=== PATIENT | male | born 1940 | race Caucasian/White ===

== ENCOUNTER 2020-06-15 17:29 | Inpatient (IN) | payer MEDICARE, BC ==
--- NOTE | 2020-06-15 17:45 | ED ---
General Adult HPI - General Stated complaint: ANTONIA,Weakness Time Seen by Provider: 06/15/20 17:30 Source: patient, RN notes reviewed, old records reviewed - History of Present Illness Initial comments: This is an 79-year-old male who presents emergency department via EMS. According to EMS they got a call that the patient was having difficulty breathing was somewhat altered when he arrived and difficult to arouse. Patient was put on BiPAP and given some breathing treatments on the way and he became much more alert and oriented. Patient himself is a poor historian he does state he was somewhat short of breath but currently does not have any complaints. At this point and we have no further history of no medication list and patient hasn't been here for 5-6 years. Family will be arriving shortly family did arrive and indicated to me that the patient's heart rate was down in the high 30s and low 40s earlier today and has when she called EMS. - Related Data Allergies Allergy/AdvReac Type Severity Reaction Status Date / Time No Known Allergies Allergy Verified 06/15/20 17:43 Review of Systems ROS Statement: Those systems with pertinent positive or pertinent negative responses have been documented in the HPI. ROS Other: All systems not noted in ROS Statement are negative. General Exam - General Exam Comments Initial Comments: GENERAL: Patient is well-developed and well-nourished. Patient is nontoxic and well- hydrated and is in mild distress. ENT: Neck is soft and supple. No significant lymphadenopathy is noted. Oropharynx is clear. Moist mucous membranes. Neck has full range of motion without eliciting any pain. EYES: The sclera were anicteric and conjunctiva were pink and moist. Extraocular movements were intact and pupils were equal round and reactive to light. Eyelids were unremarkable. PULMONARY: Patient has crackles bilaterally. CARDIOVASCULAR: There is a regular rate and rhythm without any murmurs gallops or rubs. ABDOMEN: Soft and nontender with normal bowel sounds. SKIN: Skin is clear with no lesions or rashes and otherwise unremarkable. NEUROLOGIC: Patient is alert and oriented 2. Cranial nerves II through XII are grossly intact. Patient cannot move left leg at all which she states is normal. MUSCULOSKELETAL: Patient has 1+ edema to the left leg down to the right. LYMPHATICS: No significant lymphadenopathy is noted PSYCHIATRIC: Normal psychiatric evaluation. Course Vital Signs 06/15/20 06/15/20 06/15/20 17:37 18:01 18:37 Pulse Rate 98 82 Respiratory 18 18 16 Rate Blood Pressure 102/73 114/69 O2 Sat by Pulse 92 L 95 Oximetry 06/15/20 06/15/20 06/15/20 19:10 19:17 19:34 Pulse Rate 82 Respiratory 18 Rate Blood Pressure O2 Sat by Pulse 95 90 L Oximetry 06/15/20 19:45 Pulse Rate 83 Respiratory 16 Rate Blood Pressure O2 Sat by Pulse Oximetry Medical Decision Making - Medical Decision Making EKG shows atrial fibrillation at a rate of 80 bpm QRS is 140 QT interval 400 QTC is 44 patient has a right bundle no block. Patient has some inverted T waves in leads V1 through V5 Patient had no bradycardic episodes while in the emergency department but the daughter insisted he was bradycardic at home. Chest x-ray shows no acute normalities. Computed tomography scan of the chest shows no PE however there is some patchy infiltrates in the bases bilaterally. Patient has had no cough he said no fever there is no white count. I spoke with [facility] hospitalist and they agreed to admit the patient I admitting the patient for bradycardia which the family states was happening at home however it has not occurred in the emergency department. I went back in the room to reevaluate the patient he was satting 98% while sleeping on 4 L. - Lab Data Result diagrams: 06/15/20 17:57 06/15/20 17:57 Lab Results 06/15/20 06/15/20 06/15/20 Range/Units 17:41 17:57 17:57 WBC 7.8 (3.8-10.6) k/uL RBC 4.47 (4.30-5.90) m/uL Hgb 11.5 L (13.0-17.5) gm/dL Hct 38.1 L (39.0-53.0) % MCV 85.3 (80.0-100.0) fL MCH 25.8 (25.0-35.0) pg MCHC 30.3 L (31.0-37.0) g/dL RDW 18.8 H (11.5-15.5) % Plt Count 259 (150-450) k/uL MPV 7.0 Neutrophils % 79 % Lymphocytes % 13 % Monocytes % 6 % Eosinophils % 1 % Basophils % 1 % Neutrophils # 6.1 (1.3-7.7) k/uL Lymphocytes # 1.0 (1.0-4.8) k/uL Monocytes # 0.5 (0-1.0) k/uL Eosinophils # 0.1 (0-0.7) k/uL Basophils # 0.0 (0-0.2) k/uL Hypochromasia Marked Anisocytosis Slight PT 11.9 (9.0-12.0) sec INR 1.1 (<1.2) APTT 25.0 (22.0-30.0) sec Sample Site ABG pH (7.35-7.45) ABG pCO2 (35-45) mmHg ABG pO2 (83-108) mmHg ABG HCO3 (21-25) mmol/L ABG Total CO2 (19-24) mmol/L ABG O2 Saturation (94-97) % ABG Base Excess mmol/L Nolan Test FiO2 % Sodium (137-145) mmol/L Potassium (3.5-5.1) mmol/L Chloride (98-107) mmol/L Carbon Dioxide (22-30) mmol/L Anion Gap mmol/L BUN (9-20) mg/dL Creatinine (0.66-1.25) mg/dL Est GFR (CKD-EPI)AfAm (>60 ml/min/1.73 sqM) Est GFR (CKD-EPI)NonAf (>60 ml/min/1.73 sqM) Glucose (74-99) mg/dL Lactic Ac Sepsis Rflx Plasma Lactic Acid Peewee (0.7-2.0) mmol/L Calcium (8.4-10.2) mg/dL Magnesium (1.6-2.3) mg/dL Total Bilirubin (0.2-1.3) mg/dL AST (17-59) U/L ALT (4-49) U/L Alkaline Phosphatase (38-126) U/L Troponin I (0.000-0.034) ng/mL NT-Pro-B Natriuret Pep pg/mL Total Protein (6.3-8.2) g/dL Albumin (3.5-5.0) g/dL Coronavirus (PCR) Not Detected (Not Detectd) 06/15/20 06/15/20 06/15/20 Range/Units 17:57 17:57 17:57 WBC (3.8-10.6) k/uL RBC (4.30-5.90) m/uL Hgb (13.0-17.5) gm/dL Hct (39.0-53.0) % MCV (80.0-100.0) fL MCH (25.0-35.0) pg MCHC (31.0-37.0) g/dL RDW (11.5-15.5) % Plt Count (150-450) k/uL MPV Neutrophils % % Lymphocytes % % Monocytes % % Eosinophils % % Basophils % % Neutrophils # (1.3-7.7) k/uL Lymphocytes # (1.0-4.8) k/uL Monocytes # (0-1.0) k/uL Eosinophils # (0-0.7) k/uL Basophils # (0-0.2) k/uL Hypochromasia Anisocytosis PT (9.0-12.0) sec INR (<1.2) APTT (22.0-30.0) sec Sample Site ABG pH (7.35-7.45) ABG pCO2 (35-45) mmHg ABG pO2 (83-108) mmHg ABG HCO3 (21-25) mmol/L ABG Total CO2 (19-24) mmol/L ABG O2 Saturation (94-97) % ABG Base Excess mmol/L Nolan Test FiO2 % Sodium 139 (137-145) mmol/L Potassium 5.1 (3.5-5.1) mmol/L Chloride 97 L (98-107) mmol/L Carbon Dioxide 31 H (22-30) mmol/L Anion Gap 11 mmol/L BUN 15 (9-20) mg/dL Creatinine 0.89 (0.66-1.25) mg/dL Est GFR (CKD-EPI)AfAm >90 (>60 ml/min/1.73 sqM) Est GFR (CKD-EPI)NonAf 80 (>60 ml/min/1.73 sqM) Glucose 162 H (74-99) mg/dL Lactic Ac Sepsis Rflx Plasma Lactic Acid Peewee 2.8 H* (0.7-2.0) mmol/L Calcium 9.4 (8.4-10.2) mg/dL Magnesium 1.9 (1.6-2.3) mg/dL Total Bilirubin 1.3 (0.2-1.3) mg/dL AST 37 (17-59) U/L ALT 11 (4-49) U/L Alkaline Phosphatase 63 (38-126) U/L Troponin I <0.012 (0.000-0.034) ng/mL NT-Pro-B Natriuret Pep pg/mL Total Protein 7.4 (6.3-8.2) g/dL Albumin 4.6 (3.5-5.0) g/dL Coronavirus (PCR) (Not Detectd) 06/15/20 06/15/20 06/15/20 Range/Units 17:57 18:26 19:36 WBC (3.8-10.6) k/uL RBC (4.30-5.90) m/uL Hgb (13.0-17.5) gm/dL Hct (39.0-53.0) % MCV (80.0-100.0) fL MCH (25.0-35.0) pg MCHC (31.0-37.0) g/dL RDW (11.5-15.5) % Plt Count (150-450) k/uL MPV Neutrophils % % Lymphocytes % % Monocytes % % Eosinophils % % Basophils % % Neutrophils # (1.3-7.7) k/uL Lymphocytes # (1.0-4.8) k/uL Monocytes # (0-1.0) k/uL Eosinophils # (0-0.7) k/uL Basophils # (0-0.2) k/uL Hypochromasia Anisocytosis PT (9.0-12.0) sec INR (<1.2) APTT (22.0-30.0) sec Sample Site Right Radial ABG pH 7.43 (7.35-7.45) ABG pCO2 46 H (35-45) mmHg ABG pO2 63 L (83-108) mmHg ABG HCO3 30 H (21-25) mmol/L ABG Total CO2 32 H (19-24) mmol/L ABG O2 Saturation 89.7 L (94-97) % ABG Base Excess 5.8 mmol/L Nolan Test Yes FiO2 45 % Sodium (137-145) mmol/L Potassium (3.5-5.1) mmol/L Chloride (98-107) mmol/L Carbon Dioxide (22-30) mmol/L Anion Gap mmol/L BUN (9-20) mg/dL Creatinine (0.66-1.25) mg/dL Est GFR (CKD-EPI)AfAm (>60 ml/min/1.73 sqM) Est GFR (CKD-EPI)NonAf (>60 ml/min/1.73 sqM) Glucose (74-99) mg/dL Lactic Ac Sepsis Rflx Y Plasma Lactic Acid Peewee (0.7-2.0) mmol/L Calcium (8.4-10.2) mg/dL Magnesium (1.6-2.3) mg/dL Total Bilirubin (0.2-1.3) mg/dL AST (17-59) U/L ALT (4-49) U/L Alkaline Phosphatase (38-126) U/L Troponin I (0.000-0.034) ng/mL NT-Pro-B Natriuret Pep 1720 pg/mL Total Protein (6.3-8.2) g/dL Albumin (3.5-5.0) g/dL Coronavirus (PCR) (Not Detectd) Disposition Clinical Impression: Bradycardia, Dyspnea Disposition: ADMITTED IP TO THIS HOSP Referrals: None,Stated [REFERRING] - 1-2 days Time of Disposition: 20:37
[2020-06-15 18:07] LABS: Anisocytosis Slight; Basophils % (A) 1 %; Eosinophils # (A) 0.1 k/uL (0-0.7); Eosinophils % (A) 1 %; HCT 38.1 % (39.0-53.0); HGB 11.5 gm/dL (13.0-17.5); Hypochromasia Marked; Lymphocytes % (A) 13 %; MCH 25.8 pg (25.0-35.0); MCHC 30.3 g/dL (31.0-37.0); MCV 85.3 fL (80.0-100.0); Monocytes # (A) 0.5 k/uL (0-1.0); Monocytes % (A) 6 %; Neutrophils # (A) 6.1 k/uL (1.3-7.7); Neutrophils % (A) 79 %; Platelet Count 259 k/uL (150-450); RBC 4.47 m/uL (4.30-5.90); RDW 18.8 % (11.5-15.5); WBC 7.8 k/uL (3.8-10.6)
[2020-06-15 18:14] LABS: INR 1.1 (<1.2); Prothrombin Time 11.9 sec (9.0-12.0)
[2020-06-15 18:17] LABS: ALT 11 U/L (4-49); AST 37 U/L (17-59); African American GFR (CKD) >90 (>60 ml/min/1.73 sqM); Albumin 4.6 g/dL (3.5-5.0); Alkaline Phosphatase 63 U/L (38-126); Anion Gap 11 mmol/L; Blood Urea Nitrogen 15 mg/dL (9-20); Calcium 9.4 mg/dL (8.4-10.2); Carbon Dioxide 31 mmol/L (22-30); Chloride 97 mmol/L (98-107); Glucose 162 mg/dL (74-99); Magnesium 1.9 mg/dL (1.6-2.3); Non-African American GFR(CKD) 80 (>60 ml/min/1.73 sqM); Sodium 139 mmol/L (137-145); Total Bilirubin 1.3 mg/dL (0.2-1.3); Total Protein 7.4 g/dL (6.3-8.2)
[2020-06-15 18:24] LABS: Potassium 5.1 mmol/L (3.5-5.1)
--- NOTE | 2020-06-15 18:35 | XR ---
EXAMINATION TYPE: XR chest 2V DATE OF EXAM: 06/15/2020 COMPARISON: NONE HISTORY: Short of breath and weakness TECHNIQUE: 2 views FINDINGS: Heart is normal. There is some atelectasis left lung base. There is no pleural effusion. Th ere are no hilar masses. There is poor inspiration. IMPRESSION: There is mild atelectasis left lung base. No heart failure.
[2020-06-15] MEDS ORDERED: IPRATROPIUM-ALBUTEROL 3 ML NEB INHALATION STA (19:24)
[2020-06-15 19:38] LABS: ABG Base Excess 5.8 mmol/L; ABG HCO3 30 mmol/L (21-25); ABG Oxygen Saturation 89.7 % (94-97); ABG PCO2 46 mmHg (35-45); ABG PH 7.43 (7.35-7.45); ABG PO2 63 mmHg (83-108); ABG TCO2 32 mmol/L (19-24); Allen Test Performed? Yes
--- NOTE | 2020-06-15 20:28 | CT ---
EXAMINATION TYPE: CT chest angio for PE DATE OF EXAM: 06/15/2020 COMPARISON: None HISTORY: Dyspnea. CT DLP: 416.2 mGycm Automated exposure control for dose reduction was used. CONTRAST: Performed with IV Contrast, patient injected with 100ml mL of Isovue 300. Images obtained from the thoracic inlet to the diaphragm with IV contrast and 3-D post processed imag es. There is coarse interstitial infiltrate and atelectasis in the mid and lower lung madrigal. There is el evation of the diaphragms. Heart is enlarged. There is no pericardial effusion. There is no pleural e ffusion. There are bilateral bronchial lymph nodes that measure up to 1 cm. Thoracic aorta is intact without evidence of aneurysm or dissection. The ascending aorta measures 3.7 cm. There is normal contrast opacification of the pulmonary arteries. There are no filling defects. There is some narrowing of the lower lobe bronchi. There is spurring in the thoracic spine. There is no compression fracture. IMPRESSION: No evidence of pulmonary embolism. Bilateral lower lobe pulmonary patchy interstitial infiltrates and atelectasis.
[2020-06-15] MEDS ORDERED: methylPREDNISolone SOD SUCCI 125 MG/2 ML VIAL IV STA (20:40)
[2020-06-15] MEDS ORDERED: traZODone HCL 50 MG TAB PO PRN (22:01)
[2020-06-16] MEDS: methylPREDNISolone SOD SUCCI 125 MG/2 ML VIAL IV SCH ×2 (03:10→09:34)
[2020-06-16] MEDS: ACETAMINOPHEN TAB 325 MG TAB PO PRN ×2 (05:42→19:00)
[2020-06-16 06:08] LABS: Glucose,Whole Blood 386 mg/dL (75-99)
[2020-06-16] MEDS: INSULIN ASPART (NovoLOG) 100 UNIT/ML VIAL SQ SCH ×5 (06:26→17:08)
[2020-06-16] MEDS: IPRATROPIUM-ALBUTEROL 3 ML NEB INHALATION PRN ×3 (07:18→19:58)
[2020-06-16] MEDS ORDERED: FUROSEMIDE 10 MG/ML 4 ML VIAL IV SCH (09:00)
[2020-06-16] MEDS ORDERED: INSULIN DETEMIR (LEVEMIR) 100 UNIT/ML SYR SQ SCH (09:00)
[2020-06-16] MEDS: APIXABAN 5 MG TAB PO SCH (09:24)
[2020-06-16] MEDS: TAMSULOSIN 0.4 MG CAP.ER.24H PO SCH (09:25)
[2020-06-16] MEDS: BENZONATATE 100 MG CAP PO PRN ×2 (09:25→19:00)
[2020-06-16] MEDS: METOPROLOL TARTRATE 50 MG TAB PO SCH (09:28)
--- NOTE | 2020-06-16 09:39 | US ---
EXAMINATION TYPE: US venous doppler duplex LE LT DATE OF EXAM: 06/16/2020 9:01 AM COMPARISON: NONE CLINICAL HISTORY: swelling. SIDE PERFORMED: Left TECHNIQUE: The lower extremity deep venous system is examined utilizing real time linear array sonog leona with graded compression, doppler sonography and color-flow sonography. VESSELS IMAGED: Common Femoral Vein Deep Femoral Vein Greater Saphenous Vein * Femoral Vein Popliteal Vein Small Saphenous Vein * Proximal Calf Veins (* superficial vessels) Left Leg: Negative for DVT IMPRESSION: 1. Left lower extremity ultrasound negative for deep venous thrombosis.
--- NOTE | 2020-06-16 10:58 | ECHOF ---
Referral Reason:sob MEASUREMENTS -------- HEIGHT: 170.2 cm WEIGHT: 78.9 kg BP: 148/82 RVIDd: 2.9 cm (< 3.3) IVSd: 1.3 cm (0.6 - 1.1) LVIDd: 3.9 cm (3.9 - 5.3) LVPWd: 1.3 cm (0.6 - 1.1) IVSs: 1.6 cm LVIDs: 2.5 cm LVPWs: 1.3 cm LA Diam: 4.5 cm (2.7 - 3.8) Ao Diam: 4.0 cm (2.0 - 3.7) AV Cusp: 1.6 cm (1.5 - 2.6) LA Diam: 4.3 cm (2.7 - 3.8) MV EXCURSION: 18.807 mm (> 18.000) MV EF SLOPE: 69 mm/s (70 - 150) EPSS: 0.9 cm RAP: 5.00 mmHg RVSP: 28.58 mmHg FINDINGS -------- Atrial fibrillation. This was a technically adequate study. The left ventricular size is normal. There is mild concentric left ventricular hypertrophy. Overa ll left ventricular systolic function is low-normal with, an EF between 50 - 55 %. The right ventricle is normal in size. The left atrial size is normal. The right atrial size is normal. The aortic valve is trileaflet, and appears structurally normal. No aortic stenosis or regurgitation. Mild mitral regurgitation is present. Mild tricuspid regurgitation present. The right ventricular systolic pressure, as measured by Doppl er, is 28.58mmHg. Trace/mild (physiologic) pulmonic regurgitation. The aortic root size is normal. There is no pericardial effusion. CONCLUSIONS -------- 1. Atrial fibrillation. 2. The left ventricular size is normal. 3. There is mild concentric left ventricular hypertrophy. 4. Overall left ventricular systolic function is low-normal with, an EF between 50 - 55 %. 5. The right ventricle is normal in size. 6. The left atrial size is normal. 7. The right atrial size is normal. 8. Mild mitral regurgitation is present. 9. Mild tricuspid regurgitation present. 10. The right ventricular systolic pressure, as measured by Doppler, is 28.58mmHg. 11. Trace/mild (physiologic) pulmonic regurgitation. 12. The aortic root size is normal. 13. There is no pericardial effusion. CONFERENCE DIRECTOR: Khadijah Russell RDCS
[2020-06-16 11:34] LABS: Glucose,Whole Blood 428 mg/dL (75-99)
--- NOTE | 2020-06-16 11:48 | P.CRDCN ---
History of Present Illness History of present illness: cough x2 months HISTORY OF PRESENTING ILLNESS This is a pleasant 79-year-old male past medical history significant for any persistent atrial fibrillation on long-term anticoagulation, COPD, diabetes mellitus, dyslipidemia, CVA and hypertension. He follows in the office with Dr. Soria. We have been asked to see in consultation for bradycardia. He presented to the hospital with complaints of cough x2 months with shortness of breath and altered mental status. Apparently the family was concerned because at home they felt his pulse and it was 30-40. Since being in the hospital telemetry tracings indicate persistent atrial fibrillation with heart rate has been in the 80's. Blood pressure 128/78. Maintaining oxygen saturation on nasal cannula. He is seen and examined sitting up in bed in no acute distress. He is somewhat of a poor historian. He continues to have a wet cough. He denies shortness of breath, chest pain, dizziness or palpitations. Echocardiogram ob tained reveals preserved LV systolic function with ejection fraction 50-55%. DIAGNOSTICS EKG reveals atrial fibrillation, right bundle branch block heart rate of 88. Telemetry tracings indicate in atrial fibrillation with heart rate in the 80s. Chest xray mild atelectasis at the left lung base. CTA is negative for pulmonary embolism with bilateral lower lobe patchy interstitial infiltrates and atelectasis. Laboratory reviewed, WBC 7.8, hemoglobin 11.5, platelets 259, pCO2 46, pO2 63, bicarb 30, pH 7.43, sodium 139, potassium 4.1, creatinine 0.89, lactic acid on admission 2. 8 repeat 1.9, cardiac enzymes negative 1 and proBNP 1720.. Current cardiac medications include Eliquis 5 mg twice a day, enalapril 2.5 mg daily, Lasix 40 mg daily, atorvastatin 20 mg daily, diltiazem 30 mg 3 times a d ay, Lopressor 100 mg twice a day. REVIEW OF SYSTEMS At the time of my exam: CONSTITUTIONAL: Denies fever or chills. CARDIOVASCULAR: Denies chest pain, shortness of breath, orthopnea, PND or palpitations. RESPIRATORY: Complains of cough. GASTROINTESTINAL: Denies abdominal pain, diarrhea, constipation, nausea or vomiting. MUSCULOSKELETAL: Denies myalgias. NEUROLOGIC: Denies numbness, tingling, headacbe or weakness. ENDOCRINE: Denies fatigue, weight change, polydipsia or polyurina. GENITOURINARY: Denies burning, hematuria or urgency with micturation. HEMATOLOGIC: Denies history of anemia or bleeding. PHYSICAL EXAMINATION Blood pressure 128/78 heart rate 85 afebrile and maintaining oxygen saturation on nasal cannula. CONSTITUTIONAL: No apparent distress. HEENT: Head is normocephalic. Pupils are equal, round. Sclerae anicteric. Mucous membranes of the mouth are moist. No JVD. No carotid bruit. CHEST EXAMINATION: Scattered rhonchi, no rales or wheezes. No chest wall tenderness is noted on palpation or with deep breathing. HEART EXAMINATION: Irregular rate and rhythm. S1, S2 heard. No murmurs, gallops or rub. ABDOMEN: Soft, nontender. Positive bowel sounds. EXTREMITIES: 2+ peripheral pulses, no lower extremity edema and no calf tenderness. NEUROLOGIC EXAMINATION: Patient is awake, alert and oriented. ASSESSMENT Cough with bilateral infiltrates, presumed COVID. Lactic acidosis Chronic persistent atrial fibrillation COPD Diabetes mellitus Hypertension CVA Dyslipidemia PLAN Given his clinical picture, recommend repeat send out COVID test despite negative rapid. Resume cardizem as previously ordered. Continue lopressor, lasix, atorvastatin, enalapril and eliquis as previously ordered. Possibly the family was having a difficult time palpating his pulse due to his afib, or he was having some bradycardia due to coughing. There has been no bradycardia noted since admission. No further cardiac testing at this time. Thank you kindly for this consultation. Nurse Practitioner note has been reviewed, I agree with a documented findings and plan of care. Patient was seen and examined. 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 History of Any Multi-Drug Resistant Organisms: None Reported Past Surgical History: No Surgical Hx Reported Smoking Status: Never smoker Past Alcohol Use History: Daily Past Drug Use History: None Reported Medications and Allergies Home Medications Medication Instructions Recorded Confirmed Type Acetaminophen [Tylenol] 1,000 mg PO ONCE PRN 06/15/20 06/15/20 History Albuterol Inhaler [Ventolin Hfa 1 - 2 puff INHALATION RT-Q6H PRN 06/15/20 06/15/20 History Inhaler] Apixaban [Eliquis] 5 mg PO BID 06/15/20 06/15/20 History Ascorbic Acid [Vitamin C] 500 mg PO DAILY 06/15/20 06/15/20 History Atorvastatin [Lipitor] 20 mg PO HS 06/15/20 06/15/20 History Citalopram Hydrobromide 20 mg PO DAILY 06/15/20 06/15/20 History [Citalopram HBr] Cyclobenzaprine [Flexeril] 5 mg PO Q8H PRN 06/15/20 06/15/20 History Enalapril Maleate 2.5 mg PO DAILY 06/15/20 06/15/20 History Ferrous Sulfate [Iron (65 MG 325 mg PO BID 06/15/20 06/15/20 History Elemental)] Flaxseed Oil 1,000 mg PO DAILY 06/15/20 06/15/20 History Furosemide [Lasix] 40 mg PO DAILY 06/15/20 06/15/20 History Gabapentin [Neurontin] 600 mg PO TID PRN 06/15/20 06/15/20 History HYDROcodone/APAP 5-325MG [[place] 1 tab PO Q6H PRN 06/15/20 06/15/20 History 5-325] Insulin Detemir [Levemir Flextouch] 32 unit SQ BID 06/15/20 06/15/20 History Insulin Lispro [humaLOG Kwikpen] 17 unit SQ TID-W/MEALS 06/15/20 06/15/20 History Metoprolol Tartrate [Lopressor] 100 mg PO BID 06/15/20 06/15/20 History Pantoprazole Sodium [Protonix] 40 mg PO DAILY 06/15/20 06/15/20 History Tamsulosin HCl [Flomax] 0.4 mg PO DAILY 06/15/20 06/15/20 History dilTIAZem HCL [Diltiazem HCl] 30 mg PO TID 06/15/20 06/15/20 History traZODone HCL [Desyrel] 50 mg PO HS PRN 06/15/20 06/15/20 History Allergies Allergy/AdvReac Type Severity Reaction Status Date / Time No Known Allergies Allergy Verified 06/15/20 20:50 Physical Exam Vitals: Vital Signs Temp Pulse Pulse Resp BP BP Pulse Ox 06/16/20 08:25 98.1 F 140 H 18 128/78 06/16/20 07:30 104 H 06/16/20 07:18 104 H 06/16/20 04:00 95 18 148/82 96 06/16/20 02:00 95 18 06/15/20 23:30 98.4 F 95 18 123/57 93 L 06/15/20 21:16 98.5 F 98 20 140/68 97 06/15/20 21:00 82 95 06/15/20 20:40 92 18 115/90 94 L 06/15/20 19:45 83 16 06/15/20 19:34 82 18 06/15/20 19:17 90 L 06/15/20 19:10 95 06/15/20 18:37 82 16 114/69 95 06/15/20 18:01 18 06/15/20 17:37 98 18 102/73 92 L Intake and Output 06/15/20 06/16/20 06/16/20 22:59 06:59 14:59 Intake Total 240 Balance 240 Intake: Oral 240 Other: Voiding Method Diaper # Voids 1 Weight 79.379 kg 79 kg Results 06/15/20 17:57 06/15/20 17:57 Cardiac Enzymes 06/15/20 06/15/20 Range/Units 17:57 17:57 AST 37 (17-59) U/L Troponin I <0.012 (0.000-0.034) ng/mL Coagulation 06/15/20 Range/Units 17:57 PT 11.9 (9.0-12.0) sec APTT 25.0 (22.0-30.0) sec CBC 06/15/20 Range/Units 17:57 WBC 7.8 (3.8-10.6) k/uL RBC 4.47 (4.30-5.90) m/uL Hgb 11.5 L (13.0-17.5) gm/dL Hct 38.1 L (39.0-53.0) % Plt Count 259 (150-450) k/uL Comprehensive Metabolic Panel 06/15/20 Range/Units 17:57 Sodium 139 (137-145) mmol/L Potassium 5.1 (3.5-5.1) mmol/L Chloride 97 L (98-107) mmol/L Carbon Dioxide 31 H (22-30) mmol/L BUN 15 (9-20) mg/dL Creatinine 0.89 (0.66-1.25) mg/dL Glucose 162 H (74-99) mg/dL Calcium 9.4 (8.4-10.2) mg/dL AST 37 (17-59) U/L ALT 11 (4-49) U/L Alkaline Phosphatase 63 (38-126) U/L Total Protein 7.4 (6.3-8.2) g/dL Albumin 4.6 (3.5-5.0) g/dL Current Medications Generic Name Dose Route Start Last Admin Trade Name Freq PRN Reason Stop Dose Admin Acetaminophen 650 mg 06/15/20 22:02 06/16/20 05:42 Acetaminophen Tab 325 Mg Tab PO 650 mg Q6HR PRN Administration Fever and/ or Pain Albuterol/Ipratropium 3 ml 06/15/20 20:40 06/16/20 07:18 Ipratropium-Albuterol 3 Ml Neb INHALATION 3 ml RT-QID PRN Administration Shortness Of Breath Or Wheezing Apixaban 5 mg 06/16/20 09:00 06/16/20 09:24 Apixaban 5 Mg Tab PO 5 mg BID JAY Administration Benzonatate 100 mg 06/16/20 08:24 06/16/20 09:25 Benzonatate 100 Mg Cap PO 100 mg TID PRN Administration Cough Furosemide 40 mg 06/16/20 09:00 Furosemide 10 Mg/Ml 4 Ml Vial IV Q12HR [facility] Gabapentin 600 mg 06/15/20 22:01 Gabapentin 300 Mg Cap PO TID PRN Pain Insulin Aspart 0 unit 06/16/20 07:30 06/16/20 06:26 Insulin Aspart (Novolog) 100 Unit/Ml Vial SQ 7 unit ACHS [facility] Administration Protocol Insulin Aspart 17 unit 06/16/20 12:30 Insulin Aspart (Novolog) 100 Unit/Ml Vial SQ TID-W/MEALS [facility] Insulin Detemir 32 unit 06/16/20 09:00 06/16/20 08:51 Insulin Detemir (Levemir) 100 Unit/Ml Syr SQ 32 unit BID [facility] Administration Methylprednisolone Sodium Succinate 60 mg 06/16/20 03:00 06/16/20 03:10 Methylprednisolone Sod Succi 125 Mg/2 Ml Vial IV 60 mg Q6H [facility] Administration Metoprolol Tartrate 100 mg 06/16/20 09:00 06/16/20 09:28 Metoprolol Tartrate 50 Mg Tab PO 100 mg BID JAY Administration Tamsulosin HCl 0.4 mg 06/16/20 09:00 06/16/20 09:25 Tamsulosin 0.4 Mg Cap.Er.24h PO 0.4 mg DAILY JAY Administration Trazodone HCl 50 mg 06/15/20 22:01 Trazodone Hcl 50 Mg Tab PO HS PRN Insomnia Intake and Output 06/15/20 06/16/20 06/16/20 22:59 06:59 14:59 Intake Total 240 Balance 240 Intake: Oral 240 Other: Voiding Method Diaper # Voids 1 Weight 79.379 kg 79 kg 06/15/20 17:57 06/15/20 17:57
--- NOTE | 2020-06-16 12:19 | P.HPIM ---
History of Present Illness 79-year-old male came in to was department complains of shortness of breath the patient shortness of breath is much better now patient usually uses certainly this of oxygen patient was subsequently admitted for bradycardia patient is bit tachycardic patient does have history of atrial fibrillation. Patient does have a cough. had a CT angios the chest which showed patchy bilateral lower lobe infiltrates and some atelectasis without any significant day infiltrate with air bronchogram. Patient had does have bronchitis which are thick and. Patient denied any fever chills patient doesn't have any leukocytosis. Review of Systems S of the review of systems are negative patient is a bit poor historian patient does have cough unable to bring up anything. 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 History of Any Multi-Drug Resistant Organisms: None Reported Past Surgical History: No Surgical Hx Reported Smoking Status: Never smoker Past Alcohol Use History: Daily Past Drug Use History: None Reported Medications and Allergies Home Medications Medication Instructions Recorded Confirmed Type Acetaminophen [Tylenol] 1,000 mg PO ONCE PRN 06/15/20 06/15/20 History Albuterol Inhaler [Ventolin Hfa 1 - 2 puff INHALATION RT-Q6H PRN 06/15/20 06/15/20 History Inhaler] Apixaban [Eliquis] 5 mg PO BID 06/15/20 06/15/20 History Ascorbic Acid [Vitamin C] 500 mg PO DAILY 06/15/20 06/15/20 History Atorvastatin [Lipitor] 20 mg PO HS 06/15/20 06/15/20 History Citalopram Hydrobromide 20 mg PO DAILY 06/15/20 06/15/20 History [Citalopram HBr] Cyclobenzaprine [Flexeril] 5 mg PO Q8H PRN 06/15/20 06/15/20 History Enalapril Maleate 2.5 mg PO DAILY 06/15/20 06/15/20 History Ferrous Sulfate [Iron (65 MG 325 mg PO BID 06/15/20 06/15/20 History Elemental)] Flaxseed Oil 1,000 mg PO DAILY 06/15/20 06/15/20 History Furosemide [Lasix] 40 mg PO DAILY 06/15/20 06/15/20 History Gabapentin [Neurontin] 600 mg PO TID PRN 06/15/20 06/15/20 History HYDROcodone/APAP 5-325MG [[place] 1 tab PO Q6H PRN 06/15/20 06/15/20 History 5-325] Insulin Detemir [Levemir Flextouch] 32 unit SQ BID 06/15/20 06/15/20 History Insulin Lispro [humaLOG Kwikpen] 17 unit SQ TID-W/MEALS 06/15/20 06/15/20 History Metoprolol Tartrate [Lopressor] 100 mg PO BID 06/15/20 06/15/20 History Pantoprazole Sodium [Protonix] 40 mg PO DAILY 06/15/20 06/15/20 History Tamsulosin HCl [Flomax] 0.4 mg PO DAILY 06/15/20 06/15/20 History dilTIAZem HCL [Diltiazem HCl] 30 mg PO TID 06/15/20 06/15/20 History traZODone HCL [Desyrel] 50 mg PO HS PRN 06/15/20 06/15/20 History Allergies Allergy/AdvReac Type Severity Reaction Status Date / Time No Known Allergies Allergy Verified 06/15/20 20:50 Physical Exam Vitals: Vital Signs Temp Pulse Pulse Resp BP BP Pulse Ox 06/16/20 08:25 98.1 F 140 H 18 128/78 06/16/20 07:30 104 H 06/16/20 07:18 104 H 06/16/20 04:00 95 18 148/82 96 06/16/20 02:00 95 18 06/15/20 23:30 98.4 F 95 18 123/57 93 L 06/15/20 21:16 98.5 F 98 20 140/68 97 06/15/20 21:00 82 95 06/15/20 20:40 92 18 115/90 94 L 06/15/20 19:45 83 16 06/15/20 19:34 82 18 06/15/20 19:17 90 L 06/15/20 19:10 95 06/15/20 18:37 82 16 114/69 95 06/15/20 18:01 18 06/15/20 17:37 98 18 102/73 92 L Intake and Output 06/15/20 06/16/20 06/16/20 22:59 06:59 14:59 Intake Total 240 Output Total 560 Balance 240 -560 Intake: Oral 240 Output: Urine 560 Other: Voiding Method Diaper Incontinent # Voids 1 Weight 79.379 kg 79 kg PHYSICAL EXAMINATION: GENERAL: The patient is alert and oriented x3, not in any acute distress. Well developed, well nourished. HEENT: Pupils are round and equally reacting to light. EOMI. No scleral icterus. No conjunctival pallor. Normocephalic, atraumatic. No pharyngeal erythema. No thyromegaly. CARDIOVASCULAR: S1 and S2 present. No murmurs, rubs, or gallops. PULMONARY: Mildly decreased air entry into bilateral lung madrigal. ABDOMEN: Soft, nontender, nondistended, normoactive bowel sounds. No palpable organomegaly. MUSCULOSKELETAL: No joint swelling or deformity. EXTREMITIES: No cyanosis, clubbing, or pedal edema. NEUROLOGICAL: Gross neurological examination did not reveal any focal deficits. SKIN: No rashes. Results CBC & Chem 7: 06/15/20 17:57 06/15/20 17:57 Labs: Abnormal Lab Results - Last 24 Hours (Table) 06/15/20 06/15/20 06/15/20 Range/Units 17:57 17:57 17:57 Hgb 11.5 L (13.0-17.5) gm/dL Hct 38.1 L (39.0-53.0) % MCHC 30.3 L (31.0-37.0) g/dL RDW 18.8 H (11.5-15.5) % ABG pCO2 (35-45) mmHg ABG pO2 (83-108) mmHg ABG HCO3 (21-25) mmol/L ABG Total CO2 (19-24) mmol/L ABG O2 Saturation (94-97) % Chloride 97 L (98-107) mmol/L Carbon Dioxide 31 H (22-30) mmol/L Glucose 162 H (74-99) mg/dL POC Glucose (mg/dL) (75-99) mg/dL Plasma Lactic Acid Peewee 2.8 H* (0.7-2.0) mmol/L 06/15/20 06/16/20 06/16/20 Range/Units 19:36 06:07 11:33 Hgb (13.0-17.5) gm/dL Hct (39.0-53.0) % MCHC (31.0-37.0) g/dL RDW (11.5-15.5) % ABG pCO2 46 H (35-45) mmHg ABG pO2 63 L (83-108) mmHg ABG HCO3 30 H (21-25) mmol/L ABG Total CO2 32 H (19-24) mmol/L ABG O2 Saturation 89.7 L (94-97) % Chloride (98-107) mmol/L Carbon Dioxide (22-30) mmol/L Glucose (74-99) mg/dL POC Glucose (mg/dL) 386 H 428 H (75-99) mg/dL Plasma Lactic Acid Peewee (0.7-2.0) mmol/L Thrombosis Risk Factor Assmnt - Choose All That Apply Each Factor Represents 1 point: Heart failure (<1month), Medical pt on bed rest, Swollen legs (current) Other Risk Factors: Yes Each Risk Factor Represents 3 Points: Age 75 years or older Other congenital or acquired thrombophilia - If yes, enter type in comment: No Thrombosis Risk Factor Assessment Total Risk Factor Score: 6 Thrombosis Risk Factor Assessment Level: High Risk Assessment and Plan Plan: Shortness of breath: Possible etiology being the bronchitis with possible bronchopneumonia patient was started on Rocephin no evidence of covid 19. Patient may have some restrictive lung disease from his of pasty may have sleep apnea as well. I from chronic hypoxic respiratory failure uses 2 L of onset at home unsure of the etiology of his chronic hypoxic respiratory failure, possibility of COPD. -Atrial fibrillation: Chronic A. fib presently rate controlled patient was resumed on his home regimen patient was initially bradycardic when he came to ER patient has normal ejection fraction, cardiology evaluated the patient. Type 2 diabetes mellitus uncontrolled elevated blood sugars secondary to systemic steroids which will be discontinued as there is no significantly wheezing and patient will not benefit from systemic steroids patient will be started on inhaled steroids needed will increase the dose of long-acting insulin and blood sugars is expected to stay have for the next couple days -Hyperlipidemia -CVA/TIA in the past GI prophylaxis with Pepcid
--- NOTE | 2020-06-16 12:54 | FL ---
EXAMINATION TYPE: FL barium swallow w video DATE OF EXAM: 06/16/2020 COMPARISON: NONE HISTORY: Noisy swelling test bedside, abnormal clinical findings TECHNIQUE: Fluoroscopy. FINDINGS: Fluoroscopic guidance was provided for the procedure performed in conjunction with the [facility] pathology department. Please see complete report forthcoming from the Speech Pathology departmen t. Various consistencies from thin liquid to solids were administered. Fluoroscopy time 1 minute 7 seconds. Number of images: 0. No aspiration or penetration was evident. No significant pooling was observed in the vallecula. There was normal propulsion of the bolus. IMPRESSION: 1. Normal modified barium swallow.
--- NOTE | 2020-06-16 12:58 | P.CNPUL ---
History of Present Illness Consult date: 06/16/20 Requesting physician: Gabriela Agrawal Reason for consult: dyspnea, cough, pneumonia, abnormal CXR/CT Chief complaint: Dyspnea History of present illness: 79-year-old male, seen in the emergency department, 06/15/2020. Apparently, the patient came into the emergency department, because of difficulty in breathing. Apparently the patient was a bit lethargic and difficult to arouse and the patient was placed on BiPAP and given some breathing treatments. Subsequent to that, the patient became much more alert and oriented. The patient himself is a very poor historian according to the ER physician and I certainly agree with that. Some the issue is related to his accident, as the patient apparently is from [facility]. I had a very difficult time understanding him today. He did not really give a cogent history. His chest x-ray showed some mild abnormalities but his CAT scan suggested the possibility of some basilar atelectasis or even bronchopneumonia. He does have a wet congested cough and probably could produce his sputum. Currently, he is on 5 L nasal cannula, with saturations of 95%. Heart rate 75, respiratory rate 18, and blood pressure 118/69. He has been afebrile. Labs reveal a white count of 7.8, hemoglobin 11.5, hematocrit 38.1, and a platelet count of 259,000. Initial blood gases showed a pO2 of 63, pCO2 46, pH is 7.43. That was on 45% oxygen. Sodium 139, potassium 5.1, chloride 97, CO2 31, anion gap 11, BUN 15, and creatinine 0.89. COVID 19 testing was negative. Review of Systems REVIEW OF SYSTEMS: CONSTITUTIONAL: [Negative.] NEUROLOGIC: Mental status changes and lethargy. HEENT: [ Negative.] CARDIAC: [Negative.] PULMONARY: Shortness of breath. GI: [Negative.] : [Negative.] RHEUMATOLOGIC: [ Negative.] IMMUNOLOGIC: [ Negative.] ENDOCRINE: [Negative. 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 History of Any Multi-Drug Resistant Organisms: None Reported Past Surgical History: No Surgical Hx Reported Smoking Status: Never smoker Past Alcohol Use History: Daily Past Drug Use History: None Reported Medications and Allergies Home Medications Medication Instructions Recorded Confirmed Type Acetaminophen [Tylenol] 1,000 mg PO ONCE PRN 06/15/20 06/15/20 History Albuterol Inhaler [Ventolin Hfa 1 - 2 puff INHALATION RT-Q6H PRN 06/15/20 06/15/20 History Inhaler] Apixaban [Eliquis] 5 mg PO BID 06/15/20 06/15/20 History Ascorbic Acid [Vitamin C] 500 mg PO DAILY 06/15/20 06/15/20 History Atorvastatin [Lipitor] 20 mg PO HS 06/15/20 06/15/20 History Citalopram Hydrobromide 20 mg PO DAILY 06/15/20 06/15/20 History [Citalopram HBr] Cyclobenzaprine [Flexeril] 5 mg PO Q8H PRN 06/15/20 06/15/20 History Enalapril Maleate 2.5 mg PO DAILY 06/15/20 06/15/20 History Ferrous Sulfate [Iron (65 MG 325 mg PO BID 06/15/20 06/15/20 History Elemental)] Flaxseed Oil 1,000 mg PO DAILY 06/15/20 06/15/20 History Furosemide [Lasix] 40 mg PO DAILY 06/15/20 06/15/20 History Gabapentin [Neurontin] 600 mg PO TID PRN 06/15/20 06/15/20 History HYDROcodone/APAP 5-325MG [[place] 1 tab PO Q6H PRN 06/15/20 06/15/20 History 5-325] Insulin Detemir [Levemir Flextouch] 32 unit SQ BID 06/15/20 06/15/20 History Insulin Lispro [humaLOG Kwikpen] 17 unit SQ TID-W/MEALS 06/15/20 06/15/20 History Metoprolol Tartrate [Lopressor] 100 mg PO BID 06/15/20 06/15/20 History Pantoprazole Sodium [Protonix] 40 mg PO DAILY 06/15/20 06/15/20 History Tamsulosin HCl [Flomax] 0.4 mg PO DAILY 06/15/20 06/15/20 History dilTIAZem HCL [Diltiazem HCl] 30 mg PO TID 06/15/20 06/15/20 History traZODone HCL [Desyrel] 50 mg PO HS PRN 06/15/20 06/15/20 History Allergies Allergy/AdvReac Type Severity Reaction Status Date / Time No Known Allergies Allergy Verified 06/15/20 20:50 Physical Exam Osteopathic Statement: *. No significant issues noted on an osteopathic structural exam other than those noted in the History and Physical/Consult. Vitals: Vital Signs Temp Pulse Pulse Resp BP BP Pulse Ox 06/16/20 08:25 98.1 F 140 H 18 128/78 06/16/20 07:30 104 H 06/16/20 07:18 104 H 06/16/20 04:00 95 18 148/82 96 06/16/20 02:00 95 18 06/15/20 23:30 98.4 F 95 18 123/57 93 L 06/15/20 21:16 98.5 F 98 20 140/68 97 06/15/20 21:00 82 95 06/15/20 20:40 92 18 115/90 94 L 06/15/20 19:45 83 16 06/15/20 19:34 82 18 06/15/20 19:17 90 L 06/15/20 19:10 95 06/15/20 18:37 82 16 114/69 95 06/15/20 18:01 18 06/15/20 17:37 98 18 102/73 92 L Intake and Output 06/15/20 06/16/20 06/16/20 22:59 06:59 14:59 Intake Total 240 Output Total 560 Balance 240 -560 Intake: Oral 240 Output: Urine 560 Other: Voiding Method Diaper Incontinent # Voids 1 Weight 79.379 kg 79 kg No acute distress, oriented 3. Nasal O2 at 5 L/m. No obvious respiratory distress, conversational dyspnea, or audible wheezing. HEENT examination is grossly unremarkable. Mucous membranes are moist. No oral lesions. Neck supple. Full range of motion. No adenopathy thyromegaly or neck vein distention. Cardiovascular examination reveals regular rhythm rate. S1-S2 normal. No S3 or S4. No discernible murmur noted. Heart rate is 75 bpm. Lungs reveal coarse bilateral rhonchi. Breath sounds are equal bilaterally but diminished throughout. A few scattered crackles are noted. No wheezes. Abdomen soft bowel sounds are heard. No masses or tenderness. Extremities are intact. No cyanosis clubbing or edema. Skin is without rash or lesion. Neurologic examination is brief but nonfocal. Results - Laboratory Findings CBC and BMP: 06/15/20 17:57 06/15/20 17:57 ABG ABG pH 7.43 (7.35-7.45) 06/15/20 19:36 ABG pCO2 46 mmHg (35-45) H 06/15/20 19:36 ABG pO2 63 mmHg (83-108) L 06/15/20 19:36 ABG O2 Saturation 89.7 % (94-97) L 06/15/20 19:36 PT/INR, D-dimer PT 11.9 sec (9.0-12.0) 06/15/20 17:57 INR 1.1 (<1.2) 06/15/20 17:57 Abnormal lab findings: Abnormal Labs 06/15/20 06/15/20 06/15/20 17:57 17:57 17:57 Hgb 11.5 L Hct 38.1 L MCHC 30.3 L RDW 18.8 H ABG pCO2 ABG pO2 ABG HCO3 ABG Total CO2 ABG O2 Saturation Chloride 97 L Carbon Dioxide 31 H Glucose 162 H POC Glucose (mg/dL) Plasma Lactic Acid Peewee 2.8 H* 06/15/20 06/16/20 06/16/20 19:36 06:07 11:33 Hgb Hct MCHC RDW ABG pCO2 46 H ABG pO2 63 L ABG HCO3 30 H ABG Total CO2 32 H ABG O2 Saturation 89.7 L Chloride Carbon Dioxide Glucose POC Glucose (mg/dL) 386 H 428 H Plasma Lactic Acid Peewee - Diagnostic Findings Chest x-ray: image reviewed CT scan - chest: image reviewed U/S of Legs: image reviewed Assessment and Plan Assessment: Shortness of breath, likely secondary to acute purulent tracheobronchitis or bronchopneumonia. History of atrial fibrillation. History of heart failure. History of CVA, with residual left-sided weakness. History of diabetes mellitus. History of essential hypertension. History of hyperlipidemia. Lifelong nonsmoker. Plan: Plan dated 06/16/2020. The patient is likely suffering from a respiratory infection, either bronchitis or pneumonia. The patient tells me he is a lifelong nonsmoker. Currently, the patient is on Pulmicort, 0.5 mg twice a day, duonebs, and antibiotics. We will add some formoterol to his regimen and increase the Pulmicort up to 1 mg. We do recommend the administration of antibiotics. I will order a pro-calcitonin level. Additional recommendations and suggestions are forthcoming. We will continue to follow along and make additional recommendations where appropriate. Time with Patient: Greater than 30
[2020-06-16] MEDS: FUROSEMIDE 40 MG TAB PO SCH (13:35)
[2020-06-16] MEDS: DILTIAZEM ORAL 30 MG TAB PO SCH ×2 (13:35→16:29)
[2020-06-16 13:52] LABS: Glucose,Whole Blood 408 mg/dL (75-99)
[2020-06-16 16:58] LABS: Glucose,Whole Blood 264 mg/dL (75-99)
[2020-06-16] MEDS: GABAPENTIN 300 MG CAP PO PRN (19:00)
[2020-06-16] MEDS: FORMOTEROL FUMARATE 20 MCG/2 ML NEBU INHALATION SCH (19:58)
[2020-06-16] MEDS: BUDESONIDE 1 MG/2 ML NEBU INHALATION SCH (19:58)
[2020-06-16] MEDS ORDERED: BUDESONIDE 0.5 MG/2 ML NEBU INHALATION SCH (20:00)
--- NOTE | 2020-06-16 20:23 | XR ---
EXAMINATION TYPE: XR abdomen 1V DATE OF EXAM: 06/16/2020 COMPARISON: NONE HISTORY: Abdominal pain TECHNIQUE: 2 views FINDINGS: There is large bowel gas down to the rectum. There is no evidence of free air. There is magen e apparent contrast in the gastric fundus. Lung bases are clear of consolidation. There is no sign of a mechanical type bowel obstruction. IMPRESSION: Large bowel gas suggestive of ileus. No free air.
[2020-06-16 21:00] LABS: Glucose,Whole Blood 146 mg/dL (75-99)
[2020-06-17] MEDS: APIXABAN 5 MG TAB PO SCH ×3 (01:27→20:14)
[2020-06-17] MEDS: ATORVASTATIN 20 MG TAB PO SCH ×2 (01:27→20:14)
[2020-06-17] MEDS: METOPROLOL TARTRATE 50 MG TAB PO SCH ×3 (01:28→20:14)
[2020-06-17] MEDS: DILTIAZEM ORAL 30 MG TAB PO SCH ×4 (01:28→21:29)
[2020-06-17 04:29] LABS: Glucose,Whole Blood 272 mg/dL (75-99)
[2020-06-17] MEDS: INSULIN ASPART (NovoLOG) 100 UNIT/ML VIAL SQ SCH ×8 (04:34→21:29)
[2020-06-17] MEDS: INSULIN DETEMIR (LEVEMIR) 100 UNIT/ML SYR SQ SCH ×3 (06:10→21:30)
[2020-06-17 06:18] LABS: Glucose,Whole Blood 300 mg/dL (75-99)
[2020-06-17] MEDS: BUDESONIDE 1 MG/2 ML NEBU INHALATION SCH ×2 (07:19→19:46)
[2020-06-17] MEDS: FORMOTEROL FUMARATE 20 MCG/2 ML NEBU INHALATION SCH ×2 (07:20→19:46)
[2020-06-17] MEDS: IPRATROPIUM-ALBUTEROL 3 ML NEB INHALATION PRN ×4 (07:20→19:46)
[2020-06-17] MEDS ORDERED: LACTULOSE 20 GM/30 ML CUP PO PRN (07:29)
[2020-06-17] MEDS ORDERED: predniSONE 20 MG TAB PO SCH (09:00)
[2020-06-17] MEDS ORDERED: predniSONE 10 MG TAB PO SCH (09:00)
--- NOTE | 2020-06-17 09:51 | P.PN ---
Subjective 79-year-old male came in to was department complains of shortness of breath the patient shortness of breath is much better now patient usually uses certainly this of oxygen patient was subsequently admitted for bradycardia patient is bit tachycardic patient does have history of atrial fibrillation. Patient does have a cough. had a CT angios the chest which showed patchy bilateral lower lobe infiltrates and some atelectasis without any significant day infiltrate with air bronchogram. Patient had does have bronchitis which are thick and. Patient denied any fever chills patient doesn't have any leukocytosis. 06/17/2020 Patient has been coughing a lot. Patient is being treated for from bronchopneumonia severe bronchitis. Patient was pretty status improved presently on 2 L of oxygen. blood sugars are bit high be secondary to systemic steroids increase the dose of insulin which may mean need to cut down upon discharge. Patient is constipated abdominal x-ray showed significant dilatation of the bowel loops although patient is not nauseous because of which patient will be started on clear liquid diet. Patient had a small bowel movement predominantly diarrhea patient will be started on lactulose for constipation. Physical therapy and occupational therapy will be consulted patient may need placement in subacute rehabilitation Constitutional: Denied any fatigue denied any fever. Cardio vascular: denied any chest pain, palpitations Gastrointestinal denied any nausea vomiting Pulmonary: As mentioned in HPI Neurologic denied any new focal deficits All inpatient medications were reviewed and appropriate changes in these medications as dictated in the interval history and assessment and plan. Objective - Vital Signs Vital signs: Vital Signs Temp 97.9 F 06/16/20 20:00 Pulse 86 06/17/20 07:20 Resp 18 06/17/20 04:00 BP 137/74 06/17/20 04:00 Pulse Ox 95 06/17/20 04:00 Intake & Output 06/16/20 06/17/20 06/17/20 18:59 06:59 18:59 Intake Total 436 Output Total 560 Balance -124 Weight 77.5 kg Intake: Oral 436 Output: Urine 560 Other: Voiding Method Incontinent Incontinent # Voids 3 1 # Bowel Movements 1 1 - Exam PHYSICAL EXAMINATION: GENERAL: The patient is alert and oriented x3, not in any acute distress. Well developed, well nourished. HEENT: Pupils are round and equally reacting to light. EOMI. No scleral icterus. No conjunctival pallor. Normocephalic, atraumatic. No pharyngeal erythema. No thyromegaly. CARDIOVASCULAR: S1 and S2 present. No murmurs, rubs, or gallops. PULMONARY: Mildly decreased air entry into bilateral lung madrigal. ABDOMEN: Soft, nontender, nondistended, normoactive bowel sounds. No palpable organomegaly. MUSCULOSKELETAL: No joint swelling or deformity. EXTREMITIES: No cyanosis, clubbing, or pedal edema. NEUROLOGICAL: Gross neurological examination did not reveal any focal deficits. SKIN: No rashes. - Labs CBC & Chem 7: 06/15/20 17:57 06/15/20 17:57 Labs: Abnormal Lab Results - Last 24 Hours (Table) 06/16/20 06/16/20 06/16/20 Range/Units 11:33 13:41 16:57 POC Glucose (mg/dL) 428 H 408 H 264 H (75-99) mg/dL 06/16/20 06/17/20 06/17/20 Range/Units 20:31 04:26 06:08 POC Glucose (mg/dL) 146 H 272 H 300 H (75-99) mg/dL Microbiology - Last 24 Hours (Table) 06/15/20 17:57 Blood Culture - Preliminary Blood No Growth after 24 hours Assessment and Plan Plan: Shortness of breath: Possible etiology being the bronchitis with possible bronchopneumonia patient was started on Rocephin no evidence of covid 19. Patient may have some restrictive lung disease from his of pasty may have sleep apnea as well. I from chronic hypoxic respiratory failure uses 2 L of onset at home unsure of the etiology of his chronic hypoxic respiratory failure, possibility of COPD. patient has improvement in his respiratory status presently on 2 L of breath and which he uses at home. -Atrial fibrillation: Chronic A. fib presently rate controlled patient was resumed on his home regimen patient was initially bradycardic when he came to ER patient has normal ejection fraction, cardiology evaluated the patient. -Constipation: Management as mentioned above patient will be given lactulose for constipation Type 2 diabetes mellitus uncontrolled elevated blood sugars secondary to systemic steroids will continue with the present regimen expected to improve as we cut down the steroids significantly -Hyperlipidemia -CVA/TIA in the past GI prophylaxis with Pepcid
[2020-06-17 10:39] LABS: Glucose,Whole Blood 256 mg/dL (75-99)
[2020-06-17] MEDS: BENZONATATE 100 MG CAP PO PRN (10:39)
[2020-06-17] MEDS: TAMSULOSIN 0.4 MG CAP.ER.24H PO SCH (10:39)
[2020-06-17] MEDS: traMADol 50 MG TAB PO PRN (10:39)
[2020-06-17] MEDS: FUROSEMIDE 40 MG TAB PO SCH (10:39)
[2020-06-17] MEDS: predniSONE 10 MG TAB PO SCH (10:39)
[2020-06-17] MEDS: GABAPENTIN 300 MG CAP PO PRN (10:40)
[2020-06-17] MEDS: guaiFENesin 600 MG TABLET.ER PO SCH ×2 (10:42→20:14)
[2020-06-17] MEDS: guaiFENesin-DM 100-10MG/5ML 10 ML CUP PO PRN ×2 (10:57→17:23)
--- NOTE | 2020-06-17 12:01 | P.PN ---
Subjective Progress Note Date: 06/17/20 79-year-old male, seen in the emergency department, 06/15/2020. Apparently, the patient came into the emergency department, because of difficulty in breathing. Apparently the patient was a bit lethargic and difficult to arouse and the patient was placed on BiPAP and given some breathing treatments. Subsequent to that, the patient became much more alert and oriented. The patient himself is a very poor historian according to the ER physician and I certainly agree with that. Some the issue is related to his accident, as the patient apparently is from [facility]. I had a very difficult time understanding him today. He did not really give a cogent history. His chest x-ray showed some mild abnormalities but his CAT scan suggested the possibility of some basilar atelectasis or even bronchopneumonia. He does have a wet congested cough and probably could produce his sputum. Currently, he is on 5 L nasal cannula, with saturations of 95%. Heart rate 75, respiratory rate 18, and blood pressure 118/69. He has been afebrile. Labs reveal a white count of 7.8, hemoglobin 11.5, hematocrit 38.1, a nd a platelet count of 259,000. Initial blood gases showed a pO2 of 63, pCO2 46, pH is 7.43. That was on 45% oxygen. Sodium 139, potassium 5.1, chloride 97, CO2 31, anion gap 11, BUN 15, and creatinine 0.89. COVID 19 testing was negative. The patient is seen today 06/17/2020 in follow-up on the selective care unit. He is awake and alert in no acute distress. Currently resting comfortably in bed. Maintaining O2 saturations in the 90s on 3 L/m per nasal cannula. He does have a ongoing cough and is currently dry nonproductive. He's been afebrile. Pro calcitonin 0.08. He remains on DuoNeb inhalations, Pulmicort and Perforomist inhalations, prednisone. He remains on Tessalon Perles and Robitussin. Antibiotics in the form of ceftriaxone. Anticoagulated with Eliquis. Abdominal x-ray yesterday revealed large bowel gas pattern suggestive of ileus. He has had complaints of constipation. Objective - Vital Signs Vital signs: Vital Signs Temp 97.9 F 06/16/20 20:00 Pulse 86 06/17/20 11:21 Resp 18 06/17/20 04:00 BP 137/74 06/17/20 04:00 Pulse Ox 95 06/17/20 04:00 Intake & Output 06/16/20 06/17/20 06/17/20 18:59 06:59 18:59 Intake Total 436 Output Total 560 Balance -124 Weight 77.5 kg Intake: Oral 436 Output: Urine 560 Other: Voiding Method Incontinent Incontinent # Voids 3 1 # Bowel Movements 1 1 - Exam GENERAL EXAM: Alert, pleasant 79-year-old gentleman, on 3 L nasal cannula, comfortable in no apparent distress. HEAD: Normocephalic. EYES: Normal reaction of pupils, equal size. NOSE: Clear with pink turbinates. THROAT: No erythema or exudates. NECK: No masses, no JVD. CHEST: No chest wall deformity. LUNGS: Equal air entry with few scattered rhonchi. CVS: S1 and S2 normal with no audible murmur, regular rhythm. ABDOMEN: No hepatosplenomegaly, normal bowel sounds, no guarding or rigidity. SPINE: No scoliosis or deformity SKIN: No rashes CENTRAL NERVOUS SYSTEM: No focal deficits, tone is normal in all 4 extremities. EXTREMITIES: There is no peripheral edema. No clubbing, no cyanosis. Peripheral pulses are intact. - Labs CBC & Chem 7: 06/15/20 17:57 06/15/20 17:57 Labs: Abnormal Lab Results - Last 24 Hours (Table) 06/16/20 06/16/20 06/16/20 Range/Units 13:41 16:57 20:31 POC Glucose (mg/dL) 408 H 264 H 146 H (75-99) mg/dL 06/17/20 06/17/20 06/17/20 Range/Units 04:26 06:08 10:37 POC Glucose (mg/dL) 272 H 300 H 256 H (75-99) mg/dL Microbiology - Last 24 Hours (Table) 06/15/20 17:57 Blood Culture - Preliminary Blood No Growth after 24 hours Assessment and Plan Assessment: Acute on chronic hypoxic respiratory failure, likely secondary to acute purulent tracheobronchitis, pro-calcitonin 0.08. History of atrial fibrillation. History of heart failure. History of CVA, with residual left-sided weakness. History of diabetes mellitus. History of essential hypertension. History of hyperlipidemia. Lifelong nonsmoker. Plan: The patient was seen and evaluated by Dr. Cipriano Babcockex Continue the current treatment plan We will continue to follow I, the cosigning physician, performed a history & physical examination of the patient. Lungs sounds with few scattered rhonchi. Maintaining good O2 saturations in the 90s on 3 L/m per nasal cannula. I discussed the assessment and plan of care with my nurse practitioner, Hazel Hand. I attest to the above note as dictated by her.
[2020-06-17 13:27] LABS: Glucose,Whole Blood 270 mg/dL (75-99)
[2020-06-17 16:57] LABS: Glucose,Whole Blood 61 mg/dL (75-99)
[2020-06-17 17:17] LABS: Glucose,Whole Blood 73 mg/dL (75-99)
[2020-06-17 19:58] LABS: Glucose,Whole Blood 152 mg/dL (75-99)
[2020-06-18 07:15] LABS: Glucose,Whole Blood 99 mg/dL (75-99)
[2020-06-18] MEDS: BUDESONIDE 1 MG/2 ML NEBU INHALATION SCH ×2 (07:52→19:52)
[2020-06-18] MEDS: IPRATROPIUM-ALBUTEROL 3 ML NEB INHALATION PRN ×3 (07:52→19:52)
[2020-06-18] MEDS: FORMOTEROL FUMARATE 20 MCG/2 ML NEBU INHALATION SCH ×2 (08:14→20:20)
[2020-06-18] MEDS: INSULIN DETEMIR (LEVEMIR) 100 UNIT/ML SYR SQ SCH ×2 (08:25→21:13)
[2020-06-18] MEDS: guaiFENesin 600 MG TABLET.ER PO SCH ×2 (08:25→21:39)
[2020-06-18] MEDS: TAMSULOSIN 0.4 MG CAP.ER.24H PO SCH (08:25)
[2020-06-18] MEDS: FUROSEMIDE 40 MG TAB PO SCH (08:25)
[2020-06-18] MEDS: APIXABAN 5 MG TAB PO SCH ×2 (08:25→21:39)
[2020-06-18] MEDS: METOPROLOL TARTRATE 50 MG TAB PO SCH ×2 (08:25→21:39)
[2020-06-18] MEDS: INSULIN ASPART (NovoLOG) 100 UNIT/ML VIAL SQ SCH ×7 (08:26→21:12)
[2020-06-18 08:38] LABS: Calcium 9.3 mg/dL (8.4-10.2); Potassium 3.4 mmol/L (3.5-5.1)
[2020-06-18] MEDS: DILTIAZEM ORAL 30 MG TAB PO SCH ×3 (09:19→22:16)
[2020-06-18] MEDS: predniSONE 10 MG TAB PO SCH (09:19)
[2020-06-18] MEDS: guaiFENesin-DM 100-10MG/5ML 10 ML CUP PO PRN ×2 (09:56→22:17)
[2020-06-18 11:06] LABS: Glucose,Whole Blood 109 mg/dL (75-99)
[2020-06-18] MEDS ORDERED: POTASSIUM CHLORIDE ER 20 MEQ TAB.ER PO STA (11:50)
--- NOTE | 2020-06-18 11:57 | P.PN ---
Subjective Progress Note Date: 06/18/20 79-year-old male, seen in the emergency department, 06/15/2020. Apparently, the patient came into the emergency department, because of difficulty in breathing. Apparently the patient was a bit lethargic and difficult to arouse and the patient was placed on BiPAP and given some breathing treatments. Subsequent to that, the patient became much more alert and oriented. The patient himself is a very poor historian according to the ER physician and I certainly agree with that. Some the issue is related to his accident, as the patient apparently is from [facility]. I had a very difficult time understanding him today. He did not really give a cogent history. His chest x-ray showed some mild abnormalities but his CAT scan suggested the possibility of some basilar atelectasis or even bronchopneumonia. He does have a wet congested cough and probably could produce his sputum. Currently, he is on 5 L nasal cannula, with saturations of 95%. Heart rate 75, respiratory rate 18, and blood pressure 118/69. He has been afebrile. Labs reveal a white count of 7.8, hemoglobin 11.5, hematocrit 38.1, and a platelet count of 259,000. Initial blood gases showed a pO2 of 63, pCO2 46, pH is 7.43. That was on 45% oxygen. Sodium 139, potassium 5.1, chloride 97, CO2 31, anion gap 11, BUN 15, and creatinine 0.89. COVID 19 testing was negative. The patient is seen today 06/17/2020 in follow-up on the selective care unit. He is awake and alert in no acute distress. Currently resting comfortably in b ed. Maintaining O2 saturations in the 90s on 3 L/m per nasal cannula. He does have a ongoing cough and is currently dry nonproductive. He's been afebrile. Pro calcitonin 0.08. He remains on DuoNeb inhalations, Pulmicort and Perforomist inhalations, prednisone. He remains on Tessalon Perles and Robitussin. Antibiotics in the form of ceftriaxone. Anticoagulated with Eliquis. Abdominal x-ray yesterday revealed large bowel gas pattern suggestive of ileus. He has had complaints of constipation. On 06/18/2020 patient seen in follow-up on medical floor, he is resting comfortably in bed, still has mild to moderate conversational dyspnea, but appears to be in no acute distress, he is talking on arrival, denies any chest pain, his vital signs have been stable, he tested negative for coronavirus. He remains on oral prednisone, 20 mg daily, he is on daily dose of Lasix, empiric antibiotics, in the form of Rocephin, his been afebrile, his pro-calcitonin level came back negative at 0.08. No altered mentation Objective - Vital Signs Vital signs: Vital Signs Temp 97.6 F 06/18/20 07:24 Pulse 89 06/18/20 11:47 Resp 22 06/18/20 07:24 BP 155/83 06/18/20 07:24 Pulse Ox 96 06/18/20 07:24 Intake & Output 06/17/20 06/18/20 06/18/20 18:59 06:59 18:59 Intake Total 800 10 Output Total 1 100 Balance 799 -90 Weight 77 kg Intake: IV 10 0.9 10 Oral 800 Output: Urine 100 Stool 1 Other: Voiding Method Toilet Urinal # Voids 1 2 # Bowel Movements 1 - Exam GENERAL EXAM: Alert, very pleasant, 79-year-old white female, with mild to moderate conversational dyspnea, but no acute distress comfortable in no apparent distress. HEAD: Normocephalic/atraumatic. EYES: Normal reaction of pupils, equal size. Conjunctiva pink, sclera white. NOSE: Clear with pink turbinates. THROAT: No erythema or exudates. NECK: No masses, no JVD, no thyroid enlargement, no adenopathy. CHEST: No chest wall deformity. Symmetrical expansion. LUNGS: Equal air entry with no crackles, wheeze, rhonchi or dullness. CVS: Regular rate and rhythm, normal S1 and S2, no gallops, no murmurs, no rubs ABDOMEN: Soft, nontender. No hepatosplenomegaly, normal bowel sounds, no guarding or rigidity. EXTREMITIES: No clubbing,1+ edema, no cyanosis, 2+ pulses and upper and lower extremities. MUSCULOSKELETAL: Muscle strength and tone normal. SPINE: No scoliosis or deformity SKIN: No rashes CENTRAL NERVOUS SYSTEM: Alert and oriented -3. No focal deficits, tone is normal in all 4 extremities. PSYCHIATRIC: Alert and oriented -3. Appropriate affect. Intact judgment and insight. - Labs CBC & Chem 7: 06/15/20 17:57 06/18/20 08:01 Labs: Abnormal Lab Results - Last 24 Hours (Table) 06/17/20 06/17/20 06/17/20 Range/Units 13:24 16:54 17:13 Potassium (3.5-5.1) mmol/L Chloride (98-107) mmol/L Carbon Dioxide (22-30) mmol/L BUN (9-20) mg/dL POC Glucose (mg/dL) 270 H 61 L 73 L (75-99) mg/dL 06/17/20 06/18/20 06/18/20 Range/Units 19:57 08:01 11:04 Potassium 3.4 L (3.5-5.1) mmol/L Chloride 97 L (98-107) mmol/L Carbon Dioxide 37 H (22-30) mmol/L BUN 31 H (9-20) mg/dL POC Glucose (mg/dL) 152 H 109 H (75-99) mg/dL Microbiology - Last 24 Hours (Table) 06/15/20 17:57 Blood Culture - Preliminary Blood No Growth after 48 hours Assessment and Plan Plan: Assessment: Acute on chronic hypoxic respiratory failure, likely secondary to acute purulent tracheobronchitis, pro-calcitonin 0.08. History of atrial fibrillation. History of heart failure. History of CVA, with residual left-sided weakness. History of diabetes mellitus. History of essential hypertension. History of hyperlipidemia. Lifelong nonsmoker. Plan: Continue current medical treatment, continue prednisone, diuretics per cardiology service, vital signs have been stable, continue Mucinex, continue deep breathing and coughing, no acute events overnight, we'll continue to follow I performed a history & physical examination of the patient and discussed their management with my nurse practitioner, Cassy Andino. I reviewed the nurse practitioner's note and agree with the documented findings and plan of care. Lung sounds are positive for diminished breath sounds. The findings and the impression was discussed with the patient. I attest to the documentation by the nurse practitioner. Time with Patient: Less than 30
[2020-06-18 17:12] LABS: Glucose,Whole Blood 74 mg/dL (75-99)
[2020-06-18] MEDS: ACETAMINOPHEN TAB 325 MG TAB PO PRN (19:44)
[2020-06-18 21:04] LABS: Glucose,Whole Blood 119 mg/dL (75-99)
[2020-06-18] MEDS: BENZONATATE 100 MG CAP PO PRN (21:40)
[2020-06-18] MEDS: ATORVASTATIN 20 MG TAB PO SCH (21:40)
[2020-06-18] MEDS: GABAPENTIN 300 MG CAP PO PRN (21:40)
[2020-06-19 07:35] LABS: Glucose,Whole Blood 168 mg/dL (75-99)
[2020-06-19] MEDS: INSULIN ASPART (NovoLOG) 100 UNIT/ML VIAL SQ SCH ×7 (08:13→20:40)
[2020-06-19] MEDS: predniSONE 10 MG TAB PO SCH (08:19)
[2020-06-19] MEDS: guaiFENesin 600 MG TABLET.ER PO SCH ×2 (08:19→20:41)
[2020-06-19] MEDS: FUROSEMIDE 40 MG TAB PO SCH (08:20)
[2020-06-19] MEDS: DILTIAZEM ORAL 30 MG TAB PO SCH ×3 (08:20→21:58)
[2020-06-19] MEDS: APIXABAN 5 MG TAB PO SCH ×2 (08:20→20:41)
[2020-06-19] MEDS: METOPROLOL TARTRATE 50 MG TAB PO SCH ×2 (08:20→21:58)
[2020-06-19] MEDS: TAMSULOSIN 0.4 MG CAP.ER.24H PO SCH (08:20)
[2020-06-19] MEDS: IPRATROPIUM-ALBUTEROL 3 ML NEB INHALATION PRN ×4 (08:22→20:02)
[2020-06-19] MEDS: FORMOTEROL FUMARATE 20 MCG/2 ML NEBU INHALATION SCH ×2 (08:22→20:02)
[2020-06-19] MEDS: BUDESONIDE 1 MG/2 ML NEBU INHALATION SCH ×2 (08:22→20:02)
[2020-06-19 09:51] LABS: Glucose,Whole Blood 177 mg/dL (75-99)
[2020-06-19] MEDS: INSULIN DETEMIR (LEVEMIR) 100 UNIT/ML SYR SQ SCH ×2 (10:15→20:40)
[2020-06-19] MEDS: guaiFENesin-DM 100-10MG/5ML 10 ML CUP PO PRN (11:22)
[2020-06-19 12:28] LABS: Glucose,Whole Blood 379 mg/dL (75-99)
[2020-06-19] MEDS: ACETAMINOPHEN TAB 325 MG TAB PO PRN (13:43)
--- NOTE | 2020-06-19 13:53 | P.PN ---
Subjective Progress Note Date: 06/19/20 Principal diagnosis: Cough and shortness of breath. 79-year-old male, seen in the emergency department, 06/15/2020. Apparently, the patient came into the emergency department, because of difficulty in breathing. Apparently the patient was a bit lethargic and difficult to arouse and the patient was placed on BiPAP and given some breathing treatments. Subsequent to that, the patient became much more alert and oriented. The patient himself is a very poor historian according to the ER physician and I certainly agree with that. Some the issue is related to his accident, as the patient apparently is from [facility]. I had a very difficult time understanding him today. He did not really give a cogent history. His chest x-ray showed some mild abnormalities but his CAT scan suggested the possibility of some basilar atelectasis or even bronchopneumonia. He does have a wet congested cough and probably could produce his sputum. Currently, he is on 5 L nasal cannula, with saturations of 95%. Heart rate 75, respiratory rate 18, and blood pressure 118/69. He has been a febrile. Labs reveal a white count of 7.8, hemoglobin 11.5, hematocrit 38.1, and a platelet count of 259,000. Initial blood gases showed a pO2 of 63, pCO2 46, pH is 7.43. That was on 45% oxygen. Sodium 139, potassium 5.1, chloride 97, CO2 31, anion gap 11, BUN 15, and creatinine 0.89. COVID 19 testing was negative. The patient is seen today 06/17/2020 in follow-up on the selective care unit. He is awake and alert in no acute distress. Currently resting comfortably in bed. Maintaining O2 saturations in the 90s on 3 L/m per nasal cannula. He does have a ongoing cough and is currently dry nonproductive. He's been afebrile. Pro calcitonin 0.08. He remains on DuoNeb inhalations, Pulmicort and Perforomist inhalations, prednisone. He remains on Tessalon Perles and Robitussin. Antibio tics in the form of ceftriaxone. Anticoagulated with Eliquis. Abdominal x-ray yesterday revealed large bowel gas pattern suggestive of ileus. He has had complaints of constipation. Progress note dated 06/19/2020. 79-year-old male initially seen in the emergency department on 06/15/2020. He came into the hospital with complaints of difficulty breathing. The patient is feeling better. Still coughing a bit. Producing some phlegm not a lot. Overall, his breathing is improved. When we initially saw him, we gave him a diagnosis of acute on chronic hypoxemic respiratory failure, likely secondary to purulent tracheobronchitis, without rafael pneumonia. His Pro calcitonin level was low at 0.08. In addition, the patient has a history of atrial fibrillation, CHF, CVA with residual left-sided weakness, diabetes mellitus, essential hypertension, hyperlipidemia, and lifelong nontobacco user. Currently, he is on O2 at 2 L/m. No additional blood work today. Objective - Vital Signs Vital signs: Vital Signs Temp 97.5 F L 06/19/20 05:00 Pulse 80 06/19/20 12:25 Resp 16 06/19/20 05:00 BP 148/86 06/19/20 05:00 Pulse Ox 93 L 06/19/20 05:00 Intake & Output 06/18/20 06/19/20 06/19/20 18:59 06:59 18:59 Intake Total 830 Output Total 400 901 500 Balance -400 -71 -500 Weight 79.3 kg Intake: Oral 830 Output: Urine 400 900 500 Stool 1 Other: Voiding Method Urinal Urinal # Voids 1 2 - Exam GENERAL EXAM: Alert, pleasant 79-year-old gentleman, on 2 L nasal cannula, comfortable in no apparent distress. HEAD: Normocephalic. EYES: Normal reaction of pupils, equal size. NOSE: Clear with pink turbinates. THROAT: No erythema or exudates. NECK: No masses, no JVD. CHEST: No chest wall deformity. LUNGS: Equal air entry with few scattered rhonchi. CVS: S1 and S2 normal with no audible murmur, regular rhythm. Heart sounds are distant and heart rate is 80 bpm. ABDOMEN: No hepatosplenomegaly, normal bowel sounds, no guarding or rigidity. SPINE: No scoliosis or deformity SKIN: No rashes CENTRAL NERVOUS SYSTEM: No focal deficits, tone is normal in all 4 extremities. EXTREMITIES: There is no peripheral edema. No clubbing, no cyanosis. Peripheral pulses are intact. - Labs CBC & Chem 7: 06/15/20 17:57 06/18/20 08:01 Labs: Abnormal Lab Results - Last 24 Hours (Table) 06/18/20 06/18/20 06/19/20 Range/Units 17:10 20:59 07:31 POC Glucose (mg/dL) 74 L 119 H 168 H (75-99) mg/dL 06/19/20 06/19/20 Range/Units 09:49 12:26 POC Glucose (mg/dL) 177 H 379 H (75-99) mg/dL Microbiology - Last 24 Hours (Table) 06/15/20 17:57 Blood Culture - Preliminary Blood No Growth after 72 hours Assessment and Plan Assessment: Shortness of breath, likely secondary to acute purulent tracheobronchitis without obvious bronchopneumonia. History of atrial fibrillation. History of heart failure. History of CVA, with residual left-sided weakness. History of diabetes mellitus. History of essential hypertension. History of hyperlipidemia. Lifelong nonsmoker. Plan: Plan dated 06/16/2020. The patient is likely suffering from a respiratory infection, either bronchitis or pneumonia. The patient tells me he is a lifelong nonsmoker. Currently, the patient is on Pulmicort, 0.5 mg twice a day, duonebs, and antibiotics. We will add some formoterol to his regimen and increase the Pulmicort up to 1 mg. We do recommend the administration of antibiotics. I will order a pro-calcitonin level. Additional recommendations and suggestions are forthcoming. We will continue to follow along and make additional recommendations where appropriate. Plan dated 06/19/2020. Currently, the patient is doing very well. His biggest complaint is cough. I told him that was good because we wanted him to cough up any phlegm in his chest. Currently, the patient's only on 2 L. No additional blood work was done. The patient could be considered for discharge in the next 24-48 hours. Overall prognosis is good. We'll continue to follow. No additional recommendations or suggestions are made at this time. Time with Patient: Less than 30
[2020-06-19 17:42] LABS: Glucose,Whole Blood 324 mg/dL (75-99)
[2020-06-19 20:30] LABS: Glucose,Whole Blood 334 mg/dL (75-99)
[2020-06-19] MEDS: traMADol 50 MG TAB PO PRN (20:41)
[2020-06-19] MEDS: ATORVASTATIN 20 MG TAB PO SCH (20:41)
[2020-06-20 07:39] LABS: Glucose,Whole Blood 54 mg/dL (75-99)
[2020-06-20 08:01] LABS: Glucose,Whole Blood 60 mg/dL (75-99)
[2020-06-20 08:21] LABS: Glucose,Whole Blood 66 mg/dL (75-99)
[2020-06-20 08:34] LABS: Glucose,Whole Blood 74 mg/dL (75-99)
[2020-06-20] MEDS: IPRATROPIUM-ALBUTEROL 3 ML NEB INHALATION PRN ×2 (09:00→12:23)
[2020-06-20] MEDS: FORMOTEROL FUMARATE 20 MCG/2 ML NEBU INHALATION SCH (09:00)
[2020-06-20] MEDS: BUDESONIDE 1 MG/2 ML NEBU INHALATION SCH (09:00)
[2020-06-20] MEDS: INSULIN ASPART (NovoLOG) 100 UNIT/ML VIAL SQ SCH ×7 (09:55→20:45)
[2020-06-20] MEDS: guaiFENesin 600 MG TABLET.ER PO SCH ×2 (09:59→20:59)
[2020-06-20] MEDS: predniSONE 10 MG TAB PO SCH (09:59)
[2020-06-20] MEDS: METOPROLOL TARTRATE 50 MG TAB PO SCH ×2 (09:59→20:59)
[2020-06-20] MEDS: TAMSULOSIN 0.4 MG CAP.ER.24H PO SCH (09:59)
[2020-06-20] MEDS: FUROSEMIDE 40 MG TAB PO SCH (09:59)
[2020-06-20] MEDS: DILTIAZEM ORAL 30 MG TAB PO SCH ×3 (09:59→21:14)
[2020-06-20] MEDS: APIXABAN 5 MG TAB PO SCH ×2 (09:59→20:59)
--- NOTE | 2020-06-20 10:17 | P.PN ---
Subjective Progress Note Date: 06/19/20 Principal diagnosis: Acute exacerbation COPD Severe acute tracheobronchitis 79-year-old male patient presented to ED with complaint of difficulty breathing; patient is admitted to the hospital with acute exacerbation COPD with possible bronchopneumonia; pulmonary service is following 06/19/2020 Patient is seen and evaluated in room at bedside; reports continued cough but overall feeling better; patient is currently on O2 2 L per nasal cannula Patient remains on IV antibiotics in form of Rocephin for severe tracheobronchitis; continue with Pulmicort inhaler twice a day, Perforomist inhalation twice a day; prednisone is switched to oral 20 mg daily; continue with DuoNeb nebulizer treatments as needed; pulmonary recommending to continue with current treatment for another 24-48 hours; discharge planning pending clinical course Objective - Vital Signs Vital signs: Vital Signs Temp 97.5 F L 06/19/20 05:00 Pulse 80 06/19/20 12:25 Resp 16 06/19/20 05:00 BP 148/86 06/19/20 05:00 Pulse Ox 93 L 06/19/20 05:00 Intake & Output 06/18/20 06/19/20 06/19/20 18:59 06:59 18:59 Intake Total 830 Output Total 400 901 500 Balance -400 -71 -500 Weight 79.3 kg Intake: Oral 830 Output: Urine 400 900 500 Stool 1 Other: Voiding Method Urinal Urinal # Voids 1 2 - Exam - Constitutional General appearance: Present: average body habitus, cooperative, no acute distress - EENT Eyes: Present: anicteric sclerae, EOMI, PERRLA, normal appearance ENT: Present: hearing grossly normal, normal oropharynx Ears: bilateral: normal - Neck Neck: Present: normal ROM. Absent: lymphadenopathy, rigidity, thyromegaly Carotids: negative: bruit present Thyroid: bilateral: normal size, negative: enlarged, nodule - Respiratory Respiratory: bilateral: CTA, negative: rales, rhonchi, wheezing - Cardiovascular Rhythm: regular Heart sounds: normal: S1, S2 Abnormal Heart Sounds: Absent: systolic murmur, diastolic murmur - Gastrointestinal General gastrointestinal: Present: normal bowel sounds, soft. Absent: distended, organomegaly, tenderness - Genitourinary Genitourinary Comment(s): deferred - Integumentary Integumentary: Present: normal turgor. Absent: jaundiced, rash, ulcer - Neurologic Neurologic: Present: CNII-XII intact. Absent: focal deficits - Musculoskeletal Musculoskeletal: Present: gait normal, strength equal bilaterally - Psychiatric Psychiatric: Present: A&O x's 3, appropriate affect, intact judgment & insight - Labs CBC & Chem 7: 06/15/20 17:57 06/18/20 08:01 Labs: Abnormal Lab Results - Last 24 Hours (Table) 06/18/20 06/18/20 06/19/20 Range/Units 17:10 20:59 07:31 POC Glucose (mg/dL) 74 L 119 H 168 H (75-99) mg/dL 06/19/20 06/19/20 Range/Units 09:49 12:26 POC Glucose (mg/dL) 177 H 379 H (75-99) mg/dL Microbiology - Last 24 Hours (Table) 06/15/20 17:57 Blood Culture - Preliminary Blood No Growth after 72 hours Assessment and Plan Assessment: 1. Acute on chronic hypoxic respiratory failure/acute purulent tracheobronchitis - IV antibiotics in form of Rocephin; continue with bronchodilator and steroid therapy in form of Perforomist, Pulmicort inhaler, DuoNeb nebulizer treatments when necessary; continue with prednisone - O2 per nasal cannula with plan to keep SpO2 greater than 90% 2. History of CHF 3. Atrial fibrillation; rate controlled on Cardizem 30 mg 3 times a day and metoprolol 100 mg twice a day; continue with anticoagulation with Eliquis 5 mg twice a day 4. Diabetes mellitus; currently on Levemir 40 mg subcu twice a day along with Humalog 17 units subcu every before meals; monitor Accu-Cheks every before meals and at bedtime with insulin sliding scale 5. Hypertension; stable on metoprolol, Cardizem and Lasix 6. Hyperlipidemia; Lipitor 20 g by mouth daily at bedtime DVT prophylaxis; SCDs CODE STATUS; full code
--- NOTE | 2020-06-20 10:18 | P.PN ---
Subjective Progress Note Date: 06/18/20 Principal diagnosis: Acute exacerbation COPD Severe acute tracheobronchitis 79-year-old male patient presented to ED with complaint of difficulty breathing; patient is admitted to the hospital with acute exacerbation COPD with possible bronchopneumonia; pulmonary service is following 06/18/2020 Patient is seen and evaluates at bedside in follow-up on medical floor, he is resting comfortably in bed, still has mild to moderate conversational dyspnea, but appears to be in no acute distress, he is talking on arrival, denies any chest pain, his vital signs have been stable, he tested negative for coronavirus. He remains on oral prednisone, 20 mg daily, he is on daily dose of Lasix, empiric antibiotics, in the form of Rocephin, his been afebrile, his pro- calcitonin level came back negative at 0.08. No altered mentation 06/19/2020 Patient is seen and evaluated in room at bedside; reports continued cough but overall feeling better; patient is currently on O2 2 L per nasal cannula Patient remains on IV antibiotics in form of Rocephin for severe tracheobronchitis; continue with Pulmicort inhaler twice a day, Perforomist inhalation twice a day; prednisone is switched to oral 20 mg daily; continue with DuoNeb nebulizer treatments as needed; pulmonary recommending to continue with current treatment for another 24-48 hours; discharge planning pending clinical course Objective - Vital Signs Vital signs: Vital Signs Temp 97.6 F 06/18/20 07:24 Pulse 89 06/18/20 11:47 Resp 22 06/18/20 07:24 BP 155/83 06/18/20 07:24 Pulse Ox 96 06/18/20 07:24 Intake & Output 06/17/20 06/18/20 06/18/20 18:59 06:59 18:59 Intake Total 800 10 Output Total 1 100 Balance 799 -90 Weight 77 kg Intake: IV 10 0.9 10 Oral 800 Output: Urine 100 Stool 1 Other: Voiding Method Toilet Urinal # Voids 1 2 # Bowel Movements 1 - Exam - Constitutional General appearance: Present: average body habitus, cooperative, no acute distress - EENT Eyes: Present: anicteric sclerae, EOMI, PERRLA, normal appearance ENT: Present: hearing grossly normal, normal oropharynx Ears: bilateral: normal - Neck Neck: Present: normal ROM. Absent: lymphadenopathy, rigidity, thyromegaly Carotids: negative: bruit present Thyroid: bilateral: normal size, negative: enlarged, nodule - Respiratory Respiratory: bilateral: CTA, negative: rales, rhonchi, wheezing - Cardiovascular Rhythm: regular Heart sounds: normal: S1, S2 Abnormal Heart Sounds: Absent: systolic murmur, diastolic murmur - Gastrointestinal General gastrointestinal: Present: normal bowel sounds, soft. Absent: distended, organomegaly, tenderness - Genitourinary Genitourinary Comment(s): deferred - Integumentary Integumentary: Present: normal turgor. Absent: jaundiced, rash, ulcer - Neurologic Neurologic: Present: CNII-XII intact. Absent: focal deficits - Musculoskeletal Musculoskeletal: Present: gait normal, strength equal bilaterally - Psychiatric Psychiatric: Present: A&O x's 3, appropriate affect, intact judgment & insight - Labs CBC & Chem 7: 06/15/20 17:57 06/18/20 08:01 Labs: Abnormal Lab Results - Last 24 Hours (Table) 06/17/20 06/17/20 06/17/20 Range/Units 13:24 16:54 17:13 Potassium (3.5-5.1) mmol/L Chloride (98-107) mmol/L Carbon Dioxide (22-30) mmol/L BUN (9-20) mg/dL POC Glucose (mg/dL) 270 H 61 L 73 L (75-99) mg/dL 06/17/20 06/18/20 06/18/20 Range/Units 19:57 08:01 11:04 Potassium 3.4 L (3.5-5.1) mmol/L Chloride 97 L (98-107) mmol/L Carbon Dioxide 37 H (22-30) mmol/L BUN 31 H (9-20) mg/dL POC Glucose (mg/dL) 152 H 109 H (75-99) mg/dL Microbiology - Last 24 Hours (Table) 06/15/20 17:57 Blood Culture - Preliminary Blood No Growth after 48 hours Assessment and Plan Assessment: 1. Acute on chronic hypoxic respiratory failure/acute purulent tracheobronchitis - IV antibiotics in form of Rocephin; continue with bronchodilator and steroid therapy in form of Perforomist, Pulmicort inhaler, DuoNeb nebulizer treatments when necessary; continue with prednisone - O2 per nasal cannula with plan to keep SpO2 greater than 90% 2. History of CHF 3. Atrial fibrillation; rate controlled on Cardizem 30 mg 3 times a day and m etoprolol 100 mg twice a day; continue with anticoagulation with Eliquis 5 mg twice a day 4. Diabetes mellitus; currently on Levemir 40 mg subcu twice a day along with Humalog 17 units subcu every before meals; monitor Accu-Cheks every before meals and at bedtime with insulin sliding scale 5. Hypertension; stable on metoprolol, Cardizem and Lasix 6. Hyperlipidemia; Lipitor 20 g by mouth daily at bedtime DVT prophylaxis; SCDs CODE STATUS; full code
[2020-06-20 11:20] LABS: Glucose,Whole Blood 100 mg/dL (75-99)
[2020-06-20] MEDS: INSULIN DETEMIR (LEVEMIR) 100 UNIT/ML SYR SQ SCH ×2 (11:27→20:47)
[2020-06-20] MEDS: ACETAMINOPHEN TAB 325 MG TAB PO PRN (13:05)
--- NOTE | 2020-06-20 13:37 | P.PN ---
Subjective Progress Note Date: 06/20/20 79-year-old male, seen in the emergency department, 06/15/2020. Apparently, the patient came into the emergency department, because of difficulty in breathing. Apparently the patient was a bit lethargic and difficult to arouse and the patient was placed on BiPAP and given some breathing treatments. Subsequent to that, the patient became much more alert and oriented. The patient himself is a very poor historian according to the ER physician and I certainly agree with that. Some the issue is related to his accident, as the patient apparently is from [facility]. I had a very difficult time understanding him today. He did not really give a cogent history. His chest x-ray showed some mild abnormalities but his CAT scan suggested the possibility of some basilar atelectasis or even bronchopneumonia. He does have a wet congested cough and probably could produce his sputum. Currently, he is on 5 L nasal cannula, with saturations of 95%. Heart rate 75, respiratory rate 18, and blood pressure 118/69. He has been afebrile. Labs reveal a white count of 7.8, hemoglobin 11.5, hematocrit 38.1, a nd a platelet count of 259,000. Initial blood gases showed a pO2 of 63, pCO2 46, pH is 7.43. That was on 45% oxygen. Sodium 139, potassium 5.1, chloride 97, CO2 31, anion gap 11, BUN 15, and creatinine 0.89. COVID 19 testing was negative. The patient is seen today 06/17/2020 in follow-up on the selective care unit. He is awake and alert in no acute distress. Currently resting comfortably in bed. Maintaining O2 saturations in the 90s on 3 L/m per nasal cannula. He does have a ongoing cough and is currently dry nonproductive. He's been afebrile. Pro calcitonin 0.08. He remains on DuoNeb inhalations, Pulmicort and Perforomist inhalations, prednisone. He remains on Tessalon Perles and Robitussin. Antibiotics in the form of ceftriaxone. Anticoagulated with Eliquis. Abdominal x-ray yesterday revealed large bowel gas pattern suggestive of ileus. He has had complaints of constipation. The patient is seen today 06/20/2020 in follow-up on the regular medical floor. He is currently sitting up in a chair at the bedside. Awake and alert in no acute distress. Maintaining O2 saturation the upper 90s on 2 L/m per nasal cannula. He is afebrile. Hemodynamically stable. Blood cultures reveal no growth. Blood glucose 100. He remains on DuoNeb inhalations, Pulmicort and Perforomist inhalations, prednisone. Antibiotics in the form of ceftriaxone. Anticoagulated with Eliquis. Objective - Vital Signs Vital signs: Vital Signs Temp 97.4 F L 06/20/20 05:10 Pulse 68 06/20/20 12:35 Resp 16 06/20/20 08:00 BP 138/79 06/20/20 05:10 Pulse Ox 98 06/20/20 05:10 Intake & Output 06/19/20 06/20/20 06/20/20 18:59 06:59 18:59 Intake Total 1100 Output Total 1401 276 Balance -301 -276 Weight 80 kg Intake: Oral 1100 Output: Urine 1400 275 Stool 1 1 Other: Voiding Method Urinal Urinal Urinal # Voids 3 4 1 # Bowel Movements 1 1 - Exam GENERAL EXAM: Alert, pleasant 79-year-old gentleman, on 2 L nasal cannula, comfortable in no apparent distress. HEAD: Normocephalic. EYES: Normal reaction of pupils, equal size. NOSE: Clear with pink turbinates. THROAT: No erythema or exudates. NECK: No masses, no JVD. CHEST: No chest wall deformity. LUNGS: Equal air entry with few scattered rhonchi. CVS: S1 and S2 normal with no audible murmur, regular rhythm. ABDOMEN: No hepatosplenomegaly, normal bowel sounds, no guarding or rigidity. SPINE: No scoliosis or deformity SKIN: No rashes CENTRAL NERVOUS SYSTEM: No focal deficits, tone is normal in all 4 extremities. EXTREMITIES: There is no peripheral edema. No clubbing, no cyanosis. Peripheral pulses are intact. - Labs CBC & Chem 7: 06/15/20 17:57 06/18/20 08:01 Labs: Abnormal Lab Results - Last 24 Hours (Table) 06/19/20 06/19/20 06/20/20 Range/Units 17:38 20:28 07:37 POC Glucose (mg/dL) 324 H 334 H 54 L (75-99) mg/dL 06/20/20 06/20/20 06/20/20 Range/Units 08:00 08:15 08:33 POC Glucose (mg/dL) 60 L 66 L 74 L (75-99) mg/dL 06/20/20 Range/Units 11:18 POC Glucose (mg/dL) 100 H (75-99) mg/dL Microbiology - Last 24 Hours (Table) 06/15/20 17:57 Blood Culture - Preliminary Blood No Growth after 96 hours Assessment and Plan Assessment: Acute on chronic hypoxic respiratory failure, likely secondary to acute purulent tracheobronchitis, pro-calcitonin 0.08. History of atrial fibrillation. History of heart failure. History of CVA, with residual left-sided weakness. History of diabetes mellitus. History of essential hypertension. History of hyperlipidemia. Lifelong nonsmoker. Plan: The patient was seen and evaluated by Dr. Cota Discontinue ceftriaxone Add Augmentin Change Pulmicort and Perforomist to Symbicort Continue prednisone taper Anticoagulated with Eliquis Home once cleared by medicine I, the cosigning physician, performed a history & physical examination of the patient. Lungs sounds with few scattered rhonchi. Maintaining good O2 saturations in the 90s on 2 L/m per nasal cannula. I discussed the assessment and plan of care with my nurse practitioner, Hazel Hand. I attest to the above note as dictated by her.
--- NOTE | 2020-06-20 14:17 | P.PN ---
Subjective Progress Note Date: 06/20/20 Principal diagnosis: Acute exacerbation COPD Severe acute tracheobronchitis 79-year-old male patient presented to ED with complaint of difficulty breathing; patient is admitted to the hospital with acute exacerbation COPD with possible bronchopneumonia; pulmonary service is following 06/18/2020 Patient is seen and evaluates at bedside in follow-up on medical floor, he is resting comfortably in bed, still has mild to moderate conversational dyspnea, but appears to be in no acute distress, he is talking on arrival, denies any chest pain, his vital signs have been stable, he tested negative for coronavirus. He remains on oral prednisone, 20 mg daily, he is on daily dose of Lasix, empiric antibiotics, in the form of Rocephin, his been afebrile, his pro- calcitonin level came back negative at 0.08. No altered mentation 06/19/2020 Patient is seen and evaluated in room at bedside; reports continued cough but overall feeling better; patient is currently on O2 2 L per nasal cannula Patient remains on IV antibiotics in form of Rocephin for severe tracheobronchitis; continue with Pulmicort inhaler twice a day, Perforomist inhalation twice a day; prednisone is switched to oral 20 mg daily; continue with DuoNeb nebulizer treatments as needed; pulmonary recommending to continue with current treatment for another 24-48 hours; discharge planning pending clinical course 06/20/2020 Patient is evaluated sitting up in bedside chair; discussed with nursing staff; patient had episode of vomiting with abdominal complaints with diet advancement; patient's exam does reveal abdominal distention and some tenderness Vital signs are reviewed and reveal a temperature of 97.4, pulse 68, respirations 16 and blood pressure 138/79; SpO2 in upper 90s on 20 L per nasal cannula We will order stat abdominal x-ray; change diet to clear liquids; further recommendations after Results are available Patient remains on DuoNeb inhalations, Pulmicort and Perforomist inhalations and oral prednisone; continue with antibiotic empiric treatment with ceftriaxone Objective - Vital Signs Vital signs: Vital Signs Temp 97.4 F L 06/20/20 05:10 Pulse 68 06/20/20 12:35 Resp 16 06/20/20 08:00 BP 129/77 06/20/20 12:30 Pulse Ox 98 06/20/20 05:10 Intake & Output 06/19/20 06/20/20 06/20/20 18:59 06:59 18:59 Intake Total 1100 360 Output Total 1401 276 Balance -301 84 Weight 80 kg Intake: Oral 1100 360 Output: Urine 1400 275 Stool 1 1 Other: Voiding Method Urinal Urinal Urinal # Voids 3 4 1 # Bowel Movements 1 1 - Exam - Constitutional General appearance: Present: average body habitus, cooperative, no acute distress - EENT Eyes: Present: anicteric sclerae, EOMI, PERRLA, normal appearance ENT: Present: hearing grossly normal, normal oropharynx Ears: bilateral: normal - Neck Neck: Present: normal ROM. Absent: lymphadenopathy, rigidity, thyromegaly Carotids: negative: bruit present Thyroid: bilateral: normal size, negative: enlarged, nodule - Respiratory Respiratory: bilateral: CTA, negative: rales, rhonchi, wheezing - Cardiovascular Rhythm: regular Heart sounds: normal: S1, S2 Abnormal Heart Sounds: Absent: systolic murmur, diastolic murmur - Gastrointestinal General gastrointestinal: Present: normal bowel sounds, soft. Absent: distended, organomegaly, tenderness - Genitourinary Genitourinary Comment(s): deferred - Integumentary Integumentary: Present: normal turgor. Absent: jaundiced, rash, ulcer - Neurologic Neurologic: Present: CNII-XII intact. Absent: focal deficits - Musculoskeletal Musculoskeletal: Present: gait normal, strength equal bilaterally - Psychiatric Psychiatric: Present: A&O x's 3, appropriate affect, intact judgment & insight - Labs CBC & Chem 7: 06/15/20 17:57 06/18/20 08:01 Labs: Abnormal Lab Results - Last 24 Hours (Table) 06/19/20 06/19/20 06/20/20 Range/Units 17:38 20:28 07:37 POC Glucose (mg/dL) 324 H 334 H 54 L (75-99) mg/dL 06/20/20 06/20/20 06/20/20 Range/Units 08:00 08:15 08:33 POC Glucose (mg/dL) 60 L 66 L 74 L (75-99) mg/dL 06/20/20 Range/Units 11:18 POC Glucose (mg/dL) 100 H (75-99) mg/dL Microbiology - Last 24 Hours (Table) 06/15/20 17:57 Blood Culture - Preliminary Blood No Growth after 96 hours Assessment and Plan Assessment: 1. Acute on chronic hypoxic respiratory failure/acute purulent tracheobronchitis - IV antibiotics in form of Rocephin; continue with bronchodilator and steroid therapy in form of Perforomist, Pulmicort inhaler, DuoNeb nebulizer treatments when necessary; continue with prednisone - O2 per nasal cannula with plan to keep SpO2 greater than 90% 2. History of CHF 3. Atrial fibrillation; rate controlled on Cardizem 30 mg 3 times a day and metoprolol 100 mg twice a day; continue with anticoagulation with Eliquis 5 mg twice a day 4. Diabetes mellitus; currently on Levemir 40 mg subcu twice a day along with Humalog 17 units subcu every before meals; monitor Accu-Cheks every before meals and at bedtime with insulin sliding scale 5. Hypertension; stable on metoprolol, Cardizem and Lasix 6. Hyperlipidemia; Lipitor 20 g by mouth daily at bedtime DVT prophylaxis; SCDs CODE STATUS; full code
--- NOTE | 2020-06-20 15:13 | XR ---
EXAMINATION TYPE: XR abdomen 2V DATE OF EXAM: 06/20/2020 COMPARISON: 06/16/2020 HISTORY: Abdominal distention TECHNIQUE: Supine and upright views FINDINGS: There is some mild atelectasis left lung base. There is no sign of intestinal obstruction o r pneumoperitoneum. There is gas down to the rectum. I see no evidence of abdominal mass. There is mo derate amount of large bowel gas that could be air swallowing. There is some contrast material in the rectum. IMPRESSION: No free air. Large bowel gas that could be air swallowing. No adverse change compared to old exam. Mild atelectasis left lung base unchanged.
[2020-06-20 16:42] LABS: Glucose,Whole Blood 131 mg/dL (75-99)
[2020-06-20] MEDS ORDERED: MAG HYDROX/AL HYDROX/SIMETH 30 ML CUP PO PRN (16:43)
[2020-06-20] MEDS: SIMETHICONE 80 MG CHEWABLE PO SCH ×2 (17:20→21:15)
[2020-06-20] MEDS: traMADol 50 MG TAB PO PRN (18:25)
[2020-06-20 20:05] LABS: Glucose,Whole Blood 145 mg/dL (75-99)
[2020-06-20] MEDS: SYMBICORT 160-4.5 MCG INHALER INHALATION SCH (20:26)
[2020-06-20] MEDS: ATORVASTATIN 20 MG TAB PO SCH (20:59)
[2020-06-20] MEDS: AMOXIC-POT CLAV 875-125MG 1 EACH TAB PO SCH (20:59)
[2020-06-21 07:08] LABS: Glucose,Whole Blood 138 mg/dL (75-99)
[2020-06-21] MEDS: SYMBICORT 160-4.5 MCG INHALER INHALATION SCH (07:49)
[2020-06-21] MEDS: INSULIN DETEMIR (LEVEMIR) 100 UNIT/ML SYR SQ SCH (08:09)
[2020-06-21] MEDS: guaiFENesin 600 MG TABLET.ER PO SCH (08:09)
[2020-06-21] MEDS: INSULIN ASPART (NovoLOG) 100 UNIT/ML VIAL SQ SCH ×4 (08:10→13:46)
[2020-06-21] MEDS: FUROSEMIDE 40 MG TAB PO SCH (08:11)
[2020-06-21] MEDS: APIXABAN 5 MG TAB PO SCH (08:11)
[2020-06-21] MEDS: TAMSULOSIN 0.4 MG CAP.ER.24H PO SCH (08:11)
[2020-06-21] MEDS: predniSONE 10 MG TAB PO SCH (08:11)
[2020-06-21] MEDS: METOPROLOL TARTRATE 50 MG TAB PO SCH (08:11)
[2020-06-21] MEDS: AMOXIC-POT CLAV 875-125MG 1 EACH TAB PO SCH (08:11)
[2020-06-21] MEDS: DILTIAZEM ORAL 30 MG TAB PO SCH (08:11)
[2020-06-21] MEDS: SIMETHICONE 80 MG CHEWABLE PO SCH (08:12)
[2020-06-21 09:06] LABS: Basophils # (A) 0.01 X 10*3/uL (0.00-0.10); Basophils % (A) 0.1 %; Eosinophils # (A) 0.01 X 10*3/uL (0.04-0.35); Eosinophils % (A) 0.1 %; HCT 40.1 % (39.6-50.0); HGB 11.9 g/dL (13.0-17.0); Lymphocytes % (A) 6.7 %; MCH 25.9 pg (27.0-32.0); MCHC 29.7 g/dL (32.0-37.0); MCV 87.4 fL (80.0-97.0); Mean Platelet Volume 10.2 fL (9.5-12.2); Monocytes # (A) 0.52 X 10*3/uL (0.20-1.00); Monocytes % (A) 5.8 %; Neutrophils # (A) 7.78 X 10*3/uL (1.80-7.70); Neutrophils % (A) 86.9 %; Platelet Count 383 X 10*3/uL (140-440); RBC 4.59 X 10*6/uL (4.40-5.60); RDW 19.8 % (11.5-14.5); WBC 8.96 X 10*3/uL (4.50-10.00)
[2020-06-21 09:11] LABS: African American GFR (CKD) 91.9 (60.0-200.0); Anion Gap 11.4 mmol/L (4.00-12.00); BUN/Creat Ratio 23.33 Ratio (12.00-20.00); Calcium 9.2 mg/dL (8.7-10.3); Carbon Dioxide 27.6 mmol/L (21.6-31.8); Non-African American GFR(CKD) 79.3 (60.0-200.0); Potassium 4.4 mmol/L (3.5-5.5)
[2020-06-21 11:16] LABS: Glucose,Whole Blood 126 mg/dL (75-99)
[2020-06-21 11:54] VITALS: BP 126/84; PULSE 71; RESP 17; TEMP 97.9
[2020-06-21] MEDS: ACETAMINOPHEN TAB 325 MG TAB PO PRN (12:35)
--- NOTE | 2020-06-21 12:41 | P.PN ---
Subjective Progress Note Date: 06/21/20 79-year-old male, seen in the emergency department, 06/15/2020. Apparently, the patient came into the emergency department, because of difficulty in breathing. Apparently the patient was a bit lethargic and difficult to arouse and the patient was placed on BiPAP and given some breathing treatments. Subsequent to that, the patient became much more alert and oriented. The patient himself is a very poor historian according to the ER physician and I certainly agree with that. Some the issue is related to his accident, as the patient apparently is from [facility]. I had a very difficult time understanding him today. He did not really give a cogent history. His chest x-ray showed some mild abnormalities but his CAT scan suggested the possibility of some basilar atelectasis or even bronchopneumonia. He does have a wet congested cough and probably could produce his sputum. Currently, he is on 5 L nasal cannula, with saturations of 95%. Heart rate 75, respiratory rate 18, and blood pressure 118/69. He has been afebrile. Labs reveal a white count of 7.8, hemoglobin 11.5, hematocrit 38.1, and a platelet count of 259,000. Initial blood gases showed a pO2 of 63, pCO2 46, pH is 7.43. That was on 45% oxygen. Sodium 139, potassium 5.1, chloride 97, CO2 31, anion gap 11, BUN 15, and creatinine 0.89. COVID 19 testing was negative. The patient is seen today 06/17/2020 in follow-up on the selective care unit. He is awake and alert in no acute distress. Currently resting comfortably in bed. Maintaining O2 saturations in the 90s on 3 L/m per nasal cannula. He does have a ongoing cough and is currently dry nonproductive. He's been afebrile. Pro calcitonin 0.08. He remains on DuoNeb inhalations, Pulmicort and Perforomist inhalations, prednisone. He remains on Tessalon Perles and Robitussin. Antibiotics in the form of ceftriaxone. Anticoagulated with Eliquis. Abdominal x-ray yesterday revealed large bowel gas pattern suggestive of ileus. He has had complaints of constipation. The patient is seen today 06/20/2020 in follow-up on the regular medical floor. He is currently sitting up in a chair at the bedside. Awake and alert in no acute distress. Maintaining O2 saturation the upper 90s on 2 L/m per nasal cannula. He is afebrile. Hemodynamically stable. Blood cultures reveal no growth. Blood glucose 100. He remains on DuoNeb inhalations, Pulmicort and Perforomist inhalations, prednisone. Antibiotics in the form of ceftriaxone. Anticoagulated with Eliquis. On 06/21/2020 I'm seeing the patient for a follow-up. Overall, is doing well. He is on oxygen at 2 L per minute nasal cannula. He is on DuoNeb neb last treatment [id number] in addition to a combination of Perforomist and Pulmicort updrafts. He is also on a prednisone burst taper his anticoagulated with Eliquis. He has previous history of CVA and left-sided hemiplegia. He lives with his daughter and the plan is to send him home today Objective - Vital Signs Vital signs: Vital Signs Temp 97.9 F 06/21/20 11:54 Pulse 71 06/21/20 11:54 Resp 17 06/21/20 11:54 BP 126/84 06/21/20 11:54 Pulse Ox 96 06/21/20 11:54 Intake & Output 06/20/20 06/21/20 06/21/20 18:59 06:59 18:59 Intake Total 810 Output Total 526 Balance 284 Weight 79 kg Intake: Oral 810 Output: Urine 525 Stool 1 Other: Voiding Method Urinal Urinal # Voids 3 3 # Bowel Movements 1 0 - Exam GENERAL EXAM: Alert, pleasant 79-year-old gentleman, on 2 L nasal cannula, comfortable in no apparent distress. HEAD: Normocephalic. EYES: Normal reaction of pupils, equal size. NOSE: Clear with pink turbinates. THROAT: No erythema or exudates. NECK: No masses, no JVD. CHEST: No chest wall deformity. LUNGS: Equal air entry with few scattered rhonchi. CVS: S1 and S2 normal with no audible murmur, regular rhythm. ABDOMEN: No hepatosplenomegaly, normal bowel sounds, no guarding or rigidity. SPINE: No scoliosis or deformity SKIN: No rashes CENTRAL NERVOUS SYSTEM: No focal deficits, tone is normal in all 4 extremities. EXTREMITIES: There is no peripheral edema. No clubbing, no cyanosis. Peripheral pulses are intact. - Labs CBC & Chem 7: 06/21/20 03:39 06/21/20 03:39 Labs: Abnormal Lab Results - Last 24 Hours (Table) 06/20/20 06/20/20 06/21/20 Range/Units 16:34 20:02 03:39 Hgb 11.9 L (13.0-17.0) g/dL MCH 25.9 L (27.0-32.0) pg MCHC 29.7 L (32.0-37.0) g/dL RDW 19.8 H (11.5-14.5) % Neutrophils # 7.78 H (1.80-7.70) X 10*3/uL Lymphocytes # 0.60 L (0.90-5.00) X 10*3/uL Eosinophils # 0.01 L (0.04-0.35) X 10*3/uL BUN/Creatinine Ratio (12.00-20.00) Ratio Glucose (70-110) mg/dL POC Glucose (mg/dL) 131 H 145 H (75-99) mg/dL 06/21/20 06/21/20 06/21/20 Range/Units 03:39 07:07 11:14 Hgb (13.0-17.0) g/dL MCH (27.0-32.0) pg MCHC (32.0-37.0) g/dL RDW (11.5-14.5) % Neutrophils # (1.80-7.70) X 10*3/uL Lymphocytes # (0.90-5.00) X 10*3/uL Eosinophils # (0.04-0.35) X 10*3/uL BUN/Creatinine Ratio 23.33 H (12.00-20.00) Ratio Glucose 116 H (70-110) mg/dL POC Glucose (mg/dL) 138 H 126 H (75-99) mg/dL Microbiology - Last 24 Hours (Table) 06/15/20 17:57 Blood Culture - Preliminary Blood No Growth after 120 hours Assessment and Plan Plan: Acute on chronic hypoxic respiratory failure, likely secondary to acute purulent tracheobronchitis, pro-calcitonin 0.08. History of atrial fibrillation. History of heart failure. History of CVA, with residual left-sided weakness. History of diabetes mellitus. History of essential hypertension. History of hyperlipidemia. Lifelong nonsmoker. Plan: Add Augmentin Change Pulmicort and Perforomist to Symbicort Continue prednisone taper Anticoagulated with Eliquis May be discharged from the pulmonary standpoint.
[2020-06-21 13:23] VITALS: BMI 27.2
== END 2020-06-21 14:17 | disposition home or self-care (01) | DRG 202 ==
LOC: EC 17:29 → 3SCARD 20:40 → 5NMEDONC 06-17 22:18
PROVIDERS: ADMIT Hospitalist; ATTEND Hospitalist
PROC: 5A09357 Assistance with Respiratory Ventilation, Less than 24 Consecutive Hours, Continuous Positive Airway Pressure (ICD-10-PCS; principal; 2020-06-15)
DX: J20.9 Acute bronchitis, unspecified (principal); J18.0 Bronchopneumonia, unspecified organism; J96.21 Acute and chronic respiratory failure with hypoxia; J44.0 Chronic obstructive pulmonary disease with (acute) lower respiratory infection; J44.1 Chronic obstructive pulmonary disease with (acute) exacerbation; J98.11 Atelectasis; I69.354 Hemiplegia and hemiparesis following cerebral infarction affecting left non-dominant side; I48.19 Other persistent atrial fibrillation; E87.2 Acidosis; K59.00 Constipation, unspecified; T38.0X5A Adverse effect of glucocorticoids and synthetic analogues, initial encounter; Z20.822 Contact with and (suspected) exposure to COVID-19; I50.9 Heart failure, unspecified; I45.10 Unspecified right bundle-branch block; E11.65 Type 2 diabetes mellitus with hyperglycemia; E78.5 Hyperlipidemia, unspecified; I11.0 Hypertensive heart disease with heart failure; Z79.01 Long term (current) use of anticoagulants; Z79.4 Long term (current) use of insulin; Z79.899 Other long term (current) drug therapy; Z99.81 Dependence on supplemental oxygen
CPT/HCPCS: 36415; 36600; 71046; 71275; 74018; 74019; 74230; 80048; 80053; 82805; 83605; 83735; 83880; 84145; 84484; 85025; 85610; 85730; 87040; 87635; 93005; 93306; 94640; 94760; 96374; 99285

== ENCOUNTER 2020-11-29 16:17 | Emergency (ER) | payer MEDICARE, BC ==
[2020-11-29 16:31] VITALS: RESP 18
--- NOTE | 2020-11-29 16:34 | ED ---
General Adult HPI - General Chief complaint: Shortness of Breath Stated complaint: ANTONIA Time Seen by Provider: 11/29/20 16:25 Source: patient, EMS, RN notes reviewed, old records reviewed Mode of arrival: EMS Limitations: no limitations - History of Present Illness Initial comments: This is an 80-year-old male who presents to the emergency department with the complaint of difficulty breathing. Patient states been ongoing for a couple of weeks. Patient states about a month ago they started weaning him off his oxygen and ever since then he's had more more difficulty breathing. Patient states she doesn't know what his underlying breathing problems are. Patient denies any smoking. Patient denies any chest pain or palpitations. Patient denies any headache patient denies lightheadedness or dizziness. Patient denies any nausea vomiting. Patient denies any recent fever chills or cough per patient denies any calf pain patient denies any additional swelling to the lower extremities. - Related Data Home Medications Medication Instructions Recorded Confirmed Acetaminophen [Tylenol] 1,000 mg PO ONCE PRN 06/15/20 06/15/20 Albuterol Inhaler [Ventolin Hfa 1 - 2 puff INHALATION RT-Q6H PRN 06/15/20 06/15/20 Inhaler] Apixaban [Eliquis] 5 mg PO BID 06/15/20 06/15/20 Ascorbic Acid [Vitamin C] 500 mg PO DAILY 06/15/20 06/15/20 Atorvastatin [Lipitor] 20 mg PO HS 06/15/20 06/15/20 Citalopram Hydrobromide 20 mg PO DAILY 06/15/20 06/15/20 [Citalopram HBr] Cyclobenzaprine [Flexeril] 5 mg PO Q8H PRN 06/15/20 06/15/20 Enalapril Maleate 2.5 mg PO DAILY 06/15/20 06/15/20 Ferrous Sulfate [Iron (65 MG 325 mg PO BID 06/15/20 06/15/20 Elemental)] Flaxseed Oil 1,000 mg PO DAILY 06/15/20 06/15/20 Furosemide [Lasix] 40 mg PO DAILY 06/15/20 06/15/20 Gabapentin [Neurontin] 600 mg PO TID PRN 06/15/20 06/15/20 HYDROcodone/APAP 5-325MG [[place] 1 tab PO Q6H PRN 06/15/20 06/15/20 5-325] Insulin Detemir [Levemir Flextouch] 32 unit SQ BID 06/15/20 06/15/20 Insulin Lispro [humaLOG Kwikpen] 17 unit SQ TID-W/MEALS 06/15/20 06/15/20 Metoprolol Tartrate [Lopressor] 100 mg PO BID 06/15/20 06/15/20 Pantoprazole Sodium [Protonix] 40 mg PO DAILY 06/15/20 06/15/20 Tamsulosin HCl [Flomax] 0.4 mg PO DAILY 06/15/20 06/15/20 dilTIAZem HCL [Diltiazem HCl] 30 mg PO TID 06/15/20 06/15/20 traZODone HCL [Desyrel] 50 mg PO HS PRN 06/15/20 06/15/20 Previous Rx's Medication Instructions Recorded Amoxic-Pot Clav 875-125Mg 1 each PO Q12HR 3 Days #6 tab 06/21/20 [Augmentin 875-125] Budesonide-Formot 160-4.5 Mcg 2 puff INHALATION RT-BID 30 Days 06/21/20 [Symbicort 160-4.5 Mcg Inhaler] #1 inhaler Simethicone Chew [Mylicon Chew] 120 mg PO TID #20 chew 06/21/20 predniSONE See Taper PO DAILY 5 Days #7 tab 06/21/20 Allergies Allergy/AdvReac Type Severity Reaction Status Date / Time No Known Allergies Allergy Verified 06/15/20 20:50 Review of Systems ROS Statement: Those systems with pertinent positive or pertinent negative responses have been documented in the HPI. ROS Other: All systems not noted in ROS Statement are negative. 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 Patient is nontoxic and well- hydrated and is in no acute distress. ENT: Neck is soft and supple. No significant lymphadenopathy is noted. Oropharynx is clear. Moist mucous membranes. Neck has full range of motion without eliciting any pain. EYES: The sclera were anicteric and conjunctiva were pink and moist. Extraocular movements were intact and pupils were equal round and reactive to light. Eyelids were unremarkable. PULMONARY: Unlabored respirations. Diminished breath sounds on the left CARDIOVASCULAR: There is a regular rate and rhythm without any murmurs gallops or rubs. ABDOMEN: Soft and nontender with normal bowel sounds. SKIN: Skin is clear with no lesions or rashes and otherwise unremarkable. NEUROLOGIC: Patient is alert and oriented x3. Cranial nerves II through XII are grossly intact. 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 Normal speech, volume and content. Symmetrical smile. MUSCULOSKELETAL: Normal extremities with adequate strength and full range of motion. LYMPHATICS: No significant lymphadenopathy is noted PSYCHIATRIC: Normal psychiatric evaluation. Limitations: no limitations Course Vital Signs 11/29/20 11/29/20 11/29/20 16:23 16:31 18:38 Temperature 98.3 F 97.9 F Pulse Rate 64 68 70 Respiratory 18 18 18 Rate Blood Pressure 106/71 112/79 94/59 O2 Sat by Pulse 96 94 L 94 L Oximetry Medical Decision Making - Medical Decision Making EKG shows undetermined rhythm at 60 bpm QRS is 142 QT intervals 460 QTC is 489. Patient's a right bundle branch block. Patient's chest x-ray shows no acute abnormality. Patient's pulse ox on room air was 94% throughout his ED stay. Patient was able to get up and sit on the bedside commode without problem and was not short of breath and at no time during his ED stay was he in any distress. - Lab Data Result diagrams: 11/29/20 16:37 11/29/20 16:37 Lab Results 11/29/20 11/29/20 11/29/20 Range/Units 16:37 16:37 16:37 WBC 5.6 (3.8-10.6) k/uL RBC 4.34 (4.30-5.90) m/uL Hgb 13.8 (13.0-17.5) gm/dL Hct 42.0 (39.0-53.0) % MCV 96.7 (80.0-100.0) fL MCH 31.7 (25.0-35.0) pg MCHC 32.8 (31.0-37.0) g/dL RDW 13.8 (11.5-15.5) % Plt Count 191 (150-450) k/uL MPV 7.6 Neutrophils % 67 % Lymphocytes % 22 % Monocytes % 5 % Eosinophils % 4 % Basophils % 1 % Neutrophils # 3.7 (1.3-7.7) k/uL Lymphocytes # 1.2 (1.0-4.8) k/uL Monocytes # 0.3 (0-1.0) k/uL Eosinophils # 0.2 (0-0.7) k/uL Basophils # 0.1 (0-0.2) k/uL PT 10.9 (9.0-12.0) sec INR 1.0 (<1.2) APTT 23.9 (22.0-30.0) sec D-Dimer 0.25 (<0.60) mg/L FEU Sodium 140 (137-145) mmol/L Potassium 4.1 (3.5-5.1) mmol/L Chloride 106 (98-107) mmol/L Carbon Dioxide 23 (22-30) mmol/L Anion Gap 11 mmol/L BUN 16 (9-20) mg/dL Creatinine 1.19 (0.66-1.25) mg/dL Est GFR (CKD-EPI)AfAm 66 (>60 ml/min/1.73 sqM) Est GFR (CKD-EPI)NonAf 57 (>60 ml/min/1.73 sqM) Glucose 193 H (74-99) mg/dL Plasma Lactic Acid [place] (0.7-2.0) mmol/L Calcium 9.4 (8.4-10.2) mg/dL Magnesium 2.0 (1.6-2.3) mg/dL Total Bilirubin 0.5 (0.2-1.3) mg/dL AST 21 (17-59) U/L ALT 12 (4-49) U/L Alkaline Phosphatase 64 (38-126) U/L Troponin I (0.000-0.034) ng/mL NT-Pro-B Natriuret Pep pg/mL Total Protein 6.4 (6.3-8.2) g/dL Albumin 4.1 (3.5-5.0) g/dL 11/29/20 11/29/20 11/29/20 Range/Units 16:37 16:37 16:37 WBC (3.8-10.6) k/uL RBC (4.30-5.90) m/uL Hgb (13.0-17.5) gm/dL Hct (39.0-53.0) % MCV (80.0-100.0) fL MCH (25.0-35.0) pg MCHC (31.0-37.0) g/dL RDW (11.5-15.5) % Plt Count (150-450) k/uL MPV Neutrophils % % Lymphocytes % % Monocytes % % Eosinophils % % Basophils % % Neutrophils # (1.3-7.7) k/uL Lymphocytes # (1.0-4.8) k/uL Monocytes # (0-1.0) k/uL Eosinophils # (0-0.7) k/uL Basophils # (0-0.2) k/uL PT (9.0-12.0) sec INR (<1.2) APTT (22.0-30.0) sec D-Dimer (<0.60) mg/L FEU Sodium (137-145) mmol/L Potassium (3.5-5.1) mmol/L Chloride (98-107) mmol/L Carbon Dioxide (22-30) mmol/L Anion Gap mmol/L BUN (9-20) mg/dL Creatinine (0.66-1.25) mg/dL Est GFR (CKD-EPI)AfAm (>60 ml/min/1.73 sqM) Est GFR (CKD-EPI)NonAf (>60 ml/min/1.73 sqM) Glucose (74-99) mg/dL Plasma Lactic Acid [place] 2.2 H* (0.7-2.0) mmol/L Calcium (8.4-10.2) mg/dL Magnesium (1.6-2.3) mg/dL Total Bilirubin (0.2-1.3) mg/dL AST (17-59) U/L ALT (4-49) U/L Alkaline Phosphatase (38-126) U/L Troponin I <0.012 (0.000-0.034) ng/mL NT-Pro-B Natriuret Pep 1540 pg/mL Total Protein (6.3-8.2) g/dL Albumin (3.5-5.0) g/dL Disposition Clinical Impression: Shortness of breath Disposition: HOME SELF-CARE Instructions (If sedation given, give patient instructions): Shortness of Breath (ED) Is patient prescribed a controlled substance at d/c from ED?: No Referrals: Milly Valdovinos MD [Primary Care Provider] - 1-2 days Time of Disposition: 18:59
[2020-11-29 16:56] LABS: Basophils # (A) 0.1 k/uL (0-0.2); Basophils % (A) 1 %; Eosinophils # (A) 0.2 k/uL (0-0.7); Eosinophils % (A) 4 %; HGB 13.8 gm/dL (13.0-17.5); Lymphocytes # (A) 1.2 k/uL (1.0-4.8); Lymphocytes % (A) 22 %; MCH 31.7 pg (25.0-35.0); MCHC 32.8 g/dL (31.0-37.0); MCV 96.7 fL (80.0-100.0); Mean Platelet Volume 7.6; Monocytes # (A) 0.3 k/uL (0-1.0); Monocytes % (A) 5 %; Neutrophils # (A) 3.7 k/uL (1.3-7.7); Neutrophils % (A) 67 %; Platelet Count 191 k/uL (150-450); RBC 4.34 m/uL (4.30-5.90); RDW 13.8 % (11.5-15.5); WBC 5.6 k/uL (3.8-10.6)
[2020-11-29 17:09] LABS: Albumin 4.1 g/dL (3.5-5.0); Calcium 9.4 mg/dL (8.4-10.2); Potassium 4.1 mmol/L (3.5-5.1); Total Bilirubin 0.5 mg/dL (0.2-1.3); Total Protein 6.4 g/dL (6.3-8.2)
[2020-11-29 17:10] LABS: Partial Thromboplastin Time 23.9 sec (22.0-30.0); Prothrombin Time 10.9 sec (9.0-12.0)
--- NOTE | 2020-11-29 18:22 | XR ---
EXAMINATION TYPE: XR chest 2V DATE OF EXAM: 11/29/2020 COMPARISON: 06/15/2020 HISTORY: Short of breath TECHNIQUE: FINDINGS: There is no heart failure nor confluent pneumonic infiltrate. Costophrenic angles are clear . There is some mild linear density left lung base. There are chest leads. IMPRESSION: Subsegmental atelectasis or scarring at the left lung base that is improved compared to o ld exam. No heart failure.
[2020-11-29 18:58] VITALS: PULSE 70; TEMP 97.9
[2020-11-29 19:44] VITALS: BP 110/88
== END 2020-11-29 20:35 | disposition home or self-care (01) ==
LOC: EC 16:17
DX: R06.02 Shortness of breath (principal); E11.9 Type 2 diabetes mellitus without complications; I48.91 Unspecified atrial fibrillation; I11.0 Hypertensive heart disease with heart failure; I50.9 Heart failure, unspecified; E78.5 Hyperlipidemia, unspecified; Z79.01 Long term (current) use of anticoagulants; Z79.899 Other long term (current) drug therapy; Z79.4 Long term (current) use of insulin
CPT/HCPCS: 36415; 71046; 80053; 83605; 83735; 83880; 84484; 85025; 85379; 85610; 85730; 93005; 99285

== ENCOUNTER 2023-06-07 15:19 | Inpatient (IN) | payer MEDICARE, BC ==
[2023-06-07 15:26] LABS: Glucose,Whole Blood 286 mg/dL (70-110)
[2023-06-07] MEDS ORDERED: SODIUM CHLORIDE 0.9% 1,000 ML IV STA ×3 (15:32→17:10)
[2023-06-07] MEDS ORDERED: ONDANSETRON 4 MG/2 ML VIAL IVP STA (15:32)
[2023-06-07] MEDS ORDERED: VANCOMYCIN IV PER PHARMACY 1 EACH MISC MISCELLANE PRN (15:35)
[2023-06-07] MEDS ORDERED: VANCOMYCIN 1,250 MG in SODIUM CHLORIDE 0.9% 250 ML IVPB STA (15:37)
[2023-06-07 15:55] LABS: ABG Base Excess -12.3 mmol/L; ABG HCO3 14 mmol/L (21-25); ABG Oxygen Saturation 96.9 % (94-97); ABG PCO2 28 mmHg (35-45); ABG PH 7.31 (7.35-7.45); ABG PO2 95 mmHg (83-108); ABG TCO2 15 mmol/L (19-24); Allen Test Performed? Yes
[2023-06-07 16:26] LABS: Anisocytosis Slight; Basophils % (A) 0 %; Eosinophils % (A) 0 %; HCT 47.9 % (39.0-53.0); HGB 15.4 gm/dL (13.0-17.5); Hypochromasia Slight; Lymphocytes # (A) 0.6 k/uL (1.0-4.8); Lymphocytes % (A) 4 %; MCH 35.4 pg (25.0-35.0); MCHC 32.1 g/dL (31.0-37.0); Macrocytosis Marked; Mean Platelet Volume 8.9; Monocytes # (A) 0.8 k/uL (0-1.0); Monocytes % (A) 5 %; Neutrophils # (A) 15.4 k/uL (1.3-7.7); Neutrophils % (A) 91 %; Platelet Count 328 k/uL (150-450); RBC 4.36 m/uL (4.30-5.90); RDW 16.2 % (11.5-15.5); WBC 16.9 k/uL (3.8-10.6)
[2023-06-07 16:27] LABS: INR 1.6 (<1.2); Partial Thromboplastin Time 26.9 sec (22.0-30.0)
[2023-06-07 16:28] LABS: Potassium 3.4 mmol/L (3.5-5.1)
[2023-06-07 16:29] LABS: ALT 15 U/L (4-49); AST 25 U/L (17-59); African American GFR (CKD) 70 (>60 ml/min/1.73 sqM); Albumin 3.2 g/dL (3.5-5.0); Alkaline Phosphatase 64 U/L (38-126); Anion Gap 21 mmol/L; Blood Urea Nitrogen 15 mg/dL (9-20); Calcium 8.3 mg/dL (8.4-10.2); Carbon Dioxide 13 mmol/L (22-30); Chloride 111 mmol/L (98-107); Glucose 247 mg/dL (74-99); Magnesium 1.6 mg/dL (1.6-2.3); Non-African American GFR(CKD) 60 (>60 ml/min/1.73 sqM); Sodium 145 mmol/L (137-145); Total Bilirubin 1.1 mg/dL (0.2-1.3); Total Protein 5.9 g/dL (6.3-8.2)
[2023-06-07 16:36] LABS: NT-Pro-B-Type Natriuretic Pept 5630 pg/mL
--- NOTE | 2023-06-07 16:36 | CT ---
EXAMINATION TYPE: CT brain wo con DATE OF EXAM: 06/07/2023 COMPARISON: None at this location INDICATION: ams DLP: 2244.4 mGycm, Automated exposure control for dose reduction was used. CONTRAST: None CT of the brain is performed utilizing 3 mm thick sections through the posterior fossa and 3 mm thick sections through the remaining calvarium. Study is performed within 24 hours of arrival to the hosp [facility]. No abnormal hyperdensity is present to suggest an acute intracranial hemorrhage. No mass lesion is evident.. Ventricular white matter hypodensity is present, likely on the basis of c hronic white matter ischemic changes. No acute infarcts are evident. . There is a large old infarct through the left frontal parietal exten ding to the watershed region. Ex vacuo effect is evident on the right lateral ventricle and sylvian f issure. Ventricles and sulci are prominent for the patient age. Some ethmoid air cell mucosal thickening is present. Sphenoid sinuses and frontal sinuses are clear. Mastoid air cells are clear. IMPRESSION: 1. Large old right-sided infarct. 2. Chronic appearing periventricular white matter ischemic type changes with atrophy. 3. No acute intracranial process radiographically apparent. Follow-up MRI can be performed as clinica lly indicated.
[2023-06-07 16:49] LABS: Hypersegmented Neutrophils Present
[2023-06-07] MEDS ORDERED: INSULIN REGULAR BOLUS (FROM DRIP BAG) IV ONE (17:02)
[2023-06-07] MEDS ORDERED: Potassium Replacement Protocol 1 EACH MISC MISCELLANE PRN ×2 (17:02→20:18)
[2023-06-07] MEDS ORDERED: Magnesium Replacement Protocol 1 EACH MISC MISCELLANE PRN (17:02)
[2023-06-07] MEDS ORDERED: DEXTROSE 50% SYRINGE 50 ML IVP PRN ×2 (17:02)
[2023-06-07] MEDS ORDERED: NALOXONE 0.4 MG/ML 1 ML VIAL IV PRN ×2 (17:10→17:12)
[2023-06-07] MEDS ORDERED: ONDANSETRON 4 MG/2 ML VIAL IVP PRN (17:12)
--- NOTE | 2023-06-07 17:15 | ED ---
General Adult HPI - General Chief complaint: Abdominal Pain Stated complaint: Afib Time Seen by Provider: 06/07/23 15:24 Source: patient, RN notes reviewed, old records reviewed Mode of arrival: EMS - History of Present Illness Initial comments: Patient is an 82-year-old male who presents as a transfer from [facility]- alone ER on [address]. Transferred for sepsis, suspected from UTI. Patient presented to the outside emergency department complaining of somewhat chronic ab dominal pain, recently treated for UTI. Presented in A-fib with RVR and appearing dehydrated. Also has a history of A-fib as well as diabetes. Was dehydrated per staff. Given doses of Cardizem as well as 1 L fluid bolus at that ER. Was started empirically on Zosyn. CT abdomen pelvis revealed n onspecific inflammatory findings in the lower bowel. Chest x-ray revealed no obvious findings. Was transferred here for further evaluation. Patient was alert and oriented x 2 at the other facility. Currently is alert and oriented x 3. Family is at bedside and states that he has improved. He has no acute complaints at this time. He states he has no abdominal pain. Denies chest pain or shortness of breath.Patient apparently also has been having diarrhea for multiple days. - Related Data Home Medications Medication Instructions Recorded Confirmed Albuterol Inhaler [Ventolin Hfa 1 - 2 puff INHALATION RT-Q6H PRN 06/15/20 06/07/23 Inhaler] Apixaban [Eliquis] 5 mg PO BID 06/15/20 06/07/23 Atorvastatin [Lipitor] 20 mg PO HS 06/15/20 06/07/23 Citalopram Hydrobromide 20 mg PO DAILY 06/15/20 06/07/23 [Citalopram HBr] Enalapril Maleate 2.5 mg PO DAILY 06/15/20 06/07/23 Furosemide [Lasix] 40 mg PO DAILY 06/15/20 06/07/23 Gabapentin [Neurontin] 600 mg PO TID PRN 06/15/20 06/07/23 HYDROcodone/APAP 5-325MG [Bend 1 tab PO Q6H PRN 06/15/20 06/07/23 5-325] Metoprolol Tartrate [Lopressor] 100 mg PO BID 06/15/20 06/07/23 Pantoprazole Sodium [Protonix] 40 mg PO DAILY 06/15/20 06/07/23 Tamsulosin HCl [Flomax] 0.4 mg PO DAILY 06/15/20 06/07/23 traZODone HCL [Desyrel] 100 mg PO HS 06/15/20 06/07/23 Ciprofloxacin HCl [Cipro] 500 mg PO Q12HR 06/07/23 06/07/23 Semaglutide [Ozempic] 0.5 mg SQ WE 06/07/23 06/07/23 Allergies Allergy/AdvReac Type Severity Reaction Status Date / Time No Known Allergies Allergy Verified 06/07/23 18:23 Review of Systems ROS Statement: Those systems with pertinent positive or pertinent negative responses have been documented in the HPI. Review of Systems: CONST: Denies fever EYES: Denies blurry vision ENT: Denies nasal congestion C/V: Denies Chest pain RESP: Denies shortness of breath GI: Denies abdominal pain : Denies dysuria SKIN: Denies rash. MSK: Denies joint pain. NEURO: Denies headache ROS Other: All systems not noted in ROS Statement are negative. 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 HEAD: Normal with no signs of head trauma. EYES: PERRLA, EOMI, conjunctiva normal, no discharge. Pupils are 3 mm and equal bilaterally. ENT: Hearing grossly intact, normal oropharynx. Dry mucous membranes. RESPIRATORY: Clear breath sounds bilaterally. No wheezes, rales, or rhonchi. C/V: Regular rate and rhythm. S1 and S2 auscultated, no edema, peripheral pulses 2+ and intact throughout ABD: Abd is soft, nontender, nondistended. No obvious focal tenderness when I press. Exam unremarkable. EXT: Normal range of motion, no obvious deformity SKIN: No rashes or lesions observed on exposed skin. NEURO: Alert and oriented x 3. No focal deficits. Course Vital Signs 01/06/07/23 06/07/23 15:21 15:37 19:00 Temperature 97.4 F L 98 F Pulse Rate 96 104 H Respiratory 20 18 Rate Blood Pressure 135/93 112/91 O2 Sat by Pulse 95 100 Oximetry 06/07/23 06/07/23 19:05 20:15 Temperature Pulse Rate 93 110 H Respiratory 20 20 Rate Blood Pressure 112/91 124/80 O2 Sat by Pulse Oximetry Procedures - Sepsis Sepsis Focused Exam #1 Time Sepsis Criteria Met: 15:32 (Diagnosed prior to transfer to our facility) Sepsis Focused Exam Date: 06/07/23 Sepsis Focused Exam Time: 20:20 Sepsis Focused Exam Complete: Yes Vital Signs & RN Notes Reviewed: Yes Capillary Refill: > 2 Seconds: Fingers, Toes Peripheral Pulses: Normal: Radial (R), Radial (L) Skin Color: Normal for Patient Respiratory Exam: normal lung sounds Cardiovascular Exam: regular rate Medical Decision Making - Medical Decision Making Was pt. sent in by a medical professional or institution (, PA, INDUSTRIAL ORGANIZATION MANAGER, urgent care, hospital, or group home...) When possible be specific @ -Transferred from outside stand-alone ER [facility] at [address]. Did you speak to anyone other than the patient for history (EMS, parent, family, police, friend...)? What history was obtained from this source @ -Spoke with family who provided additional history as well as EMS. Did you review nursing and triage notes (agree or disagree)? Why? @ -I reviewed and agree with nursing and triage notes Were old charts reviewed (outside hosp., previous admission, EMS record, old EKG, old radiological studies, urgent care reports/EKG's, group home records)? Report findings @ -Old charts reviewed Differential Diagnosis (chest pain, altered mental status, abdominal pain women, abdominal pain men, vaginal bleeding, weakness, fever, dyspnea, syncope, headache, dizziness, GI bleed, back pain, seizure, CVA, palpatations, mental health, musculoskeletal)? @ -Differential Weakness: Hypoglycemia, shock, sepsis, hyponatremia, anemia, infection, NV, ETOH, adverse medicine reaction, overdose, stroke, this is not meant to be an all-inclusive list. Differential Abdominal Pain Men: Appendicitis, cholecystitis, diverticulosis, ischemic bowel, pancreatitis, hepatitis, UTI, gastroenteritis, AAA, incarcerated hernia, bowel obstruction, constipation, inflammatory bowel, hepatitis, peptic ulcer disease, splenic infarction, perforated viscus, testicular torsion, this is not meant to be an all-inclusive list EKG interpreted by me (3pts min.). @ -As above X-rays interpreted by me (1pt min.). @ -None done CT interpreted by me (1pt min.). @ -CT brain interpreted by myself as revealing no obvious acute intracranial process. Evidence of old strokes present. U/S interpreted by me (1pt. min.). @ -None done What testing was considered but not performed or refused? (CT, X-rays, U/S, labs)? Why? @ -None What meds were considered but not given or refused? Why? @ -None Did you discuss the management of the patient with other professionals (professionals i.e. , PA, INDUSTRIAL ORGANIZATION MANAGER, lab, RT, psych nurse, manager social, boilermaker apprentice, teacher, returning officer, sample case porter)? Give summary @ -Discussed with the admitting physician Dr. Dinh who accepted the patient. Was smoking cessation discussed for >3mins.? @ -No Was critical care preformed (if so, how long)? @ -Yes, 38 minutes. Were there social determinants of health that impacted care today? How? (Homelessness, low income, unemployed, alcoholism, drug addiction, transportation, low edu. Level, literacy, decrease access to med. care, fpc, rehab)? @ -No Was there de-escalation of care discussed even if they declined (Discuss DNR or withdrawal of care, Hospice)? DNR status @ -Yes. Patient's family wishes him to remain full code. What co-morbidities impacted this encounter? (DM, HTN, Smoking, COPD, CAD, Cancer, CVA, ARF, Chemo, Hep., AIDS, mental health diagnosis, sleep apnea, morbid obesity)? @ -Diabetes Was patient admitted / discharged? Hospital course, mention meds given and route, prescriptions, significant lab abnormalities, going to OR and other pertinent info. @ -Based on patient's presentation and physical exam, presents for further monitoring of his breakthrough A-fib with RVR as well as sepsis. A-fib with RVR likely secondary to sepsis. Currently is in rate controlled A-fib with heart rates less than 110. Hemodynamically stable otherwise. Appears dehydrated. I did review laboratory studies and appears the patient is in DKA as well with ket ones in the urine from the other facility. We will repeat labs at this time. Patient has received a total of 1 L fluid bolus. I will provide an additional liter of fluid following the liter that EMS is hanging. There will be a total of 3 L. Per family patient has been having days of diarrhea as well. He currently has no acute complaints. On arrival, patient was being treated for sepsis, and I did continue Zosyn as well as added vancomycin at this time. Patient also given the additional fluid boluses as above. EKG showed rate controlled atrial fibrillation. I did obtain a CT brain as the patient was altered with a history of being on blood thinners. CT brain unremarkable. No acute findings or injuries. Laboratory studies remarkable for findings consistent with DKA with an anion gap metabolic acidosis. Patient's blood sugar is in the mid 200s. Patient is COVID-positive. Positive acetone's. 2+ ketones in the urine. Patient has a leukocytosis of 16.9. ABG was obtained and reveals a slightly compensated metabolic acidosis. Patient was started on DKA protocol and insulin drip at this time. Patient does have a lactic acidosis of 4.9 likely secondary to dehydration, DKA, as well as possible sepsis. Repeat is improved. We will continue with IV fluids. Updated family. Patient will be admitted at this time. I spoke with the admitting physician, Dr. Dinh who accepted the admission. Will continue treatment with IV fluids, insulin drip, antibiotics for sepsis. Patient is at his baseline mental status at this time. Remains hemodynamically stable. They were in agreement this plan. Cardiology was consulted for the episode of A-fib with RVR at the outside hospital as well as the patient's history of A-fib. Undiagnosed new problem with uncertain prognosis? @ -No Drug Therapy requiring intensive monitoring for toxicity (Heparin, Nitro, Insulin, Cardizem)? @ -Insulin Were any procedures done? @ -No Diagnosis/symptom? @ -Atrial fibrillation, DKA, sepsis, COVID-19 infection, colitis, lactic acidosis Acute, or Chronic, or Acute on Chronic? @ -Acute Uncomplicated (without systemic symptoms) or Complicated (systemic symptoms)? @ -Complicated Side effects of treatment? @ -No Exacerbation, Progression, or Severe Exacerbation? @ -No Poses a threat to life or bodily function? How? (Chest pain, USA, NV, pneumonia, PE, COPD, DKA, ARF, appy, cholecystitis, CVA, Diverticulitis, Homicidal, Suicidal, threat to staff... and all critical care pts) @ -Yes - Lab Data Result diagrams: 06/07/23 15:40 06/07/23 18:56 Lab Results 06/07/23 06/07/23 06/07/23 Range/Units 15:25 15:40 15:40 WBC 16.9 H (3.8-10.6) k/uL RBC 4.36 (4.30-5.90) m/uL Hgb 15.4 (13.0-17.5) gm/dL Hct 47.9 (39.0-53.0) % MCV 110.0 H (80.0-100.0) fL MCH 35.4 H (25.0-35.0) pg MCHC 32.1 (31.0-37.0) g/dL RDW 16.2 H (11.5-15.5) % Plt Count 328 (150-450) k/uL MPV 8.9 Neutrophils % 91 % Lymphocytes % 4 % Monocytes % 5 % Eosinophils % 0 % Basophils % 0 % Neutrophils # 15.4 H (1.3-7.7) k/uL Lymphocytes # 0.6 L (1.0-4.8) k/uL Monocytes # 0.8 (0-1.0) k/uL Eosinophils # 0.0 (0-0.7) k/uL Basophils # 0.0 (0-0.2) k/uL Manual Slide Review Performed Hypersegmented Neuts Present Hypochromasia Slight Anisocytosis Slight Macrocytosis Marked A PT 16.0 H (10.0-12.5) sec INR 1.6 H (<1.2) APTT 26.9 (22.0-30.0) sec Sample Site ABG pH (7.35-7.45) ABG pCO2 (35-45) mmHg ABG pO2 (83-108) mmHg ABG HCO3 (21-25) mmol/L ABG Total CO2 (19-24) mmol/L ABG O2 Saturation (94-97) % ABG Base Excess mmol/L Nolan Test FiO2 % Sodium (137-145) mmol/L Potassium (3.5-5.1) mmol/L Chloride (98-107) mmol/L Carbon Dioxide (22-30) mmol/L Anion Gap mmol/L BUN (9-20) mg/dL Creatinine (0.66-1.25) mg/dL Est GFR (CKD-EPI)AfAm (>60 ml/min/1.73 sqM) Est GFR (CKD-EPI)NonAf (>60 ml/min/1.73 sqM) Glucose (74-99) mg/dL POC Glucose (mg/dL) 286 H (70-110) mg/dL POC Glu Asp Net Software Developer ID Catia Lomeli Lactic Ac Sepsis Rflx Plasma Lactic Acid [place] (0.7-2.0) mmol/L Calcium (8.4-10.2) mg/dL Magnesium (1.6-2.3) mg/dL Total Bilirubin (0.2-1.3) mg/dL AST (17-59) U/L ALT (4-49) U/L Alkaline Phosphatase (38-126) U/L Troponin I (0.000-0.034) ng/mL NT-Pro-B Natriuret Pep pg/mL Total Protein (6.3-8.2) g/dL Albumin (3.5-5.0) g/dL Urine Color Urine Appearance (Clear) Urine pH (5.0-8.0) Ur Specific [place] (1.001-1.035) Urine Protein (Negative) Urine Glucose (UA) (Negative) Urine Ketones (Negative) Urine Blood (Negative) Urine Nitrite (Negative) Urine Bilirubin (Negative) Urine Urobilinogen (<2.0) mg/dL Ur Leukocyte Esterase (Negative) Urine RBC (0-5) /hpf Urine WBC (0-5) /hpf Ur Squamous Epith Cells (0-4) /hpf Urine Mucus (None) /hpf Ur Yeast w Hyphae (None) /hpf Urine Yeast (Budding) (None) /hpf Acetone, Qual (Negative) Influenza Type A (PCR) (Not Detectd) Influenza Type B (PCR) (Not Detectd) RSV (PCR) (Not Detectd) SARS-CoV-2 (PCR) (Not Detectd) 06/07/23 06/07/23 06/07/23 Range/Units 15:40 15:40 15:40 WBC (3.8-10.6) k/uL RBC (4.30-5.90) m/uL Hgb (13.0-17.5) gm/dL Hct (39.0-53.0) % MCV (80.0-100.0) fL MCH (25.0-35.0) pg MCHC (31.0-37.0) g/dL RDW (11.5-15.5) % Plt Count (150-450) k/uL MPV Neutrophils % % Lymphocytes % % Monocytes % % Eosinophils % % Basophils % % Neutrophils # (1.3-7.7) k/uL Lymphocytes # (1.0-4.8) k/uL Monocytes # (0-1.0) k/uL Eosinophils # (0-0.7) k/uL Basophils # (0-0.2) k/uL Manual Slide Review Hypersegmented Neuts Hypochromasia Anisocytosis Macrocytosis PT (10.0-12.5) sec INR (<1.2) APTT (22.0-30.0) sec Sample Site ABG pH (7.35-7.45) ABG pCO2 (35-45) mmHg ABG pO2 (83-108) mmHg ABG HCO3 (21-25) mmol/L ABG Total CO2 (19-24) mmol/L ABG O2 Saturation (94-97) % ABG Base Excess mmol/L Nolan Test FiO2 % Sodium 145 (137-145) mmol/L Potassium 3.4 L (3.5-5.1) mmol/L Chloride 111 H (98-107) mmol/L Carbon Dioxide 13 L (22-30) mmol/L Anion Gap 21 mmol/L BUN 15 (9-20) mg/dL Creatinine 1.12 (0.66-1.25) mg/dL Est GFR (CKD-EPI)AfAm 70 (>60 ml/min/1.73 sqM) Est GFR (CKD-EPI)NonAf 60 (>60 ml/min/1.73 sqM) Glucose 247 H (74-99) mg/dL POC Glucose (mg/dL) (70-110) mg/dL POC Glu Asp Net Software Developer ID Lactic Ac Sepsis Rflx Plasma Lactic Acid [place] 4.9 H* (0.7-2.0) mmol/L Calcium 8.3 L (8.4-10.2) mg/dL Magnesium 1.6 (1.6-2.3) mg/dL Total Bilirubin 1.1 (0.2-1.3) mg/dL AST 25 (17-59) U/L ALT 15 (4-49) U/L Alkaline Phosphatase 64 (38-126) U/L Troponin I 0.032 (0.000-0.034) ng/mL NT-Pro-B Natriuret Pep 5630 pg/mL Total Protein 5.9 L (6.3-8.2) g/dL Albumin 3.2 L (3.5-5.0) g/dL Urine Color Urine Appearance (Clear) Urine pH (5.0-8.0) Ur Specific [place] (1.001-1.035) Urine Protein (Negative) Urine Glucose (UA) (Negative) Urine Ketones (Negative) Urine Blood (Negative) Urine Nitrite (Negative) Urine Bilirubin (Negative) Urine Urobilinogen (<2.0) mg/dL Ur Leukocyte Esterase (Negative) Urine RBC (0-5) /hpf Urine WBC (0-5) /hpf Ur Squamous Epith Cells (0-4) /hpf Urine Mucus (None) /hpf Ur Yeast w Hyphae (None) /hpf Urine Yeast (Budding) (None) /hpf Acetone, Qual Positive (Negative) Influenza Type A (PCR) (Not Detectd) Influenza Type B (PCR) (Not Detectd) RSV (PCR) (Not Detectd) SARS-CoV-2 (PCR) (Not Detectd) 06/07/23 06/07/23 06/07/23 Range/Units 15:40 15:40 15:53 WBC (3.8-10.6) k/uL RBC (4.30-5.90) m/uL Hgb (13.0-17.5) gm/dL Hct (39.0-53.0) % MCV (80.0-100.0) fL MCH (25.0-35.0) pg MCHC (31.0-37.0) g/dL RDW (11.5-15.5) % Plt Count (150-450) k/uL MPV Neutrophils % % Lymphocytes % % Monocytes % % Eosinophils % % Basophils % % Neutrophils # (1.3-7.7) k/uL Lymphocytes # (1.0-4.8) k/uL Monocytes # (0-1.0) k/uL Eosinophils # (0-0.7) k/uL Basophils # (0-0.2) k/uL Manual Slide Review Hypersegmented Neuts Hypochromasia Anisocytosis Macrocytosis PT (10.0-12.5) sec INR (<1.2) APTT (22.0-30.0) sec Sample Site lrad ABG pH 7.31 L (7.35-7.45) ABG pCO2 28 L (35-45) mmHg ABG pO2 95 (83-108) mmHg ABG HCO3 14 L (21-25) mmol/L ABG Total CO2 15 L (19-24) mmol/L ABG O2 Saturation 96.9 (94-97) % ABG Base Excess -12.3 mmol/L Nolan Test Yes FiO2 21 % Sodium (137-145) mmol/L Potassium (3.5-5.1) mmol/L Chloride (98-107) mmol/L Carbon Dioxide (22-30) mmol/L Anion Gap mmol/L BUN (9-20) mg/dL Creatinine (0.66-1.25) mg/dL Est GFR (CKD-EPI)AfAm (>60 ml/min/1.73 sqM) Est GFR (CKD-EPI)NonAf (>60 ml/min/1.73 sqM) Glucose (74-99) mg/dL POC Glucose (mg/dL) (70-110) mg/dL POC Glu Asp Net Software Developer ID Lactic Ac Sepsis Rflx Plasma Lactic Acid [place] (0.7-2.0) mmol/L Calcium (8.4-10.2) mg/dL Magnesium (1.6-2.3) mg/dL Total Bilirubin (0.2-1.3) mg/dL AST (17-59) U/L ALT (4-49) U/L Alkaline Phosphatase (38-126) U/L Troponin I (0.000-0.034) ng/mL NT-Pro-B Natriuret Pep pg/mL Total Protein (6.3-8.2) g/dL Albumin (3.5-5.0) g/dL Urine Color Light Yellow Urine Appearance Clear (Clear) Urine pH 5.5 (5.0-8.0) Ur Specific [place] 1.048 H (1.001-1.035) Urine Protein Trace H (Negative) Urine Glucose (UA) Trace H (Negative) Urine Ketones 2+ H (Negative) Urine Blood Moderate H (Negative) Urine Nitrite Negative (Negative) Urine Bilirubin Negative (Negative) Urine Urobilinogen <2.0 (<2.0) mg/dL Ur Leukocyte Esterase Moderate H (Negative) Urine RBC 30 H (0-5) /hpf Urine WBC 23 H (0-5) /hpf Ur Squamous Epith Cells 1 (0-4) /hpf Urine Mucus Rare H (None) /hpf Ur Yeast w Hyphae Rare (None) /hpf Urine Yeast (Budding) Occasional H (None) /hpf Acetone, Qual (Negative) Influenza Type A (PCR) Not Detected (Not Detectd) Influenza Type B (PCR) Not Detected (Not Detectd) RSV (PCR) Not Detected (Not Detectd) SARS-CoV-2 (PCR) Detected A (Not Detectd) 06/07/23 Range/Units 16:40 WBC (3.8-10.6) k/uL RBC (4.30-5.90) m/uL Hgb (13.0-17.5) gm/dL Hct (39.0-53.0) % MCV (80.0-100.0) fL MCH (25.0-35.0) pg MCHC (31.0-37.0) g/dL RDW (11.5-15.5) % Plt Count (150-450) k/uL MPV Neutrophils % % Lymphocytes % % Monocytes % % Eosinophils % % Basophils % % Neutrophils # (1.3-7.7) k/uL Lymphocytes # (1.0-4.8) k/uL Monocytes # (0-1.0) k/uL Eosinophils # (0-0.7) k/uL Basophils # (0-0.2) k/uL Manual Slide Review Hypersegmented Neuts Hypochromasia Anisocytosis Macrocytosis PT (10.0-12.5) sec INR (<1.2) APTT (22.0-30.0) sec Sample Site ABG pH (7.35-7.45) ABG pCO2 (35-45) mmHg ABG pO2 (83-108) mmHg ABG HCO3 (21-25) mmol/L ABG Total CO2 (19-24) mmol/L ABG O2 Saturation (94-97) % ABG Base Excess mmol/L Nolan Test FiO2 % Sodium (137-145) mmol/L Potassium (3.5-5.1) mmol/L Chloride (98-107) mmol/L Carbon Dioxide (22-30) mmol/L Anion Gap mmol/L BUN (9-20) mg/dL Creatinine (0.66-1.25) mg/dL Est GFR (CKD-EPI)AfAm (>60 ml/min/1.73 sqM) Est GFR (CKD-EPI)NonAf (>60 ml/min/1.73 sqM) Glucose (74-99) mg/dL POC Glucose (mg/dL) (70-110) mg/dL POC Glu Asp Net Software Developer ID Lactic Ac Sepsis Rflx Y Plasma Lactic Acid [place] (0.7-2.0) mmol/L Calcium (8.4-10.2) mg/dL Magnesium (1.6-2.3) mg/dL Total Bilirubin (0.2-1.3) mg/dL AST (17-59) U/L ALT (4-49) U/L Alkaline Phosphatase (38-126) U/L Troponin I (0.000-0.034) ng/mL NT-Pro-B Natriuret Pep pg/mL Total Protein (6.3-8.2) g/dL Albumin (3.5-5.0) g/dL Urine Color Urine Appearance (Clear) Urine pH (5.0-8.0) Ur Specific [place] (1.001-1.035) Urine Protein (Negative) Urine Glucose (UA) (Negative) Urine Ketones (Negative) Urine Blood (Negative) Urine Nitrite (Negative) Urine Bilirubin (Negative) Urine Urobilinogen (<2.0) mg/dL Ur Leukocyte Esterase (Negative) Urine RBC (0-5) /hpf Urine WBC (0-5) /hpf Ur Squamous Epith Cells (0-4) /hpf Urine Mucus (None) /hpf Ur Yeast w Hyphae (None) /hpf Urine Yeast (Budding) (None) /hpf Acetone, Qual (Negative) Influenza Type A (PCR) (Not Detectd) Influenza Type B (PCR) (Not Detectd) RSV (PCR) (Not Detectd) SARS-CoV-2 (PCR) (Not Detectd) - EKG Data -: EKG Interpreted by Me EKG Comments: 12-lead Electrocardiogram Interpretation Note EKG was reviewed and interpreted by myself. 12-lead ECG performed at 1529 is interpreted by me as revealing atrial fibrillation t a rate of 103 beats per minute. [place] is normal. QRS duration is 127 ms, QTc is 490 ms.. There were no obvious acute ST or T wave abnormalities to suggest myocardial ischemia or injury. R wave progression across the precordium was satisfactory. By my interpretation this EKG is non-diagnostic for acute ischemia. Chronic T wave inversion seen in the precordial leads. Critical Care Time Critical Care Time: Yes Total Critical Care Time: 38 Disposition Clinical Impression: Atrial fibrillation, DKA (diabetic ketoacidosis), Sepsis, Atrial fibrillation with RVR, COVID-19 virus infection, Colitis, Lactic acidosis Disposition: ADMITTED IP TO THIS HOSP Condition: Serious Time of Disposition: 17:10
[2023-06-07] MEDS: PIPERACILLIN-TAZOBACTAM 3.375 GM in SODIUM CHLORIDE 0.9% 100 ML IVPB SCH (17:35)
[2023-06-07] MEDS: SODIUM CHLORIDE 0.9% 1,000 ML IV SCH ×2 (17:36→22:33)
[2023-06-07 17:51] LABS: Appearance,Urine Clear (Clear); Bilirubin,Urine Negative (Negative); Blood,Urine Moderate (Negative); Budding Yeast,Urine Occasional /hpf; Color,Urine Light Yellow; Glucose,Urine (UA) Trace (Negative); Hyphae Yeast, Urine Rare /hpf; Ketones,Urine 2+ (Negative); Leukocyte Esterase,Urine Moderate (Negative); Mucus,Urine Rare /hpf; Nitrite,Urine Negative (Negative); PH, Urine 5.5 (5.0-8.0); Protein,Urine Trace (Negative); RBC,Urine 30 /hpf (0-5); Squamous Epithelial Cell,Urine 1 /hpf (0-4); Urobilinogen,Urine <2.0 mg/dL (<2.0); WBC,Urine 23 /hpf (0-5)
[2023-06-07 18:17] LABS: Glucose,Whole Blood 219 mg/dL (70-110)
[2023-06-07] MEDS: INSULIN REGULAR 100 UNIT in SODIUM CHLORIDE 0.9% 100 ML IV SCH ×2 (18:18→21:40)
[2023-06-07 18:23] LABS: Specific Gravity,Urine 1.048 (1.001-1.035)
[2023-06-07] MEDS: D5-0.45% NACL WITH KCL 20MEQ/L 1,000 ML IV SCH (18:32)
[2023-06-07 19:05] LABS: Glucose,Whole Blood 219 mg/dL (70-110)
[2023-06-07 19:45] LABS: African American GFR (CKD) 78 (>60 ml/min/1.73 sqM); Anion Gap 16 mmol/L; Blood Urea Nitrogen 15 mg/dL (9-20); Carbon Dioxide 14 mmol/L (22-30); Chloride 115 mmol/L (98-107); Glucose 229 mg/dL (74-99); Non-African American GFR(CKD) 67 (>60 ml/min/1.73 sqM); Potassium 2.8 mmol/L (3.5-5.1); Sodium 145 mmol/L (137-145)
[2023-06-07] MEDS ORDERED: GABAPENTIN 300 MG CAP PO PRN (19:53)
[2023-06-07] MEDS ORDERED: ALBUTEROL NEBULIZED 2.5 MG/3 ML INHALATION PRN (19:53)
[2023-06-07 20:23] LABS: Glucose,Whole Blood 186 mg/dL (70-110)
[2023-06-07] MEDS: POTASSIUM CHLORIDE ER 20 MEQ TAB.ER PO SCH ×2 (20:29→22:37)
[2023-06-07] MEDS: METOPROLOL TARTRATE 50 MG TAB PO SCH (20:32)
[2023-06-07] MEDS: ATORVASTATIN 20 MG TAB PO SCH (20:32)
[2023-06-07] MEDS: APIXABAN 5 MG TAB PO SCH (20:32)
[2023-06-07] MEDS ORDERED: SODIUM CHLORIDE 0.9% 500 ML 500 ML IV STA (20:57)
[2023-06-07 21:40] LABS: Glucose,Whole Blood 149 mg/dL (70-110)
[2023-06-07 22:36] LABS: Glucose,Whole Blood 118 mg/dL (70-110)
[2023-06-07 23:25] LABS: African American GFR (CKD) 76 (>60 ml/min/1.73 sqM); Anion Gap 13 mmol/L; Blood Urea Nitrogen 16 mg/dL (9-20); Carbon Dioxide 16 mmol/L (22-30); Chloride 117 mmol/L (98-107); Glucose 149 mg/dL (74-99); Non-African American GFR(CKD) 66 (>60 ml/min/1.73 sqM); Sodium 146 mmol/L (137-145)
[2023-06-07 23:32] LABS: Phosphorus 3.2 mg/dL (2.5-4.5); Potassium 3.5 mmol/L (3.5-5.1)
[2023-06-07 23:36] LABS: Glucose,Whole Blood 103 mg/dL (70-110)
[2023-06-08] MEDS: POTASSIUM CHLORIDE ER 20 MEQ TAB.ER PO SCH (00:05)
[2023-06-08 00:37] LABS: Glucose,Whole Blood 108 mg/dL (70-110)
[2023-06-08] MEDS: traZODone HCL 100 MG TAB PO SCH ×2 (00:40→21:49)
[2023-06-08] MEDS: PIPERACILLIN-TAZOBACTAM 3.375 GM in SODIUM CHLORIDE 0.9% 100 ML IVPB SCH ×3 (00:48→17:00)
[2023-06-08] MEDS: D5-0.45% NACL WITH KCL 20MEQ/L 1,000 ML IV SCH ×3 (00:48→09:36)
[2023-06-08 01:34] LABS: Glucose,Whole Blood 89 mg/dL (70-110)
[2023-06-08 02:08] LABS: Glucose,Whole Blood 79 mg/dL (70-110)
[2023-06-08 02:37] LABS: Glucose,Whole Blood 87 mg/dL (70-110)
[2023-06-08 03:07] LABS: Glucose,Whole Blood 106 mg/dL (70-110)
[2023-06-08] MEDS: SODIUM CHLORIDE 0.9% 1,000 ML IV SCH ×4 (03:36→17:01)
[2023-06-08 03:39] LABS: Glucose,Whole Blood 87 mg/dL (70-110)
[2023-06-08 04:17] LABS: Glucose,Whole Blood 81 mg/dL (70-110)
[2023-06-08 04:34] LABS: Glucose,Whole Blood 81 mg/dL (70-110)
[2023-06-08 05:02] LABS: Glucose,Whole Blood 70 mg/dL (70-110)
[2023-06-08] MEDS ORDERED: ALBUTEROL HFA INHALER INHALATION PRN (05:27)
[2023-06-08 05:37] LABS: Glucose,Whole Blood 87 mg/dL (70-110)
[2023-06-08 06:06] LABS: Basophils % (A) 0 %; Eosinophils # (A) 0.2 k/uL (0-0.7); Eosinophils % (A) 1 %; HCT 38.7 % (39.0-53.0); HGB 12.8 gm/dL (13.0-17.5); Hypochromasia Slight; Lymphocytes # (A) 1.1 k/uL (1.0-4.8); Lymphocytes % (A) 9 %; MCH 35.6 pg (25.0-35.0); MCHC 33.1 g/dL (31.0-37.0); MCV 107.6 fL (80.0-100.0); Macrocytosis Marked; Mean Platelet Volume 8.3; Monocytes # (A) 0.6 k/uL (0-1.0); Monocytes % (A) 4 %; Neutrophils # (A) 11.2 k/uL (1.3-7.7); Neutrophils % (A) 85 %; Platelet Count 239 k/uL (150-450); RDW 15.9 % (11.5-15.5); WBC 13.2 k/uL (3.8-10.6)
[2023-06-08 06:10] LABS: Glucose,Whole Blood 81 mg/dL (70-110)
[2023-06-08 06:15] LABS: African American GFR (CKD) 86 (>60 ml/min/1.73 sqM); Anion Gap 7 mmol/L; Blood Urea Nitrogen 16 mg/dL (9-20); Calcium 7.8 mg/dL (8.4-10.2); Carbon Dioxide 20 mmol/L (22-30); Chloride 117 mmol/L (98-107); Glucose 96 mg/dL (74-99); Non-African American GFR(CKD) 75 (>60 ml/min/1.73 sqM); Sodium 144 mmol/L (137-145)
[2023-06-08 06:18] LABS: Potassium 3.8 mmol/L (3.5-5.1)
[2023-06-08 06:44] LABS: Glucose,Whole Blood 84 mg/dL (70-110)
[2023-06-08 07:51] LABS: Glucose,Whole Blood 96 mg/dL (70-110)
[2023-06-08] MEDS ORDERED: FUROSEMIDE 40 MG TAB PO SCH (09:00)
[2023-06-08] MEDS ORDERED: lisinopriL 5 MG TAB PO SCH (09:00)
[2023-06-08] MEDS ORDERED: VANCOMYCIN 1,250 MG in SODIUM CHLORIDE 0.9% 250 ML IVPB SCH (09:00)
[2023-06-08 09:01] LABS: Glucose,Whole Blood 96 mg/dL (70-110)
--- NOTE | 2023-06-08 09:17 | P.CRDCN ---
History of Present Illness History of present illness: HISTORY OF PRESENT ILLNESS: This is a 82-year-old male with a past medical history significant for diabetes, hypertension, hyperlipidemia, CVA, and permanent atrial fibrillation.. Patient used to follow in the office with Dr. Soria but has not been seen since April 2021. We have been asked to see the patient in consultation for atrial fibrillation. Patient examined at the bedside in the emergency room. There is no family present at time of examination. Patient is lethargic and unable to provide any HPI. Apparently, he was transferred to [facility] from the [facility] on 26 mile/i94. Patient was transferred secondary to sepsis and urinary tract infection. The patient has been hypotensive throughout the night with a systolic blood pressure between 7080. Bedside telemetry reveals atrial fibrillation with controlled ventricular rate. Patient's blood pressure at time of examination is 72/50. DIAGNOSTICS: - EKG reveals atrial fibrillation with controlled ventricular rate. Right bundle branch block. - Chest xray not available at time of dictation - CT brain: Large old right-sided infarct. Chronic appearing periventricular white matter ischemic type changes with atrophy. - Laboratory data: WBC 13.2. Hemoglobin 12.8. Platelet count 239. Sodium 144. Potassium 3.8. BUN 16. Creatinine 0.94. Lactic acid 4.2. Repeat 3.3. Troponin negative times 3. proBNP 5630. - Current home cardiac medications include Eliquis 5 mg twice a day, Lipitor 20 mg at night, Lasix 40 mg daily, metoprolol titrate 100 mg twice a day - Most recent echocardiogram obtained in 2020 revealed ejection fraction 50-55%, mild MR, mild TR REVIEW OF SYSTEMS: At the time of my exam: Unable to obtain the review of systems secondary to altered mental status PHYSICAL EXAM: VITAL SIGNS: Reviewed. GENERAL: Well-developed in no acute distress. HEENT: Head is normocephalic. Pupils are equal, round. Sclerae anicteric. Mucous membranes of the mouth are moist. Neck supple. No JVD or thyromegaly LUNGS: Respirations even and unlabored. Lungs essentially clear to auscultation bilaterally. HEART: Irregular rate and rhythm. S1 and S2 heard. ABDOMEN: Soft. Nondistended. Nontender. EXTREMITIES: Normal range of motion. No clubbing or cyanosis. Peripheral pulses intact. Trace bilateral lower extremity edema NEUROLOGIC: Lethargic ASSESSMENT: Sepsis Urinary tract infection Acute COVID-19 Hypotension Lactic acidosis Permanent atrial fibrillation with controlled ventricular rate Known right bundle branch block History of hypertension History of hyperlipidemia History of CVA Diabetes PLAN: Obtain 2D echo to assess cardiac structure and function Discontinue lisinopril Decrease metoprolol to 50 mg twice a day secondary to hypotension Recommend initiating Levophed drip and transfer to the intensive care unit Recommend primary medicine address CODE STATUS with family Further recommendations pending patient course Nurse practitioner note has been reviewed by physician. Signing provider agrees with the documented findings, assessment, and plan of care documented by PRODUCE SORTER as a scribe. 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 History of Any Multi-Drug Resistant Organisms: None Reported Past Surgical History: No Surgical Hx Reported Smoking Status: Never smoker Past Alcohol Use History: Daily Past Drug Use History: None Reported Medications and Allergies Home Medications Medication Instructions Recorded Confirmed Type Albuterol Inhaler [Ventolin Hfa 1 - 2 puff INHALATION RT-Q6H PRN 06/15/20 06/07/23 History Inhaler] Apixaban [Eliquis] 5 mg PO BID 06/15/20 06/07/23 History Atorvastatin [Lipitor] 20 mg PO HS 06/15/20 06/07/23 History Citalopram Hydrobromide 20 mg PO DAILY 06/15/20 06/07/23 History [Citalopram HBr] Enalapril Maleate 2.5 mg PO DAILY 06/15/20 06/07/23 History Furosemide [Lasix] 40 mg PO DAILY 06/15/20 06/07/23 History Gabapentin [Neurontin] 600 mg PO TID PRN 06/15/20 06/07/23 History HYDROcodone/APAP 5-325MG [Dilliner 1 tab PO Q6H PRN 06/15/20 06/07/23 History 5-325] Metoprolol Tartrate [Lopressor] 100 mg PO BID 06/15/20 06/07/23 History Pantoprazole Sodium [Protonix] 40 mg PO DAILY 06/15/20 06/07/23 History Tamsulosin HCl [Flomax] 0.4 mg PO DAILY 06/15/20 06/07/23 History traZODone HCL [Desyrel] 100 mg PO HS 06/15/20 06/07/23 History Ciprofloxacin HCl [Cipro] 500 mg PO Q12HR 06/07/23 06/07/23 History Semaglutide [Ozempic] 0.5 mg SQ WE 06/07/23 06/07/23 History Allergies Allergy/AdvReac Type Severity Reaction Status Date / Time No Known Allergies Allergy Verified 06/07/23 18:23 Physical Exam Vitals: Vital Signs Temp Pulse Resp BP Pulse Ox 06/08/23 07:59 80/50 06/08/23 07:41 74 16 78/50 95 06/08/23 06:00 82 16 76/49 96 06/08/23 05:35 74 16 78/56 98 06/08/23 04:00 74 16 85/54 96 06/08/23 03:36 75 18 86/56 95 06/08/23 03:00 80 16 79/55 98 06/08/23 02:30 76 15 83/54 97 06/08/23 02:00 62 16 87/59 98 06/08/23 01:30 71 18 83/55 98 06/08/23 00:50 67 16 86/57 95 06/07/23 23:00 89 16 96/63 96 06/07/23 22:30 74 18 73/42 98 06/07/23 21:00 96 18 101/73 96 06/07/23 20:15 110 H 20 124/80 06/07/23 19:05 93 20 112/91 06/07/23 19:00 98 F 104 H 18 112/91 100 06/07/23 15:37 97.4 F L 06/07/23 15:21 96 20 135/93 95 Intake and Output 06/07/23 06/08/23 06/08/23 22:59 06:59 14:59 Intake Total 24.953 2.978 Balance 24.953 2.978 Intake: Intake, IV Titration 24.953 2.978 Amount Insulin Regular 100 unit 24.953 2.978 In Sodium Chloride 0.9% 100 ml @ 0.1 UNITS/KG/HR 6.524 mls/hr IV .[id number] [facility] Rx#:[id number] Other: Weight 64.592 kg Results 06/08/23 05:00 06/08/23 05:00 Cardiac Enzymes 06/07/23 06/07/23 06/07/23 Range/Units 15:40 15:40 18:56 AST 25 (17-59) U/L Troponin I 0.032 0.032 (0.000-0.034) ng/mL 06/07/23 Range/Units 23:05 AST (17-59) U/L Troponin I 0.032 (0.000-0.034) ng/mL Coagulation 06/07/23 Range/Units 15:40 PT 16.0 H (10.0-12.5) sec APTT 26.9 (22.0-30.0) sec CBC 06/07/23 06/08/23 Range/Units 15:40 05:00 WBC 16.9 H 13.2 H (3.8-10.6) k/uL RBC 4.36 3.60 L (4.30-5.90) m/uL Hgb 15.4 12.8 L (13.0-17.5) gm/dL Hct 47.9 38.7 L (39.0-53.0) % Plt Count 328 239 (150-450) k/uL Comprehensive Metabolic Panel 06/07/23 06/07/23 06/07/23 Range/Units 15:40 18:56 23:05 Sodium 145 145 146 H (137-145) mmol/L Potassium 3.4 L 2.8 L 3.5 (3.5-5.1) mmol/L Chloride 111 H 115 H 117 H (98-107) mmol/L Carbon Dioxide 13 L 14 L 16 L (22-30) mmol/L BUN 15 15 16 (9-20) mg/dL Creatinine 1.12 1.02 1.04 (0.66-1.25) mg/dL Glucose 247 H 229 H 149 H (74-99) mg/dL Calcium 8.3 L (8.4-10.2) mg/dL AST 25 (17-59) U/L ALT 15 (4-49) U/L Alkaline Phosphatase 64 (38-126) U/L Total Protein 5.9 L (6.3-8.2) g/dL Albumin 3.2 L (3.5-5.0) g/dL 06/08/23 Range/Units 05:00 Sodium 144 (137-145) mmol/L Potassium 3.8 (3.5-5.1) mmol/L Chloride 117 H (98-107) mmol/L Carbon Dioxide 20 L (22-30) mmol/L BUN 16 (9-20) mg/dL Creatinine 0.94 (0.66-1.25) mg/dL Glucose 96 (74-99) mg/dL Calcium 7.8 L (8.4-10.2) mg/dL AST (17-59) U/L ALT (4-49) U/L Alkaline Phosphatase (38-126) U/L Total Protein (6.3-8.2) g/dL Albumin (3.5-5.0) g/dL Current Medications Generic Name Dose Route Start Last Admin Trade Name Freq PRN Reason Stop Dose Admin Acetaminophen 650 mg 06/07/23 17:12 Acetaminophen Tab 325 Mg Tab PO Q6HR PRN Mild Pain or Fever > 100.5 Hydrocodone Bitart/Acetaminophen 1 each 06/07/23 19:53 Hydrocodone/Apap 5-325mg 1 Each Tab PO Q6H PRN Pain Albuterol Sulfate 2 puff 06/08/23 05:27 Albuterol Hfa Inhaler INHALATION RT-Q6H PRN Shortness Of Breath Apixaban 5 mg 06/07/23 21:00 06/07/23 20:32 Apixaban 5 Mg Tab PO 5 mg BID JAY Administration Protocol Atorvastatin Calcium 20 mg 06/07/23 21:00 06/07/23 20:32 Atorvastatin 20 Mg Tab PO 20 mg HS JAY Administration Dextrose/Water 25 ml 06/07/23 17:02 Dextrose 50% Syringe 50 Ml IVP PER PROTOCOL PRN Hypoglycemia Protocol Dextrose/Water 50 ml 06/07/23 17:02 Dextrose 50% Syringe 50 Ml IVP PER PROTOCOL PRN Hypoglycemia Protocol Furosemide 40 mg 06/08/23 09:00 Furosemide 40 Mg Tab PO DAILY JAY Gabapentin 600 mg 06/07/23 19:53 06/07/23 20:31 Gabapentin 300 Mg Cap PO 600 mg TID PRN Administration Pain Piperacillin Sod/Tazobactam 100 mls @ 25 mls/hr 06/07/23 16:00 06/08/23 07:56 Sod 3.375 gm/ Sodium Chloride IVPB 25 mls/hr Q8HR JAY Administration Protocol Vancomycin HCl 1,250 mg/ 250 mls @ 125 mls/hr 06/08/23 09:00 Sodium Chloride IVPB DAILY [facility] Insulin Human Regular 100 unit 101 mls @ 6.524 mls/hr 06/07/23 17:15 06/08/23 04:30 / Sodium Chloride IV 0 units/kg/hr .[id number] JAY 0 mls/hr Titration Protocol 0.1 UNITS/KG/HR Sodium Chloride 1,000 mls @ 200 mls/hr 06/07/23 17:15 06/08/23 07:57 Saline 0.9% IV Not Given .Q5H [facility] Potassium Chloride/Dextrose/Sod Cl 1,000 mls @ 150 mls/hr 06/07/23 17:15 05:58 D5%-1/2ns-Kcl 20 Meq/L Iv Solution IV Not Given .Q6H40M [facility] Norepinephrine Bitartrate 4 mg 254 mls @ 7.383 mls/hr 06/08/23 08:45 / Sodium Chloride IV .Q24H [facility] Protocol 0.03 MCG/KG/MIN Lisinopril 5 mg 06/08/23 09:00 Lisinopril 5 Mg Tab PO DAILY [facility] Metoprolol Tartrate 100 mg 06/07/23 21:00 06/07/23 20:32 Metoprolol Tartrate 50 Mg Tab PO 100 mg BID JAY Administration Miscellaneous Information 1 each 06/07/23 17:02 Magnesium Replacement Protocol 1 Each Misc MISCELLANE DAILY PRN Per Protocol Protocol Miscellaneous Information 1 each 06/07/23 20:18 Potassium Replacement Protocol 1 Each Misc MISCELLANE DAILY PRN Per Protocol Protocol Naloxone HCl 0.2 mg 06/07/23 17:12 Naloxone 0.4 Mg/Ml 1 Ml Vial IV Q2M PRN Opioid Reversal Ondansetron HCl 4 mg 06/07/23 17:12 Ondansetron 4 Mg/2 Ml Vial IVP Q8HR PRN Nausea And Vomiting Pantoprazole Sodium 40 mg 06/08/23 09:00 Pantoprazole 40 Mg Tablet PO DAILY [facility] Tamsulosin HCl 0.4 mg 06/08/23 09:00 Tamsulosin 0.4 Mg Cap.Er.24h PO DAILY [facility] Trazodone HCl 100 mg 06/07/23 21:00 06/08/23 00:40 Trazodone Hcl 100 Mg Tab PO Not Given [facility] Intake and Output 06/07/23 06/08/23 06/08/23 22:59 06:59 14:59 Intake Total 24.953 2.978 Balance 24.953 2.978 Intake: Intake, IV Titration 24.953 2.978 Amount Insulin Regular 100 unit 24.953 2.978 In Sodium Chloride 0.9% 100 ml @ 0.1 UNITS/KG/HR 6.524 mls/hr IV .[id number] [facility] Rx#:[id number] Other: Weight 64.592 kg 06/08/23 05:00 06/08/23 05:00
[2023-06-08] MEDS: NOREPINEPHRINE 4 MG in SODIUM CHLORIDE 0.9% 250 ML IV SCH ×2 (09:35→21:50)
[2023-06-08 09:48] LABS: Glucose,Whole Blood 105 mg/dL (70-110)
[2023-06-08] MEDS: METOPROLOL TARTRATE 50 MG TAB PO SCH ×2 (10:04→20:19)
[2023-06-08] MEDS ORDERED: SODIUM CHLORIDE 0.9% 1,000 ML IV ONE ×2 (10:05→22:45)
[2023-06-08] MEDS ORDERED: DEXTROSE 50% SYRINGE 50 ML IVP PRN ×2 (10:20)
[2023-06-08] MEDS: APIXABAN 5 MG TAB PO SCH ×2 (10:53→20:19)
[2023-06-08] MEDS: PANTOPRAZOLE 40 MG TABLET PO SCH (10:54)
[2023-06-08] MEDS: TAMSULOSIN 0.4 MG CAP.ER.24H PO SCH (10:58)
[2023-06-08 10:59] LABS: Glucose,Whole Blood 108 mg/dL (70-110)
[2023-06-08] MEDS: INSULIN ASPART (NovoLOG) 100 UNIT/ML VIAL SQ SCH ×4 (10:59→20:19)
[2023-06-08 11:30] LABS: Glucose,Whole Blood 95 mg/dL (70-110)
--- NOTE | 2023-06-08 11:46 | XR ---
EXAMINATION TYPE: XR chest 1V portable DATE OF EXAM: 06/08/2023 Comparison: 11/29/2020 Clinical History: 82-year-old male sob Findings: Low lung volumes and crowded vascular markings. Heart borderline in size. Mild patchy bibasilar densi ty. Prominent skinfold projects at the periphery of the right mid to lower lung. No sizable pleural e ffusion. Impression: Limited by hypoventilatory changes. Some mild patchy density in the lower lungs likely areas of atele ctasis.
[2023-06-08 14:33] LABS: Glucose,Whole Blood 126 mg/dL (70-110)
--- NOTE | 2023-06-08 14:35 | P.HPIM ---
History of Present Illness H&P Date: 06/08/23 Chief Complaint: Sepsis This is a 82-year-old patient, follows with Dr. Ayaan Valdovinos. Patient was transferred to the ER from [facility] stand-alone ER on [address] . For seps is/suspected UTI. Patient had presented there with some abdominal pain. Also having loose stool every day maybe once a day. Also was in A-fib with rapid ventricular rate. Was put on Cardizem given IV fluids and started on Zosyn. CFD abdomen had revealed some nonspecific inflammatory findings. And he was transferred here. In the ER patient tested positive for COVID-19. Patient rather tired. But able to normally walk independently. Denies any fever and chills. Was positive for lactic acid in the ER and given IV fluids. I saw the patient in the trauma room. Patient only able to answer some questions slowly. Review of systems: GEN.: Tired EYES: None HEENT: None NECK: None RESPIRATORY: None CARDIOVASCULAR: None GASTROINTESTINAL: Soft abdominal pain with diarrhea GENITOURINARY: None MUSCULOSKELETAL: None LYMPHATICS: None HEMATOLOGICAL: None PSYCHIATRY: Some joint pains e NEUROLOGICAL: None Social history: Lives with his daughter. Retired. Non-smoker. History of alcohol Physical examination: VITAL SIGNS: 98, 104, 18, 1 one 2 x 91, 100% room air GENERAL: BMI 21.7, laying in bed tired a bit lethargic. EYES: Pupils equal. Conjunctiva soraya l. HEENT: External appearance of nose and ears normal, oral cavity grossly normal. NECK: JVD not raised; masses not palpable. HEART: First and second heart sounds are normal; no edema. LUNGS: Respiratory rate normal; clear to auscultation. ABDOMEN: Soft, mild tenderness, no guarding rigidity liver spleen not palpable, no masses palpable. PSYCH: [Able to answer simple questions but lethargic l. MUSCULOSKELETAL:No Clubbing/cyanosis;muscles-grossly intact. OA NEUROLOGICAL: Cranial nerves grossly intact; no facial asymmetry, power and sensation grossly intact. LYMPHATICS: No lymph nodes palpable in the axilla and neck INVESTIGATIONS, reviewed in the clinical context: White count 16.9 hemoglobin 15.4 platelets 328 sodium 145 potassium 3.4 BUN 15 creatinine 1.12 blood glucose 286 lactic acid 4.9 UA: Positive for leukoesterase WBC Serum acetone positive COVID-19 PCR: Detected [influenza type A, type B, RSV: Not detected] EKG tracing personally reviewed by me-atrial fibrillation with a rate of 103 Chest x-ray from repeated from other place- unremarkable Assessment and plan: -Probable sepsis from low-grade colitis. Patient been having abdominal pain for about 2 months with some diarrhea. IV Zosyn. IV fluids. GI services not available in the hospital. Blood culture -Lactic acidosis from above IV fluids -Acute metabolic encephalopathy from sepsis. -Atrial fibrillation with rate uncontrolled Received IV Cardizem at the outside hospital. On Lopressor at home -Diabetic ketoacidosis Insulin protocol -BPH Flomax -Diabetes mellitus type 2 , On Ozempic at home -Depression Celexa, trazodone I discussed with the ER physician. Borderline for going to the ICU, for further assessment. IV fluids. IV Zosyn. Consultation to cardiology. Clinic currently no family at the bedside. 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 History of Any Multi-Drug Resistant Organisms: None Reported Past Surgical History: No Surgical Hx Reported Smoking Status: Never smoker Past Alcohol Use History: Daily Past Drug Use History: None Reported Medications and Allergies Home Medications Medication Instructions Recorded Confirmed Type Albuterol Inhaler [Ventolin Hfa 1 - 2 puff INHALATION RT-Q6H PRN 06/15/20 06/07/23 History Inhaler] Apixaban [Eliquis] 5 mg PO BID 06/15/20 06/07/23 History Atorvastatin [Lipitor] 20 mg PO HS 06/15/20 06/07/23 History Citalopram Hydrobromide 20 mg PO DAILY 06/15/20 06/07/23 History [Citalopram HBr] Enalapril Maleate 2.5 mg PO DAILY 06/15/20 06/07/23 History Furosemide [Lasix] 40 mg PO DAILY 06/15/20 06/07/23 History Gabapentin [Neurontin] 600 mg PO TID PRN 06/15/20 06/07/23 History HYDROcodone/APAP 5-325MG [[place] 1 tab PO Q6H PRN 06/15/20 06/07/23 History 5-325] Metoprolol Tartrate [Lopressor] 100 mg PO BID 06/15/20 06/07/23 History Pantoprazole Sodium [Protonix] 40 mg PO DAILY 06/15/20 06/07/23 History Tamsulosin HCl [Flomax] 0.4 mg PO DAILY 06/15/20 06/07/23 History traZODone HCL [Desyrel] 100 mg PO HS 06/15/20 06/07/23 History Ciprofloxacin HCl [Cipro] 500 mg PO Q12HR 06/07/23 06/07/23 History Semaglutide [Ozempic] 0.5 mg SQ WE 06/07/23 06/07/23 History Allergies Allergy/AdvReac Type Severity Reaction Status Date / Time No Known Allergies Allergy Verified 06/07/23 18:23 Physical Exam Vitals: Vital Signs Temp Pulse Resp BP Pulse Ox 06/08/23 09:38 83 14 78/50 95 06/08/23 07:59 80/50 06/08/23 07:41 74 16 78/50 95 06/08/23 06:00 82 16 76/49 96 06/08/23 05:35 74 16 78/56 98 06/08/23 04:00 74 16 85/54 96 06/08/23 03:36 75 18 86/56 95 06/08/23 03:00 80 16 79/55 98 06/08/23 02:30 76 15 83/54 97 06/08/23 02:00 62 16 87/59 98 06/08/23 01:30 71 18 83/55 98 06/08/23 00:50 67 16 86/57 95 06/07/23 23:00 89 16 96/63 96 06/07/23 22:30 74 18 73/42 98 06/07/23 21:00 96 18 101/73 96 06/07/23 20:15 110 H 20 124/80 06/07/23 19:05 93 20 112/91 06/07/23 19:00 98 F 104 H 18 112/91 100 06/07/23 15:37 97.4 F L 06/07/23 15:21 96 20 135/93 95 Intake and Output 06/07/23 06/08/23 06/08/23 22:59 06:59 14:59 Intake Total 24.953 2.978 Balance 24.953 2.978 Intake: Intake, IV Titration . 2.8 Amount Insulin Regular 100 unit . 2.978 In Sodium Chloride 0.9% 100 ml @ 0.1 UNITS/KG/HR 6.524 mls/hr IV .[id number] [facility] Rx#:[id number] Other: Weight 64.592 kg Results CBC & Chem 7: 06/08/23 05:00 06/08/23 05:00 Labs: Abnormal Lab Results - Last 24 Hours (Table) 06/07/23 06/07/23 06/07/23 Range/Units 15:25 15:40 15:40 WBC 16.9 H (3.8-10.6) k/uL RBC (4.30-5.90) m/uL Hgb (13.0-17.5) gm/dL Hct (39.0-53.0) % MCV 110.0 H (80.0-100.0) fL MCH 35.4 H (25.0-35.0) pg RDW 16.2 H (11.5-15.5) % Neutrophils # 15.4 H (1.3-7.7) k/uL Lymphocytes # 0.6 L (1.0-4.8) k/uL Macrocytosis Marked A PT 16.0 H (10.0-12.5) sec INR 1.6 H (<1.2) ABG pH (7.35-7.45) ABG pCO2 (35-45) mmHg ABG HCO3 (21-25) mmol/L ABG Total CO2 (19-24) mmol/L Sodium (137-145) mmol/L Potassium (3.5-5.1) mmol/L Chloride (98-107) mmol/L Carbon Dioxide (22-30) mmol/L Glucose (74-99) mg/dL POC Glucose (mg/dL) 286 H (70-110) mg/dL Plasma Lactic Acid Peewee (0.7-2.0) mmol/L Calcium (8.4-10.2) mg/dL Total Protein (6.3-8.2) g/dL Albumin (3.5-5.0) g/dL Ur Specific [place] (1.001-1.035) Urine Protein (Negative) Urine Glucose (UA) (Negative) Urine Ketones (Negative) Urine Blood (Negative) Ur Leukocyte Esterase (Negative) Urine RBC (0-5) /hpf Urine WBC (0-5) /hpf Urine Mucus (None) /hpf Urine Yeast (Budding) (None) /hpf SARS-CoV-2 (PCR) (Not Detectd) 06/07/23 06/07/23 06/07/23 Range/Units 15:40 15:40 15:40 WBC (3.8-10.6) k/uL RBC (4.30-5.90) m/uL Hgb (13.0-17.5) gm/dL Hct (39.0-53.0) % MCV (80.0-100.0) fL MCH (25.0-35.0) pg RDW (11.5-15.5) % Neutrophils # (1.3-7.7) k/uL Lymphocytes # (1.0-4.8) k/uL Macrocytosis PT (10.0-12.5) sec INR (<1.2) ABG pH (7.35-7.45) ABG pCO2 (35-45) mmHg ABG HCO3 (21-25) mmol/L ABG Total CO2 (19-24) mmol/L Sodium (137-145) mmol/L Potassium 3.4 L (3.5-5.1) mmol/L Chloride 111 H (98-107) mmol/L Carbon Dioxide 13 L (22-30) mmol/L Glucose 247 H (74-99) mg/dL POC Glucose (mg/dL) (70-110) mg/dL Plasma Lactic Acid Peewee 4.9 H* (0.7-2.0) mmol/L Calcium 8.3 L (8.4-10.2) mg/dL Total Protein 5.9 L (6.3-8.2) g/dL Albumin 3.2 L (3.5-5.0) g/dL Ur Specific [place] 1.048 H (1.001-1.035) Urine Protein Trace H (Negative) Urine Glucose (UA) Trace H (Negative) Urine Ketones 2+ H (Negative) Urine Blood Moderate H (Negative) Ur Leukocyte Esterase Moderate H (Negative) Urine RBC 30 H (0-5) /hpf Urine WBC 23 H (0-5) /hpf Urine Mucus Rare H (None) /hpf Urine Yeast (Budding) Occasional H (None) /hpf SARS-CoV-2 (PCR) (Not Detectd) 06/07/23 06/07/23 06/07/23 Range/Units 15:40 15:53 18:15 WBC (3.8-10.6) k/uL RBC (4.30-5.90) m/uL Hgb (13.0-17.5) gm/dL Hct (39.0-53.0) % MCV (80.0-100.0) fL MCH (25.0-35.0) pg RDW (11.5-15.5) % Neutrophils # (1.3-7.7) k/uL Lymphocytes # (1.0-4.8) k/uL Macrocytosis PT (10.0-12.5) sec INR (<1.2) ABG pH 7.31 L (7.35-7.45) ABG pCO2 28 L (35-45) mmHg ABG HCO3 14 L (21-25) mmol/L ABG Total CO2 15 L (19-24) mmol/L Sodium (137-145) mmol/L Potassium (3.5-5.1) mmol/L Chloride (98-107) mmol/L Carbon Dioxide (22-30) mmol/L Glucose (74-99) mg/dL POC Glucose (mg/dL) 219 H (70-110) mg/dL Plasma Lactic Acid Peewee (0.7-2.0) mmol/L Calcium (8.4-10.2) mg/dL Total Protein (6.3-8.2) g/dL Albumin (3.5-5.0) g/dL Ur Specific [place] (1.001-1.035) Urine Protein (Negative) Urine Glucose (UA) (Negative) Urine Ketones (Negative) Urine Blood (Negative) Ur Leukocyte Esterase (Negative) Urine RBC (0-5) /hpf Urine WBC (0-5) /hpf Urine Mucus (None) /hpf Urine Yeast (Budding) (None) /hpf SARS-CoV-2 (PCR) Detected A (Not Detectd) 06/07/23 06/07/23 06/07/23 Range/Units 18:56 18:56 19:03 WBC (3.8-10.6) k/uL RBC (4.30-5.90) m/uL Hgb (13.0-17.5) gm/dL Hct (39.0-53.0) % MCV (80.0-100.0) fL MCH (25.0-35.0) pg RDW (11.5-15.5) % Neutrophils # (1.3-7.7) k/uL Lymphocytes # (1.0-4.8) k/uL Macrocytosis PT (10.0-12.5) sec INR (<1.2) ABG pH (7.35-7.45) ABG pCO2 (35-45) mmHg ABG HCO3 (21-25) mmol/L ABG Total CO2 (19-24) mmol/L Sodium (137-145) mmol/L Potassium 2.8 L (3.5-5.1) mmol/L Chloride 115 H (98-107) mmol/L Carbon Dioxide 14 L (22-30) mmol/L Glucose 229 H (74-99) mg/dL POC Glucose (mg/dL) 219 H (70-110) mg/dL Plasma Lactic Acid Peewee 3.4 H* (0.7-2.0) mmol/L Calcium (8.4-10.2) mg/dL Total Protein (6.3-8.2) g/dL Albumin (3.5-5.0) g/dL Ur Specific [place] (1.001-1.035) Urine Protein (Negative) Urine Glucose (UA) (Negative) Urine Ketones (Negative) Urine Blood (Negative) Ur Leukocyte Esterase (Negative) Urine RBC (0-5) /hpf Urine WBC (0-5) /hpf Urine Mucus (None) /hpf Urine Yeast (Budding) (None) /hpf SARS-CoV-2 (PCR) (Not Detectd) 06/07/23 06/07/23 06/07/23 Range/Units 20:21 21:38 22:34 WBC (3.8-10.6) k/uL RBC (4.30-5.90) m/uL Hgb (13.0-17.5) gm/dL Hct (39.0-53.0) % MCV (80.0-100.0) fL MCH (25.0-35.0) pg RDW (11.5-15.5) % Neutrophils # (1.3-7.7) k/uL Lymphocytes # (1.0-4.8) k/uL Macrocytosis PT (10.0-12.5) sec INR (<1.2) ABG pH (7.35-7.45) ABG pCO2 (35-45) mmHg ABG HCO3 (21-25) mmol/L ABG Total CO2 (19-24) mmol/L Sodium (137-145) mmol/L Potassium (3.5-5.1) mmol/L Chloride (98-107) mmol/L Carbon Dioxide (22-30) mmol/L Glucose (74-99) mg/dL POC Glucose (mg/dL) 186 H 149 H 118 H (70-110) mg/dL Plasma Lactic Acid Peewee (0.7-2.0) mmol/L Calcium (8.4-10.2) mg/dL Total Protein (6.3-8.2) g/dL Albumin (3.5-5.0) g/dL Ur Specific [place] (1.001-1.035) Urine Protein (Negative) Urine Glucose (UA) (Negative) Urine Ketones (Negative) Urine Blood (Negative) Ur Leukocyte Esterase (Negative) Urine RBC (0-5) /hpf Urine WBC (0-5) /hpf Urine Mucus (None) /hpf Urine Yeast (Budding) (None) /hpf SARS-CoV-2 (PCR) (Not Detectd) 06/07/23 06/07/23 06/08/23 Range/Units 23:05 23:05 02:18 WBC (3.8-10.6) k/uL RBC (4.30-5.90) m/uL Hgb (13.0-17.5) gm/dL Hct (39.0-53.0) % MCV (80.0-100.0) fL MCH (25.0-35.0) pg RDW (11.5-15.5) % Neutrophils # (1.3-7.7) k/uL Lymphocytes # (1.0-4.8) k/uL Macrocytosis PT (10.0-12.5) sec INR (<1.2) ABG pH (7.35-7.45) ABG pCO2 (35-45) mmHg ABG HCO3 (21-25) mmol/L ABG Total CO2 (19-24) mmol/L Sodium 146 H (137-145) mmol/L Potassium (3.5-5.1) mmol/L Chloride 117 H (98-107) mmol/L Carbon Dioxide 16 L (22-30) mmol/L Glucose 149 H (74-99) mg/dL POC Glucose (mg/dL) (70-110) mg/dL Plasma Lactic Acid Peewee 5.6 H* 4.2 H* (0.7-2.0) mmol/L Calcium (8.4-10.2) mg/dL Total Protein (6.3-8.2) g/dL Albumin (3.5-5.0) g/dL Ur Specific [place] (1.001-1.035) Urine Protein (Negative) Urine Glucose (UA) (Negative) Urine Ketones (Negative) Urine Blood (Negative) Ur Leukocyte Esterase (Negative) Urine RBC (0-5) /hpf Urine WBC (0-5) /hpf Urine Mucus (None) /hpf Urine Yeast (Budding) (None) /hpf SARS-CoV-2 (PCR) (Not Detectd) 06/08/23 06/08/23 06/08/23 Range/Units 05:00 05:00 05:00 WBC 13.2 H (3.8-10.6) k/uL RBC 3.60 L (4.30-5.90) m/uL Hgb 12.8 L (13.0-17.5) gm/dL Hct 38.7 L (39.0-53.0) % MCV 107.6 H (80.0-100.0) fL MCH 35.6 H (25.0-35.0) pg RDW 15.9 H (11.5-15.5) % Neutrophils # 11.2 H (1.3-7.7) k/uL Lymphocytes # (1.0-4.8) k/uL Macrocytosis Marked A PT (10.0-12.5) sec INR (<1.2) ABG pH (7.35-7.45) ABG pCO2 (35-45) mmHg ABG HCO3 (21-25) mmol/L ABG Total CO2 (19-24) mmol/L Sodium (137-145) mmol/L Potassium (3.5-5.1) mmol/L Chloride 117 H (98-107) mmol/L Carbon Dioxide 20 L (22-30) mmol/L Glucose (74-99) mg/dL POC Glucose (mg/dL) (70-110) mg/dL Plasma Lactic Acid Peewee 3.3 H* (0.7-2.0) mmol/L Calcium 7.8 L (8.4-10.2) mg/dL Total Protein (6.3-8.2) g/dL Albumin (3.5-5.0) g/dL Ur Specific [place] (1.001-1.035) Urine Protein (Negative) Urine Glucose (UA) (Negative) Urine Ketones (Negative) Urine Blood (Negative) Ur Leukocyte Esterase (Negative) Urine RBC (0-5) /hpf Urine WBC (0-5) /hpf Urine Mucus (None) /hpf Urine Yeast (Budding) (None) /hpf SARS-CoV-2 (PCR) (Not Detectd) 06/08/23 Range/Units 09:21 WBC (3.8-10.6) k/uL RBC (4.30-5.90) m/uL Hgb (13.0-17.5) gm/dL Hct (39.0-53.0) % MCV (80.0-100.0) fL MCH (25.0-35.0) pg RDW (11.5-15.5) % Neutrophils # (1.3-7.7) k/uL Lymphocytes # (1.0-4.8) k/uL Macrocytosis PT (10.0-12.5) sec INR (<1.2) ABG pH (7.35-7.45) ABG pCO2 (35-45) mmHg ABG HCO3 (21-25) mmol/L ABG Total CO2 (19-24) mmol/L Sodium (137-145) mmol/L Potassium (3.5-5.1) mmol/L Chloride (98-107) mmol/L Carbon Dioxide (22-30) mmol/L Glucose (74-99) mg/dL POC Glucose (mg/dL) (70-110) mg/dL Plasma Lactic Acid Peewee 4.3 H* (0.7-2.0) mmol/L Calcium (8.4-10.2) mg/dL Total Protein (6.3-8.2) g/dL Albumin (3.5-5.0) g/dL Ur Specific [place] (1.001-1.035) Urine Protein (Negative) Urine Glucose (UA) (Negative) Urine Ketones (Negative) Urine Blood (Negative) Ur Leukocyte Esterase (Negative) Urine RBC (0-5) /hpf Urine WBC (0-5) /hpf Urine Mucus (None) /hpf Urine Yeast (Budding) (None) /hpf SARS-CoV-2 (PCR) (Not Detectd)
--- NOTE | 2023-06-08 14:45 | P.PN ---
Progress Note - Text Progress Note Date: 06/08/23 Chief Complaint: Sepsis This is a 82-year-old patient, follows with Dr. Ayaan Valdovinos. Patient was transferred to the ER from [facility] stand-alone ER on [address] . For sepsis/suspected UTI. Patient had presented there with some abdominal pain. Also having loose stool every day maybe once a day. Also was in A-fib with rapid ventricular rate. Was put on Cardizem given IV fluids and started on Zosyn. CFD abdomen had revealed some nonspecific inflammatory findings. And he was transferred here. In the ER patient tested positive for COVID-19. Patient rather tired. But able to normally walk independently. Denies any fever and chills. Was positive for lactic acid in the ER and given IV fluids. I saw the patient in the trauma room. Patient only able to answer some questions slowly. June 08, 2023: This morning patient became hypotensive. DKA had resolved. Placed on sliding scale. Patient to be moved to the ICU. Compressor Operator Portable consulted. IV fluids. Started on Levophed. Sliding scale insulin. Active Medications Acetaminophen (Acetaminophen Tab 325 Mg Tab) 650 mg PO Q6HR PRN PRN Reason: Mild Pain or Fever > 100.5 Hydrocodone Bitart/Acetaminophen (Hydrocodone/Apap 5-325mg 1 Each Tab) 1 each PO Q6H PRN PRN Reason: Pain Albuterol Sulfate (Albuterol Hfa Inhaler) 2 puff INHALATION RT-Q6H PRN PRN Reason: Shortness Of Breath Apixaban (Apixaban 5 Mg Tab) 5 mg PO BID JAY; Protocol Last Admin: 06/08/23 10:53 Dose: 5 mg Atorvastatin Calcium (Atorvastatin 20 Mg Tab) 20 mg PO HS [facility] Last Admin: 06/07/23 20:32 Dose: 20 mg Dextrose/Water (Dextrose 50% Syringe 50 Ml) 25 ml IVP PER PROTOCOL PRN; Protocol PRN Reason: Hypoglycemia Dextrose/Water (Dextrose 50% Syringe 50 Ml) 50 ml IVP PER PROTOCOL PRN; Protocol PRN Reason: Hypoglycemia Dextrose/Water (Dextrose 50% Syringe 50 Ml) 25 ml IVP PER PROTOCOL PRN; Protocol PRN Reason: Hypoglycemia Dextrose/Water (Dextrose 50% Syringe 50 Ml) 50 ml IVP PER PROTOCOL PRN; Protocol PRN Reason: Hypoglycemia Gabapentin (Gabapentin 300 Mg Cap) 600 mg PO TID PRN PRN Reason: Pain Last Admin: 06/07/23 20:31 Dose: 600 mg Piperacillin Sod/Tazobactam (Sod 3.375 gm/ Sodium Chloride) 100 mls @ 25 mls/hr IVPB Q8HR [facility]; Protocol Last Admin: 06/08/23 07:56 Dose: 25 mls/hr Sodium Chloride (Saline 0.9%) 1,000 mls @ 200 mls/hr IV .Q5H [facility] Last Admin: 06/08/23 13:42 Dose: Not Given Potassium Chloride/Dextrose/Sod Cl (D5%-1/2ns-Kcl 20 Meq/L Iv Solution) 1,000 mls @ 50 mls/hr IV .Q20H [facility] Last Admin: 06/08/23 09:36 Dose: 150 mls/hr Norepinephrine Bitartrate 4 mg (/ Sodium Chloride) 254 mls @ 7.383 mls/hr IV .Q24H [facility]; Protocol Last Titration: 06/08/23 10:25 Dose: 0.05 mcg/kg/min, 12.305 mls/hr Insulin Aspart (Insulin Aspart (Novolog) 100 Unit/Ml Vial) 0 unit SQ ACHS [facility]; Protocol Last Admin: 06/08/23 13:36 Dose: Not Given Metoprolol Tartrate (Metoprolol Tartrate 50 Mg Tab) 50 mg PO BID [facility] Miscellaneous Information (Magnesium Replacement Protocol 1 Each Misc) 1 each MISCELLANE DAILY PRN; Protocol PRN Reason: Per Protocol Miscellaneous Information (Potassium Replacement Protocol 1 Each Misc) 1 each MISCELLANE DAILY PRN; Protocol PRN Reason: Per Protocol Naloxone HCl (Naloxone 0.4 Mg/Ml 1 Ml Vial) 0.2 mg IV Q2M PRN PRN Reason: Opioid Reversal Ondansetron HCl (Ondansetron 4 Mg/2 Ml Vial) 4 mg IVP Q8HR PRN PRN Reason: Nausea And Vomiting Pantoprazole Sodium (Pantoprazole 40 Mg Tablet) 40 mg PO DAILY [facility] Last Admin: 06/08/23 10:54 Dose: 40 mg Tamsulosin HCl (Tamsulosin 0.4 Mg Cap.Er.24h) 0.4 mg PO DAILY [facility] Last Admin: 06/08/23 10:58 Dose: Not Given Trazodone HCl (Trazodone Hcl 100 Mg Tab) 100 mg PO HS [facility] Last Admin: 06/08/23 00:40 Dose: Not Given Social history: Lives with his daughter. Retired. Non-smoker. History of alcohol Physical examination: VITAL SIGNS:. 74, 16, 78/50, 95% room air GENERAL: Laying in bed, tired EYES: Pupils equal. Conjunctiva soraya l. HEENT: External appearance of nose and ears normal, oral cavity grossly normal. NECK: JVD not raised; masses not palpable. HEART: First and second heart sounds are normal; no edema. LUNGS: Respiratory rate normal; clear to auscultation. ABDOMEN: Soft, mild tenderness, no guarding rigidity liver spleen not palpable, no masses palpable. PSYCH: [Able to answer simple questions but lethargic MUSCULOSKELETAL:No Clubbing/cyanosis;muscles-grossly intact. OA INVESTIGATIONS, reviewed in the clinical context: White count 16.9 hemoglobin 15.4 platelets 328 sodium 145 potassium 3.4 BUN 15 creatinine 1.12 blood glucose 286 lactic acid 4.9 UA: Positive for leukoesterase WBC Serum acetone positive COVID-19 PCR: Detected [influenza type A, type B, RSV: Not detected] EKG tracing personally reviewed by me-atrial fibrillation with a rate of 103 Chest x-ray from repeated from other place- unremarkable Assessment and plan: -Septic shock IV Levophed. IV Zosyn. IV fluids -sepsis from low-grade colitis. Patient been having abdominal pain for about 2 months with some diarrhea. IV Zosyn. IV fluids. GI services not available in the hospital. Blood culture -Lactic acidosis from above IV fluids -Acute metabolic encephalopathy from sepsis. -Atrial fibrillation with rate uncontrolled Received IV Cardizem at the outside hospital. Lopressor per cardiology -Diabetic ketoacidosis: Resolved -BPH Flomax -Diabetes mellitus type 2 , On Ozempic. Accu-Cheks with sliding scale -Depression Celexa, trazodone -Hyperlipidemia Lipitor ICU. Critical. Follow-up with cardiology, refrigeration system installer. 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
--- NOTE | 2023-06-08 14:54 | P.CNPUL ---
History of Present Illness Consult date: 06/08/23 Requesting physician: Nestor Dinh Reason for consult: other (Sepsis, and ICU admission with hypotension) Chief complaint: Abdominal pain History of present illness: This is an 82-year-old white male with history of multiple medical problems including recurrent urinary tract infections, hypertension, dyslipidemia, chronic atrial fibrillation/permanent, patient was seen at the emergency room in [facility] on [address], and he was noted to have urinary tract infection, hypotension, and possible sepsis. Patient was also in atrial fibrillation with controlled ventricular rate. Blood pressure was low, hence the patient was transferred from the ER to our ER for further evaluation. I saw this patient in the ER, he is not a great historian, however I discussed his condition with the daughter at bedside, apparently the patient presented with abdominal pain to the ER, and has been experiencing loose stool every day at least once a day. Considering patient was noted to be in atrial fibrillation with RVR upon presentation, patient was given fluids, patient was placed on Zosyn, CT of the abdomen and pelvis showed nonspecific inflammatory findings. When I saw the patient in the ER he was hypotensive, I recommended more fluid boluses, recommended norepinephrine and I recommended admission to the ICU labs were reviewed, patient had leukocytosis with WBC of 16.9, ABG showed a pO2 of 95 pCO2 28 pH of 7.31 bicarb 16 with anion gap of 13, however follow-up basic metabolic profile showed anion gap down to 7 and carbon dioxide of 20. Renal profile was noted to be relatively normal lactic acid on admission was 5.6 follow-up lactic acid was 4.1 BNP level was over 5000. Troponin 0.032. Chest x-ray showed mostly atelectasis at the bases, no evidence of pulmonary edema. Review of Systems REVIEW OF SYSTEMS: CONSTITUTIONAL: Weakness, fatigue, chronic EYES: Negative. ENT: Negative. CARDIAC: Patient has chronic permanent atrial fibrillation PULMONARY: Denies any shortness of breath, as a matter fact patient is on room air GI: As noted in HPI mostly loose stools and vague abdominal pain GENITOURINARY: As noted in HPI MUSCULOSKELETAL: Negative. SKIN: Negative. NEUROPSYCH: Negative. ENDOCRINE: 3 of diabetes. HEMATOLOGIC: Negative. 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 History of Any Multi-Drug Resistant Organisms: None Reported Past Surgical History: No Surgical Hx Reported Past Anesthesia/Blood Transfusion Reactions: No Reported Reaction Smoking Status: Never smoker Past Alcohol Use History: Daily Past Drug Use History: None Reported Medications and Allergies Home Medications Medication Instructions Recorded Confirmed Type Albuterol Inhaler [Ventolin Hfa 1 - 2 puff INHALATION RT-Q6H PRN 06/15/20 06/07/23 History Inhaler] Apixaban [Eliquis] 5 mg PO BID 06/15/20 06/07/23 History Atorvastatin [Lipitor] 20 mg PO HS 06/15/20 06/07/23 History Citalopram Hydrobromide 20 mg PO DAILY 06/15/20 06/07/23 History [Citalopram HBr] Enalapril Maleate 2.5 mg PO DAILY 06/15/20 06/07/23 History Furosemide [Lasix] 40 mg PO DAILY 06/15/20 06/07/23 History Gabapentin [Neurontin] 600 mg PO TID PRN 06/15/20 06/07/23 History HYDROcodone/APAP 5-325MG [[place] 1 tab PO Q6H PRN 06/15/20 06/07/23 History 5-325] Metoprolol Tartrate [Lopressor] 100 mg PO BID 06/15/20 06/07/23 History Pantoprazole Sodium [Protonix] 40 mg PO DAILY 06/15/20 06/07/23 History Tamsulosin HCl [Flomax] 0.4 mg PO DAILY 06/15/20 06/07/23 History traZODone HCL [Desyrel] 100 mg PO HS 06/15/20 06/07/23 History Ciprofloxacin HCl [Cipro] 500 mg PO Q12HR 06/07/23 06/07/23 History Semaglutide [Ozempic] 0.5 mg SQ WE 06/07/23 06/07/23 History Allergies Allergy/AdvReac Type Severity Reaction Status Date / Time No Known Allergies Allergy Verified 06/07/23 18:23 Physical Exam Vitals: Vital Signs Temp Pulse Resp BP Pulse Ox 06/08/23 14:00 95.3 F L 70 15 89/55 100 06/08/23 13:45 80 15 97/65 06/08/23 13:30 75 22 105/79 06/08/23 13:15 85 16 102/72 100 06/08/23 13:00 82 91/68 80 L 06/08/23 12:45 76 12 91/71 100 06/08/23 12:30 66 18 92/67 97 06/08/23 12:15 82 16 92/67 100 06/08/23 12:00 90 12 100/68 100 06/08/23 11:45 76 13 100/68 06/08/23 11:34 20 06/08/23 11:20 77 14 104/73 99 06/08/23 10:34 77 14 98/63 99 06/08/23 09:38 83 14 78/50 95 06/08/23 07:59 80/50 06/08/23 07:41 74 16 78/50 95 06/08/23 06:00 82 16 76/49 96 06/08/23 05:35 74 16 78/56 98 06/08/23 04:00 74 16 85/54 96 06/08/23 03:36 75 18 86/56 95 06/08/23 03:00 80 16 79/55 98 06/08/23 02:30 76 15 83/54 97 06/08/23 02:00 62 16 87/59 98 06/08/23 01:30 71 18 83/55 98 06/08/23 00:50 67 16 86/57 95 06/07/23 23:00 89 16 96/63 96 06/07/23 22:30 74 18 73/42 98 06/07/23 21:00 96 18 101/73 96 06/07/23 20:15 110 H 20 124/80 06/07/23 19:05 93 20 112/91 06/07/23 19:00 98 F 104 H 18 112/91 100 06/07/23 15:37 97.4 F L 06/07/23 15:21 96 20 135/93 95 Intake and Output 06/07/23 06/08/23 06/08/23 22:59 06:59 14:59 Intake Total 24.953 2.978 56.891 Balance 24.953 2.978 56.891 Intake: IV 50 D5-0.45% NaCl with KCl 50 20Meq/l 1,000 ml @ 50 mls /hr IV .Q20H JAY Rx#: [id number] Intake, IV Titration 24.953 2.978 6.891 Amount Insulin Regular 100 unit 24.953 2.978 In Sodium Chloride 0.9% 100 ml @ 0.1 UNITS/KG/HR 6.524 mls/hr IV .[id number] JAY Rx#:[id number] Norepinephrine 4 mg In 6.891 Sodium Chloride 0.9% 250 ml @ 0.03 MCG/KG/MIN 7. 383 mls/hr IV .Q24H JAY Rx#:[id number] Other: # Voids 2 Weight 64.592 kg 64.592 kg General: 82-year-old white male in no distress, on room air Skin: Skin is warm and dry and no rashes or lesions are noted. Dry skin noted. Eye: Pupils are equal, round and reactive to light, extra-ocular movements are intact; there is normal conjunctiva bilaterally. Ears, nose, mouth and throat: There are moist mucous membranes and no oral lesions. Neck: The neck is supple, there is no tenderness or JVD. Cardiovascular: Irregular irregular rhythm 2/6 systolic murmur throughout the precordium Respiratory: Diminished breath sound bilaterally no crackles rhonchi or wheezes Gastrointestinal: Soft nontender no megaly no rebound no guarding. Musculoskeletal: No limitation range of motion no deformity Neurological: No gross focal neurologic deficit. Patient seems to be generally weak and confused at times Psychiatric: Flat affect, normal mood, confused Results - Laboratory Findings CBC and BMP: 06/08/23 05:00 06/08/23 05:00 ABG ABG pH 7.31 (7.35-7.45) L 06/07/23 15:53 ABG pCO2 28 mmHg (35-45) L 06/07/23 15:53 ABG pO2 95 mmHg (83-108) 06/07/23 15:53 ABG O2 Saturation 96.9 % (94-97) 06/07/23 15:53 PT/INR, D-dimer PT 16.0 sec (10.0-12.5) H 06/07/23 15:40 INR 1.6 (<1.2) H 06/07/23 15:40 Abnormal lab findings: Abnormal Labs 06/07/23 06/07/23 06/07/23 15:25 15:40 15:40 WBC 16.9 H RBC Hgb Hct MCV 110.0 H MCH 35.4 H RDW 16.2 H Neutrophils # 15.4 H Lymphocytes # 0.6 L Macrocytosis Marked A PT 16.0 H INR 1.6 H ABG pH ABG pCO2 ABG HCO3 ABG Total CO2 Sodium Potassium Chloride Carbon Dioxide Glucose POC Glucose (mg/dL) 286 H Plasma Lactic Acid [place] Calcium Total Protein Albumin Ur Specific [place] Urine Protein Urine Glucose (UA) Urine Ketones Urine Blood Ur Leukocyte Esterase Urine RBC Urine WBC Urine Mucus Urine Yeast (Budding) SARS-CoV-2 (PCR) 06/07/23 06/07/23 06/07/23 15:40 15:40 15:40 WBC RBC Hgb Hct MCV MCH RDW Neutrophils # Lymphocytes # Macrocytosis PT INR ABG pH ABG pCO2 ABG HCO3 ABG Total CO2 Sodium Potassium 3.4 L Chloride 111 H Carbon Dioxide 13 L Glucose 247 H POC Glucose (mg/dL) Plasma Lactic Acid [place] 4.9 H* Calcium 8.3 L Total Protein 5.9 L Albumin 3.2 L Ur Specific [place] 1.048 H Urine Protein Trace H Urine Glucose (UA) Trace H Urine Ketones 2+ H Urine Blood Moderate H Ur Leukocyte Esterase Moderate H Urine RBC 30 H Urine WBC 23 H Urine Mucus Rare H Urine Yeast (Budding) Occasional H SARS-CoV-2 (PCR) 06/07/23 06/07/23 06/07/23 15:40 15:53 18:15 WBC RBC Hgb Hct MCV MCH RDW Neutrophils # Lymphocytes # Macrocytosis PT INR ABG pH 7.31 L ABG pCO2 28 L ABG HCO3 14 L ABG Total CO2 15 L Sodium Potassium Chloride Carbon Dioxide Glucose POC Glucose (mg/dL) 219 H Plasma Lactic Acid [place] Calcium Total Protein Albumin Ur Specific [place] Urine Protein Urine Glucose (UA) Urine Ketones Urine Blood Ur Leukocyte Esterase Urine RBC Urine WBC Urine Mucus Urine Yeast (Budding) SARS-CoV-2 (PCR) Detected A 06/07/23 06/07/23 06/07/23 18:56 18:56 19:03 WBC RBC Hgb Hct MCV MCH RDW Neutrophils # Lymphocytes # Macrocytosis PT INR ABG pH ABG pCO2 ABG HCO3 ABG Total CO2 Sodium Potassium 2.8 L Chloride 115 H Carbon Dioxide 14 L Glucose 229 H POC Glucose (mg/dL) 219 H Plasma Lactic Acid [place] 3.4 H* Calcium Total Protein Albumin Ur Specific [place] Urine Protein Urine Glucose (UA) Urine Ketones Urine Blood Ur Leukocyte Esterase Urine RBC Urine WBC Urine Mucus Urine Yeast (Budding) SARS-CoV-2 (PCR) 06/07/23 06/07/23 06/07/23 20:21 21:38 22:34 WBC RBC Hgb Hct MCV MCH RDW Neutrophils # Lymphocytes # Macrocytosis PT INR ABG pH ABG pCO2 ABG HCO3 ABG Total CO2 Sodium Potassium Chloride Carbon Dioxide Glucose POC Glucose (mg/dL) 186 H 149 H 118 H Plasma Lactic Acid [place] Calcium Total Protein Albumin Ur Specific [place] Urine Protein Urine Glucose (UA) Urine Ketones Urine Blood Ur Leukocyte Esterase Urine RBC Urine WBC Urine Mucus Urine Yeast (Budding) SARS-CoV-2 (PCR) 06/07/23 06/07/23 06/08/23 23:05 23:05 02:18 WBC RBC Hgb Hct MCV MCH RDW Neutrophils # Lymphocytes # Macrocytosis PT INR ABG pH ABG pCO2 ABG HCO3 ABG Total CO2 Sodium 146 H Potassium Chloride 117 H Carbon Dioxide 16 L Glucose 149 H POC Glucose (mg/dL) Plasma Lactic Acid [place] 5.6 H* 4.2 H* Calcium Total Protein Albumin Ur Specific [place] Urine Protein Urine Glucose (UA) Urine Ketones Urine Blood Ur Leukocyte Esterase Urine RBC Urine WBC Urine Mucus Urine Yeast (Budding) SARS-CoV-2 (PCR) 06/08/23 06/08/23 06/08/23 05:00 05:00 05:00 WBC 13.2 H RBC 3.60 L Hgb 12.8 L Hct 38.7 L MCV 107.6 H MCH 35.6 H RDW 15.9 H Neutrophils # 11.2 H Lymphocytes # Macrocytosis Marked A PT INR ABG pH ABG pCO2 ABG HCO3 ABG Total CO2 Sodium Potassium Chloride 117 H Carbon Dioxide 20 L Glucose POC Glucose (mg/dL) Plasma Lactic Acid [place] 3.3 H* Calcium 7.8 L Total Protein Albumin Ur Specific [place] Urine Protein Urine Glucose (UA) Urine Ketones Urine Blood Ur Leukocyte Esterase Urine RBC Urine WBC Urine Mucus Urine Yeast (Budding) SARS-CoV-2 (PCR) 06/08/23 06/08/23 06/08/23 09:21 12:11 14:32 WBC RBC Hgb Hct MCV MCH RDW Neutrophils # Lymphocytes # Macrocytosis PT INR ABG pH ABG pCO2 ABG HCO3 ABG Total CO2 Sodium Potassium Chloride Carbon Dioxide Glucose POC Glucose (mg/dL) 126 H Plasma Lactic Acid [place] 4.3 H* 4.1 H* Calcium Total Protein Albumin Ur Specific [place] Urine Protein Urine Glucose (UA) Urine Ketones Urine Blood Ur Leukocyte Esterase Urine RBC Urine WBC Urine Mucus Urine Yeast (Budding) SARS-CoV-2 (PCR) - Diagnostic Findings Chest x-ray: image reviewed (No evidence of active disease as noted in HPI) Assessment and Plan Assessment: Impression: Acute sepsis, likely sources could be related to his urinary tract infection or colitis Acute diabetic ketoacidosis, resolved with IV fluids Acute lactic acidosis secondary to above Permanent atrial fibrillation, rate controlled at present Benign prostatic hyperplasia Type 2 diabetes History of depression Benign essential hypertension Dyslipidemia History of CVA/TIA 2017. Recommendation: Seen in the ER and admitted to ICU Continue fluid boluses and IV fluids Norepinephrine and titrate accordingly Continue Eliquis 5 mg twice daily Agree with Zosyn for now until cultures of the blood and urine are available Radiology to see on consultation for atrial fibrillation Strict monitoring of I's and O's and daily weight Continue metoprolol 50 mg twice daily, however hold if the patient is hypotensive and on norepinephrine GI prophylaxis/Protonix Check urine and blood cultures Hold lisinopril because of low blood pressure Close monitoring of sugars and address accordingly Discussed CODE STATUS with daughter at bedside, patient is presently full code Will continue to follow-up Time with Patient: Greater than 30
--- NOTE | 2023-06-08 16:15 | P.GSCN ---
History of Present Illness Consult date: 06/08/23 Reason for Consult: Difficult Antonio catheter placement, urinary retention History of present illness: This is an 82-year-old male admitted to the ICU with sepsis. Patient required a Antonio catheter placement for accurate I's and O's. Additionally patient has been having low urine output. Attempt to place a Antonio catheter by the nursing staff was unsuccessful secondary to patient's significant phimosis. Patient was a poor historian thus a limited history was obtained. No known history of urinary retention or difficulty voiding at baseline. No gross hematuria or dysuria. 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 History of Any Multi-Drug Resistant Organisms: None Reported Past Surgical History: No Surgical Hx Reported Past Anesthesia/Blood Transfusion Reactions: No Reported Reaction Smoking Status: Never smoker Past Alcohol Use History: Daily Past Drug Use History: None Reported Medications and Allergies Home Medications Medication Instructions Recorded Confirmed Type Albuterol Inhaler [Ventolin Hfa 1 - 2 puff INHALATION RT-Q6H PRN 06/15/20 06/07/23 History Inhaler] Apixaban [Eliquis] 5 mg PO BID 06/15/20 06/07/23 History Atorvastatin [Lipitor] 20 mg PO HS 06/15/20 06/07/23 History Citalopram Hydrobromide 20 mg PO DAILY 06/15/20 06/07/23 History [Citalopram HBr] Enalapril Maleate 2.5 mg PO DAILY 06/15/20 06/07/23 History Furosemide [Lasix] 40 mg PO DAILY 06/15/20 06/07/23 History Gabapentin [Neurontin] 600 mg PO TID PRN 06/15/20 06/07/23 History HYDROcodone/APAP 5-325MG [Sneads 1 tab PO Q6H PRN 06/15/20 06/07/23 History 5-325] Metoprolol Tartrate [Lopressor] 100 mg PO BID 06/15/20 06/07/23 History Pantoprazole Sodium [Protonix] 40 mg PO DAILY 06/15/20 06/07/23 History Tamsulosin HCl [Flomax] 0.4 mg PO DAILY 06/15/20 06/07/23 History traZODone HCL [Desyrel] 100 mg PO HS 06/15/20 06/07/23 History Ciprofloxacin HCl [Cipro] 500 mg PO Q12HR 06/07/23 06/07/23 History Semaglutide [Ozempic] 0.5 mg SQ WE 06/07/23 06/07/23 History Allergies Allergy/AdvReac Type Severity Reaction Status Date / Time No Known Allergies Allergy Verified 06/07/23 18:23 Surgical - Exam Vital Signs Pulse Resp BP Pulse Ox 96 20 135/93 95 06/07/23 15:21 06/07/23 15:21 06/07/23 15:21 06/07/23 15:21 - General no distress, no pain - Eyes normal ocular movement, no pale - ENT normal nares, normal mucosa - Respiratory normal expansion, normal respiratory effort - Abdomen Abdomen: soft, non tender - Genitourinary Significant phimosis unable to retract the foreskin to visualize the glans Results - Labs 06/08/23 05:00 06/08/23 05:00 Abnormal Lab Results - Last 24 Hours (Table) 06/07/23 06/07/23 06/07/23 Range/Units 15:40 15:40 15:40 WBC 16.9 H (3.8-10.6) k/uL RBC (4.30-5.90) m/uL Hgb (13.0-17.5) gm/dL Hct (39.0-53.0) % MCV 110.0 H (80.0-100.0) fL MCH 35.4 H (25.0-35.0) pg RDW 16.2 H (11.5-15.5) % Neutrophils # 15.4 H (1.3-7.7) k/uL Lymphocytes # 0.6 L (1.0-4.8) k/uL Macrocytosis Marked A PT 16.0 H (10.0-12.5) sec INR 1.6 H (<1.2) Sodium (137-145) mmol/L Potassium 3.4 L (3.5-5.1) mmol/L Chloride 111 H (98-107) mmol/L Carbon Dioxide 13 L (22-30) mmol/L Glucose 247 H (74-99) mg/dL POC Glucose (mg/dL) (70-110) mg/dL Plasma Lactic Acid Peewee (0.7-2.0) mmol/L Calcium 8.3 L (8.4-10.2) mg/dL Total Protein 5.9 L (6.3-8.2) g/dL Albumin 3.2 L (3.5-5.0) g/dL Ur Specific Morris (1.001-1.035) Urine Protein (Negative) Urine Glucose (UA) (Negative) Urine Ketones (Negative) Urine Blood (Negative) Ur Leukocyte Esterase (Negative) Urine RBC (0-5) /hpf Urine WBC (0-5) /hpf Urine Mucus (None) /hpf Urine Yeast (Budding) (None) /hpf SARS-CoV-2 (PCR) (Not Detectd) 06/07/23 06/07/23 06/07/23 Range/Units 15:40 15:40 15:40 WBC (3.8-10.6) k/uL RBC (4.30-5.90) m/uL Hgb (13.0-17.5) gm/dL Hct (39.0-53.0) % MCV (80.0-100.0) fL MCH (25.0-35.0) pg RDW (11.5-15.5) % Neutrophils # (1.3-7.7) k/uL Lymphocytes # (1.0-4.8) k/uL Macrocytosis PT (10.0-12.5) sec INR (<1.2) Sodium (137-145) mmol/L Potassium (3.5-5.1) mmol/L Chloride (98-107) mmol/L Carbon Dioxide (22-30) mmol/L Glucose (74-99) mg/dL POC Glucose (mg/dL) (70-110) mg/dL Plasma Lactic Acid Peewee 4.9 H* (0.7-2.0) mmol/L Calcium (8.4-10.2) mg/dL Total Protein (6.3-8.2) g/dL Albumin (3.5-5.0) g/dL Ur Specific Morris 1.048 H (1.001-1.035) Urine Protein Trace H (Negative) Urine Glucose (UA) Trace H (Negative) Urine Ketones 2+ H (Negative) Urine Blood Moderate H (Negative) Ur Leukocyte Esterase Moderate H (Negative) Urine RBC 30 H (0-5) /hpf Urine WBC 23 H (0-5) /hpf Urine Mucus Rare H (None) /hpf Urine Yeast (Budding) Occasional H (None) /hpf SARS-CoV-2 (PCR) Detected A (Not Detectd) 06/07/23 06/07/23 06/07/23 Range/Units 18:15 18:56 18:56 WBC (3.8-10.6) k/uL RBC (4.30-5.90) m/uL Hgb (13.0-17.5) gm/dL Hct (39.0-53.0) % MCV (80.0-100.0) fL MCH (25.0-35.0) pg RDW (11.5-15.5) % Neutrophils # (1.3-7.7) k/uL Lymphocytes # (1.0-4.8) k/uL Macrocytosis PT (10.0-12.5) sec INR (<1.2) Sodium (137-145) mmol/L Potassium 2.8 L (3.5-5.1) mmol/L Chloride 115 H (98-107) mmol/L Carbon Dioxide 14 L (22-30) mmol/L Glucose 229 H (74-99) mg/dL POC Glucose (mg/dL) 219 H (70-110) mg/dL Plasma Lactic Acid Peewee 3.4 H* (0.7-2.0) mmol/L Calcium (8.4-10.2) mg/dL Total Protein (6.3-8.2) g/dL Albumin (3.5-5.0) g/dL Ur Specific Morris (1.001-1.035) Urine Protein (Negative) Urine Glucose (UA) (Negative) Urine Ketones (Negative) Urine Blood (Negative) Ur Leukocyte Esterase (Negative) Urine RBC (0-5) /hpf Urine WBC (0-5) /hpf Urine Mucus (None) /hpf Urine Yeast (Budding) (None) /hpf SARS-CoV-2 (PCR) (Not Detectd) 06/07/23 06/07/23 06/07/23 Range/Units 19:03 20:21 21:38 WBC (3.8-10.6) k/uL RBC (4.30-5.90) m/uL Hgb (13.0-17.5) gm/dL Hct (39.0-53.0) % MCV (80.0-100.0) fL MCH (25.0-35.0) pg RDW (11.5-15.5) % Neutrophils # (1.3-7.7) k/uL Lymphocytes # (1.0-4.8) k/uL Macrocytosis PT (10.0-12.5) sec INR (<1.2) Sodium (137-145) mmol/L Potassium (3.5-5.1) mmol/L Chloride (98-107) mmol/L Carbon Dioxide (22-30) mmol/L Glucose (74-99) mg/dL POC Glucose (mg/dL) 219 H 186 H 149 H (70-110) mg/dL Plasma Lactic Acid Peewee (0.7-2.0) mmol/L Calcium (8.4-10.2) mg/dL Total Protein (6.3-8.2) g/dL Albumin (3.5-5.0) g/dL Ur Specific Morris (1.001-1.035) Urine Protein (Negative) Urine Glucose (UA) (Negative) Urine Ketones (Negative) Urine Blood (Negative) Ur Leukocyte Esterase (Negative) Urine RBC (0-5) /hpf Urine WBC (0-5) /hpf Urine Mucus (None) /hpf Urine Yeast (Budding) (None) /hpf SARS-CoV-2 (PCR) (Not Detectd) 06/07/23 06/07/23 06/07/23 Range/Units 22:34 23:05 23:05 WBC (3.8-10.6) k/uL RBC (4.30-5.90) m/uL Hgb (13.0-17.5) gm/dL Hct (39.0-53.0) % MCV (80.0-100.0) fL MCH (25.0-35.0) pg RDW (11.5-15.5) % Neutrophils # (1.3-7.7) k/uL Lymphocytes # (1.0-4.8) k/uL Macrocytosis PT (10.0-12.5) sec INR (<1.2) Sodium 146 H (137-145) mmol/L Potassium (3.5-5.1) mmol/L Chloride 117 H (98-107) mmol/L Carbon Dioxide 16 L (22-30) mmol/L Glucose 149 H (74-99) mg/dL POC Glucose (mg/dL) 118 H (70-110) mg/dL Plasma Lactic Acid Peewee 5.6 H* (0.7-2.0) mmol/L Calcium (8.4-10.2) mg/dL Total Protein (6.3-8.2) g/dL Albumin (3.5-5.0) g/dL Ur Specific Morris (1.001-1.035) Urine Protein (Negative) Urine Glucose (UA) (Negative) Urine Ketones (Negative) Urine Blood (Negative) Ur Leukocyte Esterase (Negative) Urine RBC (0-5) /hpf Urine WBC (0-5) /hpf Urine Mucus (None) /hpf Urine Yeast (Budding) (None) /hpf SARS-CoV-2 (PCR) (Not Detectd) 06/08/23 06/08/23 06/08/23 Range/Units 02:18 05:00 05:00 WBC 13.2 H (3.8-10.6) k/uL RBC 3.60 L (4.30-5.90) m/uL Hgb 12.8 L (13.0-17.5) gm/dL Hct 38.7 L (39.0-53.0) % MCV 107.6 H (80.0-100.0) fL MCH 35.6 H (25.0-35.0) pg RDW 15.9 H (11.5-15.5) % Neutrophils # 11.2 H (1.3-7.7) k/uL Lymphocytes # (1.0-4.8) k/uL Macrocytosis Marked A PT (10.0-12.5) sec INR (<1.2) Sodium (137-145) mmol/L Potassium (3.5-5.1) mmol/L Chloride 117 H (98-107) mmol/L Carbon Dioxide 20 L (22-30) mmol/L Glucose (74-99) mg/dL POC Glucose (mg/dL) (70-110) mg/dL Plasma Lactic Acid Peewee 4.2 H* (0.7-2.0) mmol/L Calcium 7.8 L (8.4-10.2) mg/dL Total Protein (6.3-8.2) g/dL Albumin (3.5-5.0) g/dL Ur Specific Morris (1.001-1.035) Urine Protein (Negative) Urine Glucose (UA) (Negative) Urine Ketones (Negative) Urine Blood (Negative) Ur Leukocyte Esterase (Negative) Urine RBC (0-5) /hpf Urine WBC (0-5) /hpf Urine Mucus (None) /hpf Urine Yeast (Budding) (None) /hpf SARS-CoV-2 (PCR) (Not Detectd) 06/08/23 06/08/23 06/08/23 Range/Units 05:00 09:21 12:11 WBC (3.8-10.6) k/uL RBC (4.30-5.90) m/uL Hgb (13.0-17.5) gm/dL Hct (39.0-53.0) % MCV (80.0-100.0) fL MCH (25.0-35.0) pg RDW (11.5-15.5) % Neutrophils # (1.3-7.7) k/uL Lymphocytes # (1.0-4.8) k/uL Macrocytosis PT (10.0-12.5) sec INR (<1.2) Sodium (137-145) mmol/L Potassium (3.5-5.1) mmol/L Chloride (98-107) mmol/L Carbon Dioxide (22-30) mmol/L Glucose (74-99) mg/dL POC Glucose (mg/dL) (70-110) mg/dL Plasma Lactic Acid Peewee 3.3 H* 4.3 H* 4.1 H* (0.7-2.0) mmol/L Calcium (8.4-10.2) mg/dL Total Protein (6.3-8.2) g/dL Albumin (3.5-5.0) g/dL Ur Specific Morris (1.001-1.035) Urine Protein (Negative) Urine Glucose (UA) (Negative) Urine Ketones (Negative) Urine Blood (Negative) Ur Leukocyte Esterase (Negative) Urine RBC (0-5) /hpf Urine WBC (0-5) /hpf Urine Mucus (None) /hpf Urine Yeast (Budding) (None) /hpf SARS-CoV-2 (PCR) (Not Detectd) 06/08/23 Range/Units 14:32 WBC (3.8-10.6) k/uL RBC (4.30-5.90) m/uL Hgb (13.0-17.5) gm/dL Hct (39.0-53.0) % MCV (80.0-100.0) fL MCH (25.0-35.0) pg RDW (11.5-15.5) % Neutrophils # (1.3-7.7) k/uL Lymphocytes # (1.0-4.8) k/uL Macrocytosis PT (10.0-12.5) sec INR (<1.2) Sodium (137-145) mmol/L Potassium (3.5-5.1) mmol/L Chloride (98-107) mmol/L Carbon Dioxide (22-30) mmol/L Glucose (74-99) mg/dL POC Glucose (mg/dL) 126 H (70-110) mg/dL Plasma Lactic Acid Peewee (0.7-2.0) mmol/L Calcium (8.4-10.2) mg/dL Total Protein (6.3-8.2) g/dL Albumin (3.5-5.0) g/dL Ur Specific Morris (1.001-1.035) Urine Protein (Negative) Urine Glucose (UA) (Negative) Urine Ketones (Negative) Urine Blood (Negative) Ur Leukocyte Esterase (Negative) Urine RBC (0-5) /hpf Urine WBC (0-5) /hpf Urine Mucus (None) /hpf Urine Yeast (Budding) (None) /hpf SARS-CoV-2 (PCR) (Not Detectd) Diabetes panel 06/07/23 06/07/23 06/07/23 Range/Units 15:40 18:56 23:05 Sodium 145 145 146 H (137-145) mmol/L Potassium 3.4 L 2.8 L 3.5 (3.5-5.1) mmol/L Chloride 111 H 115 H 117 H (98-107) mmol/L Carbon Dioxide 13 L 14 L 16 L (22-30) mmol/L BUN 15 15 16 (9-20) mg/dL Creatinine 1.12 1.02 1.04 (0.66-1.25) mg/dL Glucose 247 H 229 H 149 H (74-99) mg/dL Calcium 8.3 L (8.4-10.2) mg/dL AST 25 (17-59) U/L ALT 15 (4-49) U/L Alkaline Phosphatase 64 (38-126) U/L Total Protein 5.9 L (6.3-8.2) g/dL Albumin 3.2 L (3.5-5.0) g/dL 06/08/23 Range/Units 05:00 Sodium 144 (137-145) mmol/L Potassium 3.8 (3.5-5.1) mmol/L Chloride 117 H (98-107) mmol/L Carbon Dioxide 20 L (22-30) mmol/L BUN 16 (9-20) mg/dL Creatinine 0.94 (0.66-1.25) mg/dL Glucose 96 (74-99) mg/dL Calcium 7.8 L (8.4-10.2) mg/dL AST (17-59) U/L ALT (4-49) U/L Alkaline Phosphatase (38-126) U/L Total Protein (6.3-8.2) g/dL Albumin (3.5-5.0) g/dL Calcium panel 06/07/23 06/07/23 06/07/23 Range/Units 15:40 18:56 23:05 Calcium 8.3 L (8.4-10.2) mg/dL Phosphorus 3.0 3.2 (2.5-4.5) mg/dL Albumin 3.2 L (3.5-5.0) g/dL 06/08/23 Range/Units 05:00 Calcium 7.8 L (8.4-10.2) mg/dL Phosphorus (2.5-4.5) mg/dL Albumin (3.5-5.0) g/dL Pituitary panel 06/07/23 06/07/23 06/07/23 Range/Units 15:40 18:56 23:05 Sodium 145 145 146 H (137-145) mmol/L Potassium 3.4 L 2.8 L 3.5 (3.5-5.1) mmol/L Chloride 111 H 115 H 117 H (98-107) mmol/L Carbon Dioxide 13 L 14 L 16 L (22-30) mmol/L BUN 15 15 16 (9-20) mg/dL Creatinine 1.12 1.02 1.04 (0.66-1.25) mg/dL Glucose 247 H 229 H 149 H (74-99) mg/dL Calcium 8.3 L (8.4-10.2) mg/dL 06/08/23 Range/Units 05:00 Sodium 144 (137-145) mmol/L Potassium 3.8 (3.5-5.1) mmol/L Chloride 117 H (98-107) mmol/L Carbon Dioxide 20 L (22-30) mmol/L BUN 16 (9-20) mg/dL Creatinine 0.94 (0.66-1.25) mg/dL Glucose 96 (74-99) mg/dL Calcium 7.8 L (8.4-10.2) mg/dL Adrenal panel 06/07/23 06/07/23 06/07/23 Range/Units 15:40 18:56 23:05 Sodium 145 145 146 H (137-145) mmol/L Potassium 3.4 L 2.8 L 3.5 (3.5-5.1) mmol/L Chloride 111 H 115 H 117 H (98-107) mmol/L Carbon Dioxide 13 L 14 L 16 L (22-30) mmol/L BUN 15 15 16 (9-20) mg/dL Creatinine 1.12 1.02 1.04 (0.66-1.25) mg/dL Glucose 247 H 229 H 149 H (74-99) mg/dL Calcium 8.3 L (8.4-10.2) mg/dL Total Bilirubin 1.1 (0.2-1.3) mg/dL AST 25 (17-59) U/L ALT 15 (4-49) U/L Alkaline Phosphatase 64 (38-126) U/L Total Protein 5.9 L (6.3-8.2) g/dL Albumin 3.2 L (3.5-5.0) g/dL 06/08/23 Range/Units 05:00 Sodium 144 (137-145) mmol/L Potassium 3.8 (3.5-5.1) mmol/L Chloride 117 H (98-107) mmol/L Carbon Dioxide 20 L (22-30) mmol/L BUN 16 (9-20) mg/dL Creatinine 0.94 (0.66-1.25) mg/dL Glucose 96 (74-99) mg/dL Calcium 7.8 L (8.4-10.2) mg/dL Total Bilirubin (0.2-1.3) mg/dL AST (17-59) U/L ALT (4-49) U/L Alkaline Phosphatase (38-126) U/L Total Protein (6.3-8.2) g/dL Albumin (3.5-5.0) g/dL Assessment and Plan Assessment: 82-year-old male admitted to the ICU for sepsis, Antonio catheter was required to monitor his accurate I's and O's. Nursing staff unable to place a Antonio catheter secondary to phimosis. -16 [place] Citizen Antonio catheter was placed, -catheter can be removed when no longer needed by the primary
--- NOTE | 2023-06-08 16:16 | P.PCN ---
Date of Procedure: 06/08/23 Preoperative Diagnosis: Phimosis Postoperative Diagnosis: Same Procedure(s) Performed: Antonio catheter placed Description of Procedure: Patient penis was prepped with Betadine, I made multiple attempts to retract the foreskin but patient had significant phimosis. At this time a 16 [place] silicone catheter was advanced through the foreskin opening, I was able to manipulate the catheter into the urethral meatus and advanced into the bladder with return of clear urine. Patient tolerated procedure well
[2023-06-08] MEDS: CITALOPRAM HYDROBROMIDE 20 MG TAB PO SCH (17:00)
[2023-06-08 17:22] LABS: Glucose,Whole Blood 192 mg/dL (70-110)
--- NOTE | 2023-06-08 18:52 | CA ---
Transthoracic Echo Report Name: Artemio Antonio Age: 82 Gender: M : 1940 Exam Date: 06/08/2023 13:20 Exam Location: [facility] Ht (in): 68 Wt (lb): 142 Ordering Physician: Marie Ellington Attending/Referring Phys: [id number], Rakel Heel Breaster Sirena Pedroza RDCS Procedure CPT: Indications: LV function, atrial fibrillation, sepsis Cardiac Hx: Technical Quality: Fair Contrast 1: Total Dose (mL): Contrast 2: Total Dose (mL): MEASUREMENTS (Male / Female) Normal Values 2D ECHO LV Diastolic Diameter PLAX 3.0 cm 4.2 - 5.9 / 3.9 - 5.3 cm LV Systolic Diameter PLAX 2.5 cm IVS Diastolic Thickness 1.3 cm 0.6 - 1.0 / 0.6 - 0.9 cm LVPW Diastolic Thickness 1.2 cm 0.6 - 1.0 / 0.6 - 0.9 cm LV Relative Wall Thickness 0.9 RV Internal Dim ED PLAX 2.6 cm LA Volume 67.8 cm??? 18 - 58 / 22 - 52 cm??? LA Volume Index 38.6 cm???/m??? 16 - 28 cm???/m??? M-MODE Aortic Root Diameter MM 3.7 cm AV Cusp Separation MM 1.7 cm DOPPLER AV Peak Velocity 84.7 cm/s AV Peak Gradient 2.9 mmHg AV Mean Velocity 55.1 cm/s AV Mean Gradient 1.4 mmHg AV Velocity Time Integral 12.8 cm LVOT Peak Velocity 54.4 cm/s LVOT Peak Gradient 1.2 mmHg LVOT Velocity Time Integral 10.4 cm MV Area PHT 5.0 cm??? Mitral E Point Velocity 110.9 cm/s Mitral A Point Velocity 0.2 cm/s Mitral E to A Ratio 649.7 MV Deceleration Time 152.0 ms MV E' Velocity 4.5 cm/s Mitral E to MV E' Ratio 24.8 TR Peak Velocity 247.0 cm/s TR Peak Gradient 24.4 mmHg Right Ventricular Systolic Press 28.8 mmHg FINDINGS Left Ventricle Mildly increased left ventricular wall thickness. Left ventricular cavity size normal. No obvious regional wall motion abnormalities. Left ventricular ejection fraction is estimated at 55-60 %. Right Ventricle Normal right ventricular size and function. Normal right ventricular size and function. Right Atrium Normal right atrial size. Left Atrium Mildly increased left atrial volume. Mildly increased left atrial area. Mitral Valve Structurally normal mitral valve. Mitral valve thickened. Mild mitral annular calcification. moderate mitral regurgitation. Posteriorly directed mitral regurgitation jet. Aortic Valve Trileaflet aortic valve. Thickened aortic valve without stenosis. No aortic regurgitation. Tricuspid Valve Structurally normal tricuspid valve. Mild tricuspid regurgitation. Pulmonic Valve Structurally normal pulmonic valve. Pericardium No pericardial effusion. Aorta Normal size aortic root and proximal ascending aorta. CONCLUSIONS Normal LV systolic function Thickened mitral valve leaflets with at least moderate mitral regurgitation and posteriorly directed jet Previewed by: Dr. Prabhjot Thompson MD (Electronically Signed) Final Date: 08 June 2023 18:52
[2023-06-08 20:18] LABS: Glucose,Whole Blood 153 mg/dL (70-110)
[2023-06-08] MEDS: ATORVASTATIN 20 MG TAB PO SCH (20:19)
[2023-06-09] MEDS: PIPERACILLIN-TAZOBACTAM 3.375 GM in SODIUM CHLORIDE 0.9% 100 ML IVPB SCH ×3 (00:04→16:54)
[2023-06-09] MEDS: SODIUM CHLORIDE 0.9% 1,000 ML IV SCH ×3 (03:26→20:51)
[2023-06-09] MEDS: NOREPINEPHRINE 4 MG in SODIUM CHLORIDE 0.9% 250 ML IV SCH ×2 (03:26→20:49)
[2023-06-09 04:48] LABS: African American GFR (CKD) >90 (>60 ml/min/1.73 sqM); Anion Gap 7 mmol/L; Blood Urea Nitrogen 10 mg/dL (9-20); Calcium 7.8 mg/dL (8.4-10.2); Carbon Dioxide 14 mmol/L (22-30); Chloride 125 mmol/L (98-107); Glucose 85 mg/dL (74-99); Magnesium 1.3 mg/dL (1.6-2.3); Non-African American GFR(CKD) 78 (>60 ml/min/1.73 sqM); Potassium 2.8 mmol/L (3.5-5.1); Sodium 146 mmol/L (137-145)
[2023-06-09 05:04] LABS: Anisocytosis Slight; HCT 26.7 % (39.0-53.0); Hypochromasia Marked; MCH 35.2 pg (25.0-35.0); Macrocytosis Marked; Mean Platelet Volume 8.1; Platelet Count 159 k/uL (150-450); RBC 2.42 m/uL (4.30-5.90); RDW 16.5 % (11.5-15.5)
[2023-06-09 05:12] LABS: HGB 8.5 gm/dL (13.0-17.5)
[2023-06-09] MEDS ORDERED: Magnesium Replacement Protocol 1 EACH MISC MISCELLANE PRN (05:25)
[2023-06-09] MEDS: POTASSIUM CHLORIDE ER 20 MEQ TAB.ER PO SCH ×3 (05:35→08:30)
[2023-06-09 05:40] LABS: Glucose,Whole Blood 111 mg/dL (70-110)
[2023-06-09] MEDS: INSULIN ASPART (NovoLOG) 100 UNIT/ML VIAL SQ SCH ×4 (05:41→21:36)
[2023-06-09] MEDS: MAGNESIUM SULFATE-D5W PMX 1 GM in DEXTROSE/WATER 1 100ML.BAG IVPB SCH ×4 (05:41→09:42)
[2023-06-09 06:10] LABS: Eosinophils # (M) 0.09 k/uL (0-0.7); Lymphocytes # (M) 0.81 k/uL (1.0-4.8); Monocytes # (M) 0.18 k/uL (0-1.0); Neutrophils % (M) 90 %; Nucleated Red Blood Cells 0 /100 WBC (0-0); Total Cells Counted 200
[2023-06-09] MEDS: APIXABAN 5 MG TAB PO SCH ×2 (08:30→20:56)
[2023-06-09] MEDS: PANTOPRAZOLE 40 MG TABLET PO SCH (08:30)
[2023-06-09] MEDS: METOPROLOL TARTRATE 50 MG TAB PO SCH ×2 (08:31→20:56)
[2023-06-09] MEDS: CITALOPRAM HYDROBROMIDE 20 MG TAB PO SCH (08:31)
--- NOTE | 2023-06-09 09:10 | XR ---
EXAMINATION TYPE: XR chest 1V portable DATE OF EXAM: 06/09/2023 COMPARISON: 06/08/2023 INDICATION: CHF TECHNIQUE: Single frontal view of the chest is obtained. FINDINGS: The heart size is normal. The pulmonary vasculature is normal. The lungs are clear. IMPRESSION: 1. No acute pulmonary process.
--- NOTE | 2023-06-09 09:24 | PN ---
PROGRESS NOTE SUBJECTIVE: This is an 82-year-old gentleman with history of diabetes, hypertension, CVA, and permanent atrial fibrillation, who presented to hospital with hypotension and sepsis. His initial EKG revealed atrial fibrillation with controlled ventricular rate. CT brain showed a large old right-sided infarct and we were consulted because of his atrial fibrillation and hypotension. The patient remains in atrial fibrillation with controlled ventricular rate. An echocardiogram showed normal LV systolic function with moderate mitral regurgitation. Labs showed hemoglobin of 8.5. CURRENT MEDICATIONS: Include Eliquis 5 b.i.d., Lopressor 50 b.i.d., and Levophed. OBJECTIVE: VITAL SIGNS: Heart rate is 80 beats per minute, blood pressure is 92/50, and respiratory rate is 18. CHEST: Reveals diminished air entry at the bases. HEART: Reveals first and second heart sounds, irregular rhythm. EXTREMITIES: Did not reveal any edema. Peripheral pulses are felt. ASSESSMENT: 1. Permanent atrial fibrillation. 2. Sepsis with hypertension. PLAN: Will continue current measures. Continue the anticoagulant. MMODL / IJN: [id number] /
[2023-06-09] MEDS: SODIUM BICARBONATE TAB 650 MG TAB PO SCH ×2 (09:48→20:56)
[2023-06-09] MEDS: TAMSULOSIN 0.4 MG CAP.ER.24H PO SCH (09:48)
[2023-06-09 11:43] LABS: Glucose,Whole Blood 137 mg/dL (70-110)
[2023-06-09 12:30] LABS: Appearance,Urine Cloudy (Clear); Bilirubin,Urine Negative (Negative); Blood,Urine Large (Negative); Budding Yeast,Urine Few /hpf; Color,Urine Light Yellow; Glucose,Urine (UA) Negative (Negative); Hyphae Yeast, Urine Rare /hpf; Ketones,Urine Negative (Negative); Leukocyte Esterase,Urine Moderate (Negative); Mucus,Urine Rare /hpf; Nitrite,Urine Negative (Negative); Protein,Urine Negative (Negative); RBC,Urine >182 /hpf (0-5); Specific Gravity,Urine 1.011 (1.001-1.035); Squamous Epithelial Cell,Urine 1 /hpf (0-4); Urobilinogen,Urine <2.0 mg/dL (<2.0); WBC,Urine 22 /hpf (0-5)
--- NOTE | 2023-06-09 13:11 | P.PN ---
Subjective Progress Note Date: 06/09/23 Principal diagnosis: Acute sepsis/septic shock This is an 82-year-old white male with history of multiple medical problems including recurrent urinary tract infections, hypertension, dyslipidemia, chronic atrial fibrillation/permanent, patient was seen at the emergency room in [facility] on [address], and he was noted to have urinary tract infection, hypotension, and possible sepsis. Patient was also in atrial fibrillation with controlled ventricular rate. Blood pressure was low, hence the patient was transferred from the ER to our ER for further evaluation. I saw this patient in the ER, he is not a great historian, however I discussed his condition with the daughter at bedside, apparently the patient presented with abdominal pain to the ER, and has been experiencing loose stool every day at least once a day. Considering patient was noted to be in atrial fibrillation with RVR upon presentation, patient was given fluids, patient was placed on Zosyn, CT of the a bdomen and pelvis showed nonspecific inflammatory findings. When I saw the patient in the ER he was hypotensive, I recommended more fluid boluses, recommended norepinephrine and I recommended admission to the ICU labs were reviewed, patient had leukocytosis with WBC of 16.9, ABG showed a pO2 of 95 pCO2 28 pH of 7.31 bicarb 16 with anion gap of 13, however follow-up basic metabolic profile showed anion gap down to 7 and carbon dioxide of 20. Renal profile was noted to be relatively normal lactic acid on admission was 5.6 follow-up lactic acid was 4.1 BNP level was over 5000. Troponin 0.032. Chest x-ray showed mostly atelectasis at the bases, no evidence of pulmonary edema. Was reevaluated today on 06/09/2023, patient remains in the ICU, I saw him yesterday in consultation and recommended ICU admission patient was in the ER at the time. Remains on norepinephrine at 0.08 mcg/kg/min remains on IV fluid 0.9 normal saline at 120 cc/h remains on oral bicarb for his metabolic acidosis rem ains on Zosyn empirically and he is on Eliquis for his atrial fibrillation. Last night the patient developed hypotension received fluid boluses and received norepinephrine which has been tapered down to 0.08, patient has good urine output today, blood cultures are negative so far, urine cultures are pending. Patient is on room air, and he is not in any distress WBC count is 9 hemoglobin 8.5 renal profile is normal with BUN of 10 creatinine 0.9 bicarb remains low at 14, patient has hyperchloremic metabolic acidosisnone anion gap. Chest x-ray this morning showed no evidence of pneumonia and no evidence of congestive heart failure. Patient remains in atrial fibrillation but rate seems to be fairly well-controlled this morning being followed by cardiology echocardiogram recently showed normal systolic left ventricular function, but he does have moderate mitral regurgitation Objective - Vital Signs Vital signs: Vital Signs Temp 99.1 F 06/09/23 08:00 Pulse 83 06/09/23 12:15 Resp 10 L 06/09/23 12:15 BP 95/66 06/09/23 12:15 Pulse Ox 100 06/09/23 12:15 FiO2 Intake & Output 06/08/23 06/09/23 06/09/23 18:59 06:59 18:59 Intake Total 420.551 1140.462 945.339 Output Total 335 635 255 Balance 804.354 2262.462 690.339 Weight 64.592 kg 74.7 kg Intake: IV 450 2679 630 D5-0.45% NaCl with KCl 200 20Meq/l 1,000 ml @ 50 mls /hr IV .Q20H [facility]AY Rx#: [id number] Magnesium Sulfate-D5w Pmx 200 200 1 gm In Dextrose/Water 1 100ml.bag @ 100 mls/hr IVPB Q1H [facility] Rx#: [id number] Piperacillin-Tazobactam 3 100 100 100 .375 gm In Sodium Chloride 0.9% 100 ml @ 25 mls/hr IVPB Q8HR [facility] Rx# :[id number] Sodium Chloride 0.9% 1, 150 1380 330 000 ml @ 120 mls/hr IV . Q8H20M JAY Rx#:[id number] Sodium Chloride 0.9% 1, 999 000 ml @ 999 mls/hr IV . Q1H1M ONE Rx#:[id number] Intake, IV Titration 6.891 459.462 115.339 Amount Norepinephrine 4 mg In 6.891 459.462 115.339 Sodium Chloride 0.9% 250 ml @ 0.03 MCG/KG/MIN 7. 383 mls/hr IV .Q24H JAY Rx#:[id number] Oral 150 200 Output: Urine 335 635 255 Other: Voiding Method Diaper Diaper # Voids 2 # Bowel Movements 1 - Exam General: 82-year-old white male in no distress, on room air Skin: Skin is warm and dry and no rashes or lesions are noted. Dry skin noted. Eye: Pupils are equal, round and reactive to light, extra-ocular movements are intact; there is normal conjunctiva bilaterally. Ears, nose, mouth and throat: There are moist mucous membranes and no oral lesions. Neck: The neck is supple, there is no tenderness or JVD. Cardiovascular: Irregular irregular rhythm 2/6 systolic murmur throughout the precordium Respiratory: Diminished breath sound bilaterally no crackles rhonchi or wheezes Gastrointestinal: Soft nontender no megaly no rebound no guarding. Musculoskeletal: No limitation range of motion no deformity Neurological: No gross focal neurologic deficit. No further confusion noted today Psychiatric: Flat affect, normal mood, normal mental status examination - Labs CBC & Chem 7: 06/09/23 04:56 06/09/23 03:50 Labs: Abnormal Lab Results - Last 24 Hours (Table) 06/08/23 06/08/23 06/08/23 Range/Units 14:32 16:06 17:20 RBC (4.30-5.90) m/uL Hgb (13.0-17.5) gm/dL Hct (39.0-53.0) % MCV (80.0-100.0) fL MCH (25.0-35.0) pg RDW (11.5-15.5) % Neutrophils # (Manual) (1.3-7.7) k/uL Lymphocytes # (Manual) (1.0-4.8) k/uL Macrocytosis Sodium (137-145) mmol/L Potassium (3.5-5.1) mmol/L Chloride (98-107) mmol/L Carbon Dioxide (22-30) mmol/L POC Glucose (mg/dL) 126 H 192 H (70-110) mg/dL Plasma Lactic Acid Peewee 3.1 H* (0.7-2.0) mmol/L Calcium (8.4-10.2) mg/dL Magnesium (1.6-2.3) mg/dL Urine Blood (Negative) Ur Leukocyte Esterase (Negative) Urine RBC (0-5) /hpf Urine WBC (0-5) /hpf Urine Mucus (None) /hpf Urine Yeast (Budding) (None) /hpf 06/08/23 06/09/23 06/09/23 Range/Units 20:17 03:50 04:56 RBC 2.42 L (4.30-5.90) m/uL Hgb 8.5 L D (13.0-17.5) gm/dL Hct 26.7 L (39.0-53.0) % MCV 110.0 H (80.0-100.0) fL MCH 35.2 H (25.0-35.0) pg RDW 16.5 H (11.5-15.5) % Neutrophils # (Manual) 8.10 H (1.3-7.7) k/uL Lymphocytes # (Manual) 0.81 L (1.0-4.8) k/uL Macrocytosis Marked A Sodium 146 H (137-145) mmol/L Potassium 2.8 L (3.5-5.1) mmol/L Chloride 125 H (98-107) mmol/L Carbon Dioxide 14 L (22-30) mmol/L POC Glucose (mg/dL) 153 H (70-110) mg/dL Plasma Lactic Acid Peewee (0.7-2.0) mmol/L Calcium 7.8 L (8.4-10.2) mg/dL Magnesium 1.3 L (1.6-2.3) mg/dL Urine Blood (Negative) Ur Leukocyte Esterase (Negative) Urine RBC (0-5) /hpf Urine WBC (0-5) /hpf Urine Mucus (None) /hpf Urine Yeast (Budding) (None) /hpf 06/09/23 06/09/23 06/09/23 Range/Units 05:39 11:30 11:42 RBC (4.30-5.90) m/uL Hgb (13.0-17.5) gm/dL Hct (39.0-53.0) % MCV (80.0-100.0) fL MCH (25.0-35.0) pg RDW (11.5-15.5) % Neutrophils # (Manual) (1.3-7.7) k/uL Lymphocytes # (Manual) (1.0-4.8) k/uL Macrocytosis Sodium (137-145) mmol/L Potassium (3.5-5.1) mmol/L Chloride (98-107) mmol/L Carbon Dioxide (22-30) mmol/L POC Glucose (mg/dL) 111 H 137 H (70-110) mg/dL Plasma Lactic Acid Peewee (0.7-2.0) mmol/L Calcium (8.4-10.2) mg/dL Magnesium (1.6-2.3) mg/dL Urine Blood Large H (Negative) Ur Leukocyte Esterase Moderate H (Negative) Urine RBC >182 H (0-5) /hpf Urine WBC 22 H (0-5) /hpf Urine Mucus Rare H (None) /hpf Urine Yeast (Budding) Few H (None) /hpf Microbiology - Last 24 Hours (Table) 06/07/23 15:45 Blood Culture - Preliminary Blood 06/07/23 16:00 Blood Culture - Preliminary Blood Assessment and Plan Assessment: Impression: Acute sepsis,/septic shock likely sources could be related to his urinary tract infection or colitis Acute diabetic ketoacidosis, resolved with IV fluids Acute lactic acidosis secondary to above Permanent atrial fibrillation, rate controlled at present Benign prostatic hyperplasia Type 2 diabetes History of depression Benign essential hypertension Dyslipidemia History of CVA/TIA 2017. Recommendation: Continue IV fluid at 125 cc/h Continue norepinephrine and titrate accordingly Continue Eliquis 5 mg twice daily Continue Zosyn, check blood cultures and urine cultures again Continue Eliquis Continue to monitor daily I's and O's and labs including renal profile and electrolytes Cardiology to address atrial fibrillation and his metoprolol dosing GI prophylaxis/Protonix Hold lisinopril because of low blood pressure Close monitoring of sugars and address accordingly Continue to monitor in the ICU Remains critically ill. Critical care time over 30-minute Will continue to follow-up Time with Patient: Greater than 30
--- NOTE | 2023-06-09 15:02 | P.PN ---
Progress Note - Text Progress Note Date: 06/09/23 Chief Complaint: Sepsis This is a 82-year-old patient, follows with Dr. Ayaan Valdovinos. Patient was transferred to the ER from [facility] stand-alone ER on [address] . For sepsis/suspected UTI. Patient had presented there with some abdominal pain. Also having loose stool every day maybe once a day. Also was in A-fib with rapid ventricular rate. Was put on Cardizem given IV fluids and started on Zosyn. CFD abdomen had revealed some nonspecific inflammatory findings. And he was transferred here. In the ER patient tested positive for COVID-19. Patient rather tired. But able to normally walk independently. Denies any fever and chills. Was positive for lactic acid in the ER and given IV fluids. I saw the patient in the trauma room. Patient only able to answer some questions slowly. June 08, 2023: This morning patient became hypotensive. DKA had resolved. Placed on sliding scale. Patient to be moved to the ICU. Cold Roller consulted. IV fluids. Started on Levophed. Sliding scale insulin. June 09, 2023: ICU. Daughter Yamileth at the bedside. Medical POA. She now tells me that patient is nonambulatory. Does use a wheelchair. Chronic left- sided weakness. Eating very little. Remains on IV Levophed. Atrial fibrillation rate controlled. IV Zosyn. Patient been having loose watery 2 bowel movements a day for some time. CODE STATUS discussed with the daughter at the bedside. Made DNR. Active Medications Acetaminophen (Acetaminophen Tab 325 Mg Tab) 650 mg PO Q6HR PRN PRN Reason: Mild Pain or Fever > 100.5 Hydrocodone Bitart/Acetaminophen (Hydrocodone/Apap 5-325mg 1 Each Tab) 1 each PO Q6H PRN PRN Reason: Pain Albuterol Sulfate (Albuterol Hfa Inhaler) 2 puff INHALATION RT-Q6H PRN PRN Reason: Shortness Of Breath Apixaban (Apixaban 5 Mg Tab) 5 mg PO BID JAY; Protocol Last Admin: 06/09/23 08:30 Dose: 5 mg Atorvastatin Calcium (Atorvastatin 20 Mg Tab) 20 mg PO HS [facility] Last Admin: 06/08/23 20:19 Dose: 20 mg Citalopram Hydrobromide (Citalopram Hydrobromide 20 Mg Tab) 20 mg PO DAILY [facility] Last Admin: 06/09/23 08:31 Dose: 20 mg Dextrose/Water (Dextrose 50% Syringe 50 Ml) 25 ml IVP PER PROTOCOL PRN; Protocol PRN Reason: Hypoglycemia Dextrose/Water (Dextrose 50% Syringe 50 Ml) 25 ml IVP PER PROTOCOL PRN; Protocol PRN Reason: Hypoglycemia Dextrose/Water (Dextrose 50% Syringe 50 Ml) 50 ml IVP PER PROTOCOL PRN; Protocol PRN Reason: Hypoglycemia Gabapentin (Gabapentin 300 Mg Cap) 600 mg PO TID PRN PRN Reason: Pain Last Admin: 06/07/23 20:31 Dose: 600 mg Piperacillin Sod/Tazobactam (Sod 3.375 gm/ Sodium Chloride) 100 mls @ 25 mls/hr IVPB Q8HR [facility]; Protocol Last Admin: 06/09/23 08:30 Dose: 25 mls/hr Norepinephrine Bitartrate 4 mg (/ Sodium Chloride) 254 mls @ 7.383 mls/hr IV .Q24H [facility]; Protocol Last Titration: 06/09/23 11:00 Dose: 0.07 mcg/kg/min, 17.227 mls/hr Sodium Chloride (Saline 0.9%) 1,000 mls @ 120 mls/hr IV .Q8H20M [facility] Last Admin: 06/09/23 03:26 Dose: 120 mls/hr Insulin Aspart (Insulin Aspart (Novolog) 100 Unit/Ml Vial) [address] [facility]; Protocol Last Admin: 06/09/23 12:43 Dose: Not Given Metoprolol Tartrate (Metoprolol Tartrate 50 Mg Tab) 50 mg PO BID [facility] Last Admin: 06/09/23 08:31 Dose: 50 mg Miscellaneous Information (Magnesium Replacement Protocol 1 Each Misc) 1 each MISCELLANE DAILY PRN; Protocol PRN Reason: Per Protocol Miscellaneous Information (Potassium Replacement Protocol 1 Each Misc) 1 each MISCELLANE DAILY PRN; Protocol PRN Reason: Per Protocol Naloxone HCl (Naloxone 0.4 Mg/Ml 1 Ml Vial) 0.2 mg IV Q2M PRN PRN Reason: Opioid Reversal Non-Formulary Medication (Semaglutide [Ozempic]) 0.5 mg SQ [facility] Ondansetron HCl (Ondansetron 4 Mg/2 Ml Vial) 4 mg IVP Q8HR PRN PRN Reason: Nausea And Vomiting Pantoprazole Sodium (Pantoprazole 40 Mg Tablet) 40 mg PO DAILY [facility] Last Admin: 06/09/23 08:30 Dose: 40 mg Sodium Bicarbonate (Sodium Bicarbonate Tab 650 Mg Tab) 650 mg PO BID [facility] Last Admin: 06/09/23 09:48 Dose: 650 mg Tamsulosin HCl (Tamsulosin 0.4 Mg Cap.Er.24h) 0.4 mg PO DAILY [facility] Last Admin: 06/09/23 09:48 Dose: 0.4 mg Trazodone HCl (Trazodone Hcl 100 Mg Tab) 100 mg PO HS [facility] Last Admin: 06/08/23 21:49 Dose: 100 mg Social history: Lives with his daughter. Retired. Non-smoker. History of alcohol Physical examination: VITAL SIGNS:. Afebrile, 85, 12, 88/34, 97% room air GENERAL: Laying in bed, tired EYES: Pupils equal. Conjunctiva soraya l. HEENT: External appearance of nose and ears normal, oral cavity grossly normal. NECK: JVD not raised; masses not palpable. HEART: First and second heart sounds are normal; no edema. LUNGS: Respiratory rate normal; clear to auscultation. ABDOMEN: Soft, mild tenderness, no guarding rigidity liver spleen not palpable, no masses palpable. PSYCH: [Able to answer simple questions but lethargic MUSCULOSKELETAL:No Clubbing/cyanosis;muscles-grossly intact. OA NEUROLOGICAL: Chronic left-sided weakness INVESTIGATIONS, reviewed in the clinical context: June 09: White count 9 hemoglobin 8.5 platelets 159 sodium 146 potassium 2.8 creatinine 0.9 White count 16.9 hemoglobin 15.4 platelets 328 sodium 145 potassium 3.4 BUN 15 creatinine 1.12 blood glucose 286 lactic acid 4.9 UA: Positive for leukoesterase WBC Serum acetone positive COVID-19 PCR: Detected [influenza type A, type B, RSV: Not detected] EKG tracing personally reviewed by me-atrial fibrillation with a rate of 103 Chest x-ray from repeated from other place- unremarkable Assessment and plan: -Septic shock: Slow to respond IV Levophed. IV Zosyn. IV fluids -sepsis from low-grade colitis. Patient been having abdominal pain for about 2 months with some diarrhea. IV Zosyn. IV fluids. GI services not available in the hospital. Blood culture -Lactic acidosis from above IV fluids -Acute metabolic encephalopathy from sepsis. -Atrial fibrillation with rate controlled Received IV Cardizem at the outside hospital. Lopressor. Eliquis -Chronic left-sided paresis, from prior stroke -Diabetic ketoacidosis: Resolved -BPH Flomax -Diabetes mellitus type 2 , On Ozempic. Accu-Cheks with sliding scale -Depression Celexa, trazodone -Hyperlipidemia Lipitor -DNR [advance care planning: June 09, 2023: With daughter Yamileth. She under stands patient overall prognosis guarded. Baseline with good left-sided weakness. Full discussion was held. She decided to make the patient DNR. Questions answered. She understands care will be provided till then including medications.]. Time spent about 25 minutes ICU. DNR. 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
[2023-06-09 16:33] LABS: Glucose,Whole Blood 187 mg/dL (70-110)
[2023-06-09] MEDS: ATORVASTATIN 20 MG TAB PO SCH (20:56)
[2023-06-09] MEDS: traZODone HCL 100 MG TAB PO SCH (20:56)
[2023-06-09 21:36] LABS: Glucose,Whole Blood 158 mg/dL (70-110)
[2023-06-09 22:11] LABS: Magnesium 2.1 mg/dL (1.6-2.3); Potassium 3.8 mmol/L (3.5-5.1)
[2023-06-10] MEDS: PIPERACILLIN-TAZOBACTAM 3.375 GM in SODIUM CHLORIDE 0.9% 100 ML IVPB SCH ×4 (00:10→23:01)
[2023-06-10 05:15] LABS: Anisocytosis Slight; Basophils % (A) 0 %; Eosinophils # (A) 0.1 k/uL (0-0.7); Eosinophils % (A) 1 %; HCT 37.8 % (39.0-53.0); Hypochromasia Marked; Lymphocytes # (A) 0.7 k/uL (1.0-4.8); Lymphocytes % (A) 10 %; MCH 35.5 pg (25.0-35.0); MCHC 32.1 g/dL (31.0-37.0); MCV 110.7 fL (80.0-100.0); Macrocytosis Marked; Mean Platelet Volume 8.4; Monocytes # (A) 0.3 k/uL (0-1.0); Monocytes % (A) 5 %; Neutrophils # (A) 5.8 k/uL (1.3-7.7); Neutrophils % (A) 83 %; Platelet Count 148 k/uL (150-450); RBC 3.42 m/uL (4.30-5.90); RDW 16.3 % (11.5-15.5)
[2023-06-10 05:16] LABS: HGB 12.1 gm/dL (13.0-17.5)
[2023-06-10 05:17] LABS: African American GFR (CKD) >90 (>60 ml/min/1.73 sqM); Anion Gap 5 mmol/L; Blood Urea Nitrogen 8 mg/dL (9-20); Calcium 7.4 mg/dL (8.4-10.2); Carbon Dioxide 15 mmol/L (22-30); Chloride 127 mmol/L (98-107); Non-African American GFR(CKD) 84 (>60 ml/min/1.73 sqM); Sodium 147 mmol/L (137-145)
[2023-06-10 06:08] LABS: Glucose 129 mg/dL (74-99); Magnesium 2.1 mg/dL (1.6-2.3); Potassium 4.8 mmol/L (3.5-5.1)
[2023-06-10 06:38] LABS: Glucose,Whole Blood 142 mg/dL (70-110)
[2023-06-10] MEDS: INSULIN ASPART (NovoLOG) 100 UNIT/ML VIAL SQ SCH ×4 (06:39→20:42)
[2023-06-10] MEDS: METOPROLOL TARTRATE 50 MG TAB PO SCH ×2 (08:56→20:24)
[2023-06-10] MEDS: SODIUM BICARBONATE TAB 650 MG TAB PO SCH (08:56)
[2023-06-10] MEDS: APIXABAN 5 MG TAB PO SCH ×2 (08:56→20:24)
[2023-06-10] MEDS: CITALOPRAM HYDROBROMIDE 20 MG TAB PO SCH (08:56)
[2023-06-10] MEDS: TAMSULOSIN 0.4 MG CAP.ER.24H PO SCH (08:56)
[2023-06-10] MEDS: PANTOPRAZOLE 40 MG TABLET PO SCH (08:56)
--- NOTE | 2023-06-10 09:05 | P.PN ---
Progress Note - Text Progress Note Date: 06/10/23 Chief Complaint: Sepsis This is a 82-year-old patient, follows with Dr. Ayaan Valdovinos. Patient was transferred to the ER from [facility] stand-alone ER on [address] [place] . For sepsis/suspected UTI. Patient had presented there with some abdominal pain. Also having loose stool every day maybe once a day. Also was in A-fib with rapid ventricular rate. Was put on Cardizem given IV fluids and started on Zosyn. CFD abdomen had revealed some nonspecific inflammatory findings. And he was transferred here. In the ER patient tested positive for COVID-19. Patient rather tired. But able to normally walk independently. Denies any fever and chills. Was positive for lactic acid in the ER and given IV fluids. I saw the patient in the trauma room. Patient only able to answer some questions slowly. June 08, 2023: This morning patient became hypotensive. DKA had resolved. Placed on sliding scale. Patient to be moved to the ICU. Biblical Studies Professor consulted. IV fluids. Started on Levophed. Sliding scale insulin. June 09, 2023: ICU. Daughter Yamileth at the bedside. Medical POA. She now tells me that patient is nonambulatory. Does use a wheelchair. Chronic left- sided weakness. Eating very little. Remains on IV Levophed. Atrial fibrillation rate controlled. IV Zosyn. Patient been having loose watery 2 bowel movements a day for some time. CODE STATUS discussed with the daughter at the bedside. Made DNR. June 10: ICU. IV Levophed. Remains in A-fib. Rate controlled. Laying in bed. Tired. IV Zosyn. Blood cultures negative till now. Bicarbonate 15. Changed to sodium bicarbonate drip. Active Medications Acetaminophen (Acetaminophen Tab 325 Mg Tab) 650 mg PO Q6HR PRN PRN Reason: Mild Pain or Fever > 100.5 Hydrocodone Bitart/Acetaminophen (Hydrocodone/Apap 5-325mg 1 Each Tab) 1 each PO Q6H PRN PRN Reason: Pain Albuterol Sulfate (Albuterol Hfa Inhaler) 2 puff INHALATION RT-Q6H PRN PRN Reason: Shortness Of Breath Apixaban (Apixaban 5 Mg Tab) 5 mg PO BID [facility]; Protocol Last Admin: 06/10/23 08:56 Dose: 5 mg Atorvastatin Calcium (Atorvastatin 20 Mg Tab) 20 mg PO HS [facility] Last Admin: 06/09/23 20:56 Dose: 20 mg Citalopram Hydrobromide (Citalopram Hydrobromide 20 Mg Tab) 20 mg PO DAILY [facility] Last Admin: 06/10/23 08:56 Dose: 20 mg Dextrose/Water (Dextrose 50% Syringe 50 Ml) 25 ml IVP PER PROTOCOL PRN; Protocol PRN Reason: Hypoglycemia Dextrose/Water (Dextrose 50% Syringe 50 Ml) 25 ml IVP PER PROTOCOL PRN; Protocol PRN Reason: Hypoglycemia Dextrose/Water (Dextrose 50% Syringe 50 Ml) 50 ml IVP PER PROTOCOL PRN; Protocol PRN Reason: Hypoglycemia Gabapentin (Gabapentin 300 Mg Cap) 600 mg PO TID PRN PRN Reason: Pain Last Admin: 06/07/23 20:31 Dose: 600 mg Piperacillin Sod/Tazobactam (Sod 3.375 gm/ Sodium Chloride) 100 mls @ 25 mls/hr IVPB Q8HR [facility]; Protocol Last Admin: 06/10/23 08:56 Dose: 25 mls/hr Norepinephrine Bitartrate 4 mg (/ Sodium Chloride) 254 mls @ 7.383 mls/hr IV .Q24H [facility]; Protocol Last Titration: 06/10/23 06:40 Dose: 0 mcg/kg/min, 0 mls/hr Sodium Chloride (Saline 0.9%) 1,000 mls @ 120 mls/hr IV .Q8H20M [facility] Last Admin: 06/09/23 20:51 Dose: 120 mls/hr Insulin Aspart (Insulin Aspart (Novolog) 100 Unit/Ml Vial) 0 unit SQ [facility]; Protocol Last Admin: 06/10/23 06:39 Dose: Not Given Metoprolol Tartrate (Metoprolol Tartrate 50 Mg Tab) 50 mg PO BID [facility] Last Admin: 06/10/23 08:56 Dose: 50 mg Miscellaneous Information (Magnesium Replacement Protocol 1 Each Misc) 1 each MISCELLANE DAILY PRN; Protocol PRN Reason: Per Protocol Miscellaneous Information (Potassium Replacement Protocol 1 Each Misc) 1 each MISCELLANE DAILY PRN; Protocol PRN Reason: Per Protocol Naloxone HCl (Naloxone 0.4 Mg/Ml 1 Ml Vial) 0.2 mg IV Q2M PRN PRN Reason: Opioid Reversal Non-Formulary Medication (Semaglutide [Ozempic]) 0.5 mg SQ [facility] Ondansetron HCl (Ondansetron 4 Mg/2 Ml Vial) 4 mg IVP Q8HR PRN PRN Reason: Nausea And Vomiting Pantoprazole Sodium (Pantoprazole 40 Mg Tablet) 40 mg PO DAILY [facility] Last Admin: 06/10/23 08:56 Dose: 40 mg Sodium Bicarbonate (Sodium Bicarbonate Tab 650 Mg Tab) 650 mg PO BID [facility] Last Admin: 06/10/23 08:56 Dose: 650 mg Tamsulosin HCl (Tamsulosin 0.4 Mg Cap.Er.24h) 0.4 mg PO DAILY [facility] Last Admin: 06/10/23 08:56 Dose: 0.4 mg Trazodone HCl (Trazodone Hcl 100 Mg Tab) 100 mg PO HS [facility] Last Admin: 06/09/23 20:56 Dose: 100 mg Social history: Lives with his daughter. Retired. Non-smoker. History of alcohol Physical examination: VITAL SIGNS:. Afebrile, 87, 16, 79 x 58, 99% GENERAL: Laying in bed, tired EYES: Pupils equal. Conjunctiva soraya l. HEENT: External appearance of nose and ears normal, oral cavity grossly normal. NECK: JVD not raised; masses not palpable. HEART: First and second heart sounds are normal; no edema. LUNGS: Respiratory rate normal; clear to auscultation. ABDOMEN: Soft, mild tenderness, no guarding rigidity liver spleen not palpable, no masses palpable. PSYCH: [Able to answer simple questions but lethargic MUSCULOSKELETAL:No Clubbing/cyanosis;muscles-grossly intact. OA NEUROLOGICAL: Chronic left-sided weakness INVESTIGATIONS, reviewed in the clinical context: June 10: White count 7 hemoglobin 12.1 platelets 148 potassium 4.8 creatinine 0.76 June 09: White count 9 hemoglobin 8.5 platelets 159 sodium 146 potassium 2.8 creatinine 0.9 White count 16.9 hemoglobin 15.4 platelets 328 sodium 145 potassium 3.4 BUN 15 creatinine 1.12 blood glucose 286 lactic acid 4.9 UA: Positive for leukoesterase WBC Serum acetone positive COVID-19 PCR: Detected [influenza type A, type B, RSV: Not detected] EKG tracing personally reviewed by me-atrial fibrillation with a rate of 103 Chest x-ray from repeated from other place- unremarkable Assessment and plan: -Septic shock: Slow to respond IV Levophed. IV Zosyn. IV fluids -sepsis from low-grade colitis. Patient been having abdominal pain for about 2 months with some diarrhea. IV Zosyn. IV fluids. GI services not available in the hospital. Blood culture -Lactic acidosis from above IV fluids -Acute metabolic encephalopathy from sepsis. -Atrial fibrillation with rate controlled Received IV Cardizem at the outside hospital. Lopressor. Eliquis -Severe metabolic acidosis Start sodium bicarbonate drip -Chronic left-sided paresis, from prior stroke -Diabetic ketoacidosis: Resolved -BPH Flomax -Diabetes mellitus type 2 , On Ozempic. Accu-Cheks with sliding scale -Depression Celexa, trazodone -Hyperlipidemia Lipitor -DNR [advance care planning: June 09, 2023: With daughter Yamileth. She understands patient overall prognosis guarded. Baseline with good left-sided weakness. Full discussion was held. She decided to make the patient DNR. Questions answered. She understands care will be provided till then including medications.]. Time spent about 25 minutes Start sodium bicarbonate drip. 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
[2023-06-10] MEDS: SODIUM CHLORIDE 0.9% 1,000 ML IV SCH (10:37)
--- NOTE | 2023-06-10 10:46 | PN ---
PROGRESS NOTE SUBJECTIVE: Artemio is an 82-year-old gentleman with history of diabetes, CVA, hypertension, permanent atrial fibrillation, whom we are following because of atrial fibrillation. The patient is in the ICU, on pressors for hypotension. OBJECTIVE: VITAL SIGNS: On exam, heart rate is 87 beats per minute, blood pressure is 90/62, respiratory rate 18, O2 saturation is 99%. CHEST: Reveals good air entry bilaterally. HEART: Reveals first and second heart sounds. Irregular rhythm. No murmur. ABDOMEN: Soft. EXTREMITIES: Distal pulses are palpable. LABORATORY DATA: Labs show a hemoglobin of 12.1, white cell count is 7. Potassium is 4.8, creatinine is 0.76. ASSESSMENT: 1. Atrial fibrillation with controlled ventricular rate. 2. Sepsis with hypotension. PLAN: The patient will continue the anticoagulant and rest of the supportive care. JOHNNY / ETELVINAN: [id number] /
[2023-06-10] MEDS ORDERED: CLEVIDIPINE BUTYRATE 25 MG in EMPTY BAG 1 BAG IV SCH (11:15)
[2023-06-10 12:06] LABS: Glucose,Whole Blood 167 mg/dL (70-110)
[2023-06-10] MEDS: ACETAMINOPHEN TAB 325 MG TAB PO PRN (12:16)
--- NOTE | 2023-06-10 12:23 | P.PN ---
Subjective Progress Note Date: 06/10/23 Principal diagnosis: Acute sepsis/septic shock This is an 82-year-old white male with history of multiple medical problems including recurrent urinary tract infections, hypertension, dyslipidemia, chronic atrial fibrillation/permanent, patient was seen at the emergency room in [facility] on [address], and he was noted to have urinary tract infection, hypotension, and possible sepsis. Patient was also in atrial fibrillation with controlled ventricular rate. Blood pressure was low, hence the patient was transferred from the ER to our ER for further evaluation. I saw this patient in the ER, he is not a great historian, however I discussed his condition with the daughter at bedside, apparently the patient presented with abdominal pain to the ER, and has been experiencing loose stool every day at least once a day. Considering patient was noted to be in atrial fibrillation with RVR upon presentation, patient was given fluids, patient was placed on Zosyn, CT of the a bdomen and pelvis showed nonspecific inflammatory findings. When I saw the patient in the ER he was hypotensive, I recommended more fluid boluses, recommended norepinephrine and I recommended admission to the ICU labs were reviewed, patient had leukocytosis with WBC of 16.9, ABG showed a pO2 of 95 pCO2 28 pH of 7.31 bicarb 16 with anion gap of 13, however follow-up basic metabolic profile showed anion gap down to 7 and carbon dioxide of 20. Renal profile was noted to be relatively normal lactic acid on admission was 5.6 follow-up lactic acid was 4.1 BNP level was over 5000. Troponin 0.032. Chest x-ray showed mostly atelectasis at the bases, no evidence of pulmonary edema. Was reevaluated today on 06/09/2023, patient remains in the ICU, I saw him yesterday in consultation and recommended ICU admission patient was in the ER at the time. Remains on norepinephrine at 0.08 mcg/kg/min remains on IV fluid 0.9 normal saline at 120 cc/h remains on oral bicarb for his metabolic acidosis rem ains on Zosyn empirically and he is on Eliquis for his atrial fibrillation. Last night the patient developed hypotension received fluid boluses and received norepinephrine which has been tapered down to 0.08, patient has good urine output today, blood cultures are negative so far, urine cultures are pending. Patient is on room air, and he is not in any distress WBC count is 9 hemoglobin 8.5 renal profile is normal with BUN of 10 creatinine 0.9 bicarb remains low at 14, patient has hyperchloremic metabolic acidosisnone anion gap. Chest x-ray this morning showed no evidence of pneumonia and no evidence of congestive heart failure. Patient remains in atrial fibrillation but rate seems to be fairly well-controlled this morning being followed by cardiology echocardiogram recently showed normal systolic left ventricular function, but he does have moderate mitral regurgitation Patient was reevaluated today on 06/10/2023, remains in the ICU, he is on IV fluid at 120 cc/h patient is off norepinephrine since 6 AM this morning. Remains on Zosyn IV fluid was changed today to D5W with 1 amp of bicarb for his mild metabolic acidosis. Hemodynamically the patient is becoming more stable hence will avoid placement of a central line if not necessarily needed.wBC count is 7 hemoglobin is 12.0 sodium is 147 and his IV fluid was changed to D5W his bicarb is 15 patient is on oral bicarb blood cultures remain negative urine cultures are pending Objective - Vital Signs Vital signs: Vital Signs Temp 98.5 F 06/10/23 08:00 Pulse 73 06/10/23 11:00 Resp 17 06/10/23 11:30 BP 91/58 06/10/23 11:30 Pulse Ox 94 L 06/10/23 11:30 FiO2 Intake & Output 06/09/23 06/10/23 06/10/23 18:59 06:59 18:59 Intake Total 2475.339 1794.111 560 Output Total 755 576 100 Balance 5463.388 3618.111 460 Weight 75.5 kg Intake: IV 1680 1660 320 Magnesium Sulfate-D5w Pmx 200 1 gm In Dextrose/Water 1 100ml.bag @ 100 mls/hr IVPB Q1H [facility] Rx#: [id number] Piperacillin-Tazobactam 3 200 100 100 .375 gm In Sodium Chloride 0.9% 100 ml @ 25 mls/hr IVPB Q8HR [facility] Rx# :[id number] Sodium Chloride 0.9% 1, 1280 1560 220 000 ml @ 120 mls/hr IV . Q8H20M [facility] Rx#:[id number] Intake, IV Titration 115.339 134.111 Amount Norepinephrine 4 mg In 115.339 134.111 Sodium Chloride 0.9% 250 ml @ 0.03 MCG/KG/MIN 7. 383 mls/hr IV .Q24H [facility] Rx#:[id number] Oral 680 240 Output: Urine 755 575 100 Urine/Stool Mix 1 Other: Voiding Method Indwelling Catheter Indwelling Catheter # Bowel Movements 1 - Exam General: 82-year-old white on room air not in any distress. Skin: Skin is warm and dry and no rashes or lesions are noted. Dry skin noted. Eye: Pupils are equal, round and reactive to light, extra-ocular movements are intact; there is normal conjunctiva bilaterally. Ears, nose, mouth and throat: There are moist mucous membranes and no oral lesions. Neck: The neck is supple, there is no tenderness or JVD. Cardiovascular: Irregular irregular rhythm 2/6 systolic murmur throughout the precordium Respiratory: Diminished breath sound bilaterally no crackles rhonchi or wheezes Gastrointestinal: Soft nontender no megaly no rebound no guarding. Musculoskeletal: No limitation range of motion no deformity Neurological: No gross focal neurologic deficit. No further confusion noted today Psychiatric: Flat affect, normal mood, normal mental status examination - Labs CBC & Chem 7: 06/10/23 05:00 06/10/23 05:00 Labs: Abnormal Lab Results - Last 24 Hours (Table) 06/09/23 06/09/23 06/09/23 Range/Units 11:30 16:31 21:35 RBC (4.30-5.90) m/uL Hgb (13.0-17.5) gm/dL Hct (39.0-53.0) % MCV (80.0-100.0) fL MCH (25.0-35.0) pg RDW (11.5-15.5) % Plt Count (150-450) k/uL Lymphocytes # (1.0-4.8) k/uL Macrocytosis Sodium (137-145) mmol/L Chloride (98-107) mmol/L Carbon Dioxide (22-30) mmol/L BUN (9-20) mg/dL Glucose (74-99) mg/dL POC Glucose (mg/dL) 187 H 158 H (70-110) mg/dL Calcium (8.4-10.2) mg/dL Urine Blood Large H (Negative) Ur Leukocyte Esterase Moderate H (Negative) Urine RBC >182 H (0-5) /hpf Urine WBC 22 H (0-5) /hpf Urine Mucus Rare H (None) /hpf Urine Yeast (Budding) Few H (None) /hpf 06/10/23 06/10/23 06/10/23 Range/Units 05:00 05:00 06:36 RBC 3.42 L (4.30-5.90) m/uL Hgb 12.1 L D (13.0-17.5) gm/dL Hct 37.8 L (39.0-53.0) % MCV 110.7 H (80.0-100.0) fL MCH 35.5 H (25.0-35.0) pg RDW 16.3 H (11.5-15.5) % Plt Count 148 L (150-450) k/uL Lymphocytes # 0.7 L (1.0-4.8) k/uL Macrocytosis Marked A Sodium 147 H (137-145) mmol/L Chloride 127 H (98-107) mmol/L Carbon Dioxide 15 L (22-30) mmol/L BUN 8 L (9-20) mg/dL Glucose 129 H (74-99) mg/dL POC Glucose (mg/dL) 142 H (70-110) mg/dL Calcium 7.4 L (8.4-10.2) mg/dL Urine Blood (Negative) Ur Leukocyte Esterase (Negative) Urine RBC (0-5) /hpf Urine WBC (0-5) /hpf Urine Mucus (None) /hpf Urine Yeast (Budding) (None) /hpf 06/10/23 Range/Units 12:05 RBC (4.30-5.90) m/uL Hgb (13.0-17.5) gm/dL Hct (39.0-53.0) % MCV (80.0-100.0) fL MCH (25.0-35.0) pg RDW (11.5-15.5) % Plt Count (150-450) k/uL Lymphocytes # (1.0-4.8) k/uL Macrocytosis Sodium (137-145) mmol/L Chloride (98-107) mmol/L Carbon Dioxide (22-30) mmol/L BUN (9-20) mg/dL Glucose (74-99) mg/dL POC Glucose (mg/dL) 167 H (70-110) mg/dL Calcium (8.4-10.2) mg/dL Urine Blood (Negative) Ur Leukocyte Esterase (Negative) Urine RBC (0-5) /hpf Urine WBC (0-5) /hpf Urine Mucus (None) /hpf Urine Yeast (Budding) (None) /hpf Microbiology - Last 24 Hours (Table) 06/07/23 15:45 Blood Culture - Preliminary Blood 06/07/23 16:00 Blood Culture - Preliminary Blood Assessment and Plan Assessment: Impression: Acute sepsis,/septic shock likely sources could be related to his urinary tract infection or colitis Acute diabetic ketoacidosis, resolved with IV fluids Acute lactic acidosis secondary to above Permanent atrial fibrillation, rate controlled at present Benign prostatic hyperplasia Type 2 diabetes History of depression Benign essential hypertension Dyslipidemia History of CVA/TIA 2017. Recommendation: Continue IV fluid, IV fluids changed to D5W and bicarb was added Off norepinephrine since 6 AM this morning Continue Eliquis 5 mg twice daily Continue Zosyn, check blood cultures and urine cultures again so far blood cultures are negative and urine cultures are pending Continue Eliquis Cardiology addressing his atrial fibrillation with metoprolol GI prophylaxis/Protonix Continue to hold lisinopril since his blood pressure is marginal Monitoring of sugars And need to monitor in the ICU for the next 24 hours Will likely transfer out of the ICU in 24 hours Will continue to follow-up Time with Patient: Less than 30
[2023-06-10 16:26] LABS: Glucose,Whole Blood 175 mg/dL (70-110)
[2023-06-10] MEDS ORDERED: VANCOMYCIN IV PER PHARMACY 1 EACH MISC MISCELLANE PRN (17:20)
[2023-06-10] MEDS: ATORVASTATIN 20 MG TAB PO SCH (20:24)
[2023-06-10] MEDS: traZODone HCL 100 MG TAB PO SCH (20:26)
[2023-06-10] MEDS: DEXTROSE 5% IN WATER 1,000 ML with SODIUM BICARB (1 MEQ/ML) 100 ML IV SCH ×2 (20:33→22:16)
[2023-06-10 20:39] LABS: Glucose,Whole Blood 185 mg/dL (70-110)
[2023-06-11] MEDS: DEXTROSE 5% IN WATER 1,000 ML with SODIUM BICARB (1 MEQ/ML) 100 ML IV SCH ×2 (06:27→20:54)
[2023-06-11 06:28] LABS: Glucose,Whole Blood 217 mg/dL (70-110)
[2023-06-11] MEDS: INSULIN ASPART (NovoLOG) 100 UNIT/ML VIAL SQ SCH ×4 (07:09→21:35)
[2023-06-11 07:47] LABS: Basophils % (A) 1 %; Eosinophils # (A) 0.2 k/uL (0-0.7); Eosinophils % (A) 3 %; HCT 39.1 % (39.0-53.0); Lymphocytes # (A) 0.7 k/uL (1.0-4.8); Lymphocytes % (A) 12 %; MCHC 33.4 g/dL (31.0-37.0); Macrocytosis Moderate; Monocytes # (A) 0.3 k/uL (0-1.0); Monocytes % (A) 5 %; Neutrophils # (A) 4.5 k/uL (1.3-7.7); Neutrophils % (A) 79 %; Platelet Count 186 k/uL (150-450); RBC 3.72 m/uL (4.30-5.90); WBC 5.7 k/uL (3.8-10.6)
[2023-06-11 07:58] LABS: ALT 12 U/L (4-49); AST 34 U/L (17-59); African American GFR (CKD) >90 (>60 ml/min/1.73 sqM); Alkaline Phosphatase 41 U/L (38-126); Anion Gap 6 mmol/L; Blood Urea Nitrogen 6 mg/dL (9-20); Calcium 7.7 mg/dL (8.4-10.2); Carbon Dioxide 16 mmol/L (22-30); Chloride 123 mmol/L (98-107); Glucose 236 mg/dL (74-99); Magnesium 1.8 mg/dL (1.6-2.3); Non-African American GFR(CKD) 90 (>60 ml/min/1.73 sqM); Sodium 145 mmol/L (137-145); Total Protein 4.4 g/dL (6.3-8.2)
[2023-06-11 08:02] LABS: Potassium 4.2 mmol/L (3.5-5.1)
[2023-06-11 08:22] LABS: Crenated RBC Present
[2023-06-11] MEDS: APIXABAN 5 MG TAB PO SCH ×2 (08:54→20:53)
[2023-06-11] MEDS: PIPERACILLIN-TAZOBACTAM 3.375 GM in SODIUM CHLORIDE 0.9% 100 ML IVPB SCH ×2 (08:54→16:00)
[2023-06-11] MEDS: TAMSULOSIN 0.4 MG CAP.ER.24H PO SCH (08:54)
[2023-06-11] MEDS: CITALOPRAM HYDROBROMIDE 20 MG TAB PO SCH (08:54)
[2023-06-11] MEDS: METOPROLOL TARTRATE 50 MG TAB PO SCH ×2 (08:54→21:03)
[2023-06-11] MEDS: PANTOPRAZOLE 40 MG TABLET PO SCH (08:54)
[2023-06-11] MEDS ORDERED: FUROSEMIDE 10 MG/ML 4 ML VIAL IV STA (09:19)
--- NOTE | 2023-06-11 11:00 | P.PN ---
Subjective HISTORY OF PRESENT ILLNESS: This is a 82-year-old male with a past medical history significant for diabetes, hypertension, hyperlipidemia, CVA, and permanent atrial fibrillation.. Patient used to follow in the office with Dr. Soria but has not been seen since April 2021. We have been asked to see the patient in consultation for atrial fibrillation. Patient examined at the bedside in the emergency room. There is no family present at time of examination. Patient is lethargic and unable to provide any HPI. Apparently, he was transferred to [facility] from the [facility] on [address]. Patient was transferred secondary to sepsis and urinary tract infection. The patient has been hypotensive throughout the night with a systolic blood pressure between 7080. Bedside telemetry reveals atrial fibrillation with controlled ventricular rate. Patient's blood pressure at time of examination is 72/50. DIAGNOSTICS: - EKG reveals atrial fibrillation with controlled ventricular rate. Right bundle branch block. - Chest xray not available at time of dictation - CT brain: Large old right-sided infarct. Chronic appearing periventricular white matter ischemic type changes with atrophy. - Laboratory data: WBC 13.2. Hemoglobin 12.8. Platelet count 239. Sodium 144. Potassium 3.8. BUN 16. Creatinine 0.94. Lactic acid 4.2. Repeat 3.3. Troponin negative times 3. proBNP 5630. - Current home cardiac medications include Eliquis 5 mg twice a day, Lipitor 20 mg at night, Lasix 40 mg daily, metoprolol titrate 100 mg twice a day - Most recent echocardiogram obtained in 2020 revealed ejection fraction 50-55%, mild MR, mild TR 06/11 Patient seen and examined. Patient denies any chest pain or pressure or shortness breath. He has had borderline blood pressures with 90s over 60s overnight however map adequate. He has been tolerating the metoprolol. Heart rates well controlled. Remains on anticoagulation without any significant hematochezia or melena. PHYSICAL EXAM: VITAL SIGNS: Reviewed. GENERAL: Well-developed in no acute distress. HEENT: Head is normocephalic. Pupils are equal, round. Sclerae anicteric. Mucous membranes of the mouth are moist. Neck supple. No JVD or thyromegaly LUNGS: Respirations even and unlabored. Lungs essentially clear to auscultation bilaterally. HEART: Irregular rate and rhythm. S1 and S2 heard. ABDOMEN: Soft. Nondistended. Nontender. EXTREMITIES: Normal range of motion. No clubbing or cyanosis. Peripheral pulses intact. Trace bilateral lower extremity edema NEUROLOGIC: Lethargic ASSESSMENT: Sepsis Urinary tract infection Acute COVID-19 Hypotension Lactic acidosis Permanent atrial fibrillation with controlled ventricular rate Known right bundle branch block History of hypertension History of hyperlipidemia History of CVA Diabetes Moderate mitral regurgitation PLAN: Echocardiogram showed preserved EF with moderate mitral regurgitation Continue with metoprolol for rate control. Blood pressure is borderline however appears to be tolerating with adequate MAP Continue with anticoagulation. Appears to be slowly improving from a septic standpoint. Continue with current regimen. Objective - Vital Signs Vital signs: Vital Signs Temp 98.1 F 06/11/23 09:00 Pulse 89 06/11/23 10:00 Resp 20 06/11/23 10:00 BP 127/83 06/11/23 10:00 Pulse Ox 98 06/11/23 10:00 FiO2 Intake & Output 06/10/23 06/11/23 06/11/23 18:59 06:59 18:59 Intake Total 2009 1450 600 Output Total 410 330 205 Balance 1600 1120 395 Weight 76.9 kg Intake: IV 1570 1100 500 Dextrose 5% in Water 1, 1150 1100 400 000 ml @ 100 mls/hr IV . Q11H [facility] with Sodium Bicarb (1 Meq/ml) 100 ml Rx#:[id number] Piperacillin-Tazobactam 3 200 100 .375 gm In Sodium Chloride 0.9% 100 ml @ 25 mls/hr IVPB Q8HR [facility] Rx# :[id number] Sodium Chloride 0.9% 1, 220 000 ml @ 120 mls/hr IV . Q8H20M [facility] Rx#:[id number] Oral 440 350 100 Output: Urine 410 330 205 Other: Voiding Method Indwelling Catheter Indwelling Catheter Indwelling Catheter # Bowel Movements 1 - Labs CBC & Chem 7: 06/11/23 07:26 06/11/23 07:26 Labs: Abnormal Lab Results - Last 24 Hours (Table) 06/10/23 06/10/23 06/10/23 Range/Units 12:05 16:25 20:38 RBC (4.30-5.90) m/uL MCV (80.0-100.0) fL RDW (11.5-15.5) % Lymphocytes # (1.0-4.8) k/uL Chloride (98-107) mmol/L Carbon Dioxide (22-30) mmol/L BUN (9-20) mg/dL Creatinine (0.66-1.25) mg/dL Glucose (74-99) mg/dL POC Glucose (mg/dL) 167 H 175 H 185 H (70-110) mg/dL Calcium (8.4-10.2) mg/dL Total Protein (6.3-8.2) g/dL Albumin (3.5-5.0) g/dL 06/11/23 06/11/23 06/11/23 Range/Units 06:26 07:26 07:26 RBC 3.72 L (4.30-5.90) m/uL MCV 105.0 H D (80.0-100.0) fL RDW 16.0 H (11.5-15.5) % Lymphocytes # 0.7 L (1.0-4.8) k/uL Chloride 123 H (98-107) mmol/L Carbon Dioxide 16 L (22-30) mmol/L BUN 6 L (9-20) mg/dL Creatinine 0.64 L (0.66-1.25) mg/dL Glucose 236 H (74-99) mg/dL POC Glucose (mg/dL) 217 H (70-110) mg/dL Calcium 7.7 L (8.4-10.2) mg/dL Total Protein 4.4 L (6.3-8.2) g/dL Albumin 2.0 L (3.5-5.0) g/dL Microbiology - Last 24 Hours (Table) 06/07/23 15:45 Blood Culture - Preliminary Blood 06/07/23 16:00 Blood Culture - Preliminary Blood 06/09/23 11:30 Urine Culture - Final Urine,Voided Mariaa albicans 06/07/23 15:40 Urine Culture - Final Urine,Voided Mariaa albicans
[2023-06-11 11:18] LABS: Glucose,Whole Blood 219 mg/dL (70-110)
--- NOTE | 2023-06-11 12:18 | P.PN ---
Subjective Progress Note Date: 06/11/23 This is an 82-year-old white male with history of multiple medical problems including recurrent urinary tract infections, hypertension, dyslipidemia, chronic atrial fibrillation/permanent, patient was seen at the emergency room in [facility] on [address], and he was noted to have urinary tract infection, hypotension, and possible sepsis. Patient was also in atrial fibrillation with controlled ventricular rate. Blood pressure was low, hence the patient was transferred from the ER to our ER for further evaluation. I saw this patient in the ER, he is not a great historian, however I discussed his condition with the daughter at bedside, apparently the patient presented with abdominal pain to the ER, and has been experiencing loose stool every day at least once a day. Considering patient was noted to be in atrial fibrillation with RVR upon presentation, patient was given fluids, patient was placed on Zosyn, CT of the abdomen and pelvis showed nonspecific inflammatory findings. When I saw the patient in the ER he was hypotensive, I recommended more fluid boluses, recommended norepinephrine and I recommended admission to the ICU labs were reviewed, patient had leukocytosis with WBC of 16.9, ABG showed a pO2 of 95 pCO2 28 pH of 7.31 bicarb 16 with anion gap of 13, however follow-up basic metabolic profile showed anion gap down to 7 and carbon dioxide of 20. Renal profile was noted to be relatively normal lactic acid on admission was 5.6 follow-up lactic acid was 4.1 BNP level was over 5000. Troponin 0.032. Chest x-ray showed mostly atelectasis at the bases, no evidence of pulmonary edema. Was reevaluated today on 06/09/2023, patient remains in the ICU, I saw him yesterday in consultation and recommended ICU admission patient was in the ER at the time. Remains on norepinephrine at 0.08 mcg/kg/min remains on IV fluid 0.9 normal saline at 120 cc/h remains on oral bicarb for his metabolic acidosis remains on Zosyn empirically and he is on Eliquis for his atrial fibrillation. Last night the patient developed hypotension received fluid boluses and received norepinephrine which has been tapered down to 0.08, patient has good urine output today, blood cultures are negative so far, urine cultures are pending. Patient is on room air, and he is not in any distress WBC count is 9 hemoglobin 8.5 renal profile is normal with BUN of 10 creatinine 0.9 bicarb remains low at 14, patient has hyperchloremic metabolic acidosisnone anion gap. Chest x-ray this morning showed no evidence of pneumonia and no evidence of congestive heart failure. Patient remains in atrial fibrillation but rate seems to be fairly well-controlled this morning being followed by cardiology echocardiogram recently showed normal systolic left ventricular function, but he does have moderate mitral regurgitation Patient was reevaluated today on 06/10/2023, remains in the ICU, he is on IV fluid at 120 cc/h patient is off norepinephrine since 6 AM this morning. Remains on Zosyn IV fluid was changed today to D5W with 1 amp of bicarb for his mild metabolic acidosis. Hemodynamically the patient is becoming more stable hence will avoid placement of a central line if not necessarily needed.wBC count is 7 hemoglobin is 12.0 sodium is 147 and his IV fluid was changed to D5W his bicarb is 15 patient is on oral bicarb blood cultures remain negative urine cultures are pending The patient was seen today June 11, 2023 in follow-up in the intensive care unit. He is currently sitting up in bed. Awake and alert in no acute distress. He is maintaining O2 saturations in the 90s on room air. His norepinephrine has been off. His urine output remains low. He is positive 8 L of fluid resuscitation this admission. Urine output has been low. He was given Lasix 40 mg IVP x 1. He has D5W with 1 amp of sodium bicarb at 100 MLS per hour. White count 5.7. Hemoglobin 13.0. Platelets 186. Sodium 145. Potassium 4.2. Bicarb 16. BUN 6. Creatinine 0.64. Glucose 236. He is continued on bro nchodilators. Antibiotics in the form of Zosyn. Anticoagulated with Eliquis. Objective - Vital Signs Vital signs: Vital Signs Temp 98.1 F 06/11/23 09:00 Pulse 89 06/11/23 10:00 Resp 20 06/11/23 10:00 BP 127/83 06/11/23 10:00 Pulse Ox 98 06/11/23 10:00 FiO2 Intake & Output 06/10/23 06/11/23 06/11/23 18:59 06:59 18:59 Intake Total 2009 1450 875 Output Total 233 996 2492 Balance 1600 1120 -555 Weight 76.9 kg Intake: IV 1570 1100 700 Dextrose 5% in Water 1, 1150 1100 600 000 ml @ 100 mls/hr IV . Q11H [facility] with Sodium Bicarb (1 Meq/ml) 100 ml Rx#:[id number] Piperacillin-Tazobactam 3 200 100 .375 gm In Sodium Chloride 0.9% 100 ml @ 25 mls/hr IVPB Q8HR [facility] Rx# :[id number] Sodium Chloride 0.9% 1, 220 000 ml @ 120 mls/hr IV . Q8H20M [facility] Rx#:[id number] Oral 440 350 175 Output: Urine 735 593 1873 Other: Voiding Method Indwelling Catheter Indwelling Catheter Indwelling Catheter # Bowel Movements 1 - Exam General:, Alert 82-year-old woman, on room air, not in any distress. Skin: Skin is warm and dry and no rashes or lesions are noted. Dry skin noted. Eye: Pupils are equal, round and reactive to light, extra-ocular movements are intact; there is normal conjunctiva bilaterally. Ears, nose, mouth and throat: There are moist mucous membranes and no oral lesions. Neck: The neck is supple, there is no tenderness or JVD. Cardiovascular: Irregular irregular rhythm 2/6 systolic murmur throughout the p recordium Respiratory: Diminished breath sound bilaterally no crackles rhonchi or wheezes Gastrointestinal: Soft nontender no megaly no rebound no guarding. Musculoskeletal: No limitation range of motion no deformity Neurological: No gross focal neurologic deficit. No further confusion noted today Psychiatric: Flat affect, normal mood, normal mental status examination - Labs CBC & Chem 7: 06/11/23 07:26 06/11/23 07:26 Labs: Abnormal Lab Results - Last 24 Hours (Table) 06/10/23 06/10/23 06/11/23 Range/Units 16:25 20:38 06:26 RBC (4.30-5.90) m/uL MCV (80.0-100.0) fL RDW (11.5-15.5) % Lymphocytes # (1.0-4.8) k/uL Chloride (98-107) mmol/L Carbon Dioxide (22-30) mmol/L BUN (9-20) mg/dL Creatinine (0.66-1.25) mg/dL Glucose (74-99) mg/dL POC Glucose (mg/dL) 175 H 185 H 217 H (70-110) mg/dL Calcium (8.4-10.2) mg/dL Total Protein (6.3-8.2) g/dL Albumin (3.5-5.0) g/dL 06/11/23 06/11/23 06/11/23 Range/Units 07:26 07:26 11:16 RBC 3.72 L (4.30-5.90) m/uL MCV 105.0 H D (80.0-100.0) fL RDW 16.0 H (11.5-15.5) % Lymphocytes # 0.7 L (1.0-4.8) k/uL Chloride 123 H (98-107) mmol/L Carbon Dioxide 16 L (22-30) mmol/L BUN 6 L (9-20) mg/dL Creatinine 0.64 L (0.66-1.25) mg/dL Glucose 236 H (74-99) mg/dL POC Glucose (mg/dL) 219 H (70-110) mg/dL Calcium 7.7 L (8.4-10.2) mg/dL Total Protein 4.4 L (6.3-8.2) g/dL Albumin 2.0 L (3.5-5.0) g/dL Microbiology - Last 24 Hours (Table) 06/07/23 15:45 Blood Culture - Preliminary Blood 06/07/23 16:00 Blood Culture - Preliminary Blood 06/09/23 11:30 Urine Culture - Final Urine,Voided Mariaa albicans 06/07/23 15:40 Urine Culture - Final Urine,Voided Mariaa albicans Assessment and Plan Assessment: Acute sepsis,/septic shock likely sources could be related to his urinary tract infection or colitis, urine culture positive for Mariaa only. Acute diabetic ketoacidosis, resolved with IV fluids Acute lactic acidosis secondary to above COVID-19 infection without evidence of COVID-pneumonia Permanent atrial fibrillation, rate controlled at present Benign prostatic hyperplasia Type 2 diabetes History of depression Benign essential hypertension Dyslipidemia History of CVA/TIA 2017 Plan: The patient was seen and evaluated Labs and medications reviewed Check a procalcitonin Continue Zosyn for now Stable and on room air Transfer to the regular medical floor DNR/DNI CODE STATUS We will continue to follow I have personally seen and examined the patient, performed the documentation and the assessment and plan as written. Number of minutes spent on the visit: 10.
[2023-06-11 14:48] VITALS: BMI 25.7
[2023-06-11] MEDS: HYDROcodone/APAP 5-325MG 1 EACH TAB PO PRN (14:58)
[2023-06-11 17:06] LABS: Glucose,Whole Blood 247 mg/dL (70-110)
[2023-06-11] MEDS ORDERED: FLUCONAZOLE 100 MG TAB PO ONE (19:00)
--- NOTE | 2023-06-11 19:00 | P.PN ---
Progress Note - Text Progress Note Date: 06/11/23 Chief Complaint: Sepsis This is a 82-year-old patient, follows with Dr. Ayaan Valdovinos. Patient was transferred to the ER from [facility] stand-alone ER on [address] For sepsis/suspected UTI. Patient had presented there with some abdominal pain. Also having loose stool every day maybe once a day. Also was in A-fib with rapid ventricular rate. Was put on Cardizem given IV fluids and started on Zosyn. CFD abdomen had revealed some nonspecific inflammatory findings. And he was transferred here. In the ER patient tested positive for COVID-19. Patient rather tired. But able to normally walk independently. Denies any fever and chills. Was positive for lactic acid in the ER and given IV fluids. I saw the patient in the trauma room. Patient only able to answer some questions slowly. June 08, 2023: This morning patient became hypotensive. DKA had resolved. Placed on sliding scale. Patient to be moved to the ICU. [employer] Equipment [employer] consulted. IV fluids. Started on Levophed. Sliding scale insulin. June 09, 2023: ICU. Daughter Yamileth at the bedside. Medical POA. She now tells me that patient is nonambulatory. Does use a wheelchair. Chronic left- sided weakness. Eating very little. Remains on IV Levophed. Atrial fibrillation rate controlled. IV Zosyn. Patient been having loose watery 2 bowel movements a day for some time. CODE STATUS discussed with the daughter at the bedside. Made DNR. June 10: ICU. IV Levophed. Remains in A-fib. Rate controlled. Laying in bed. Tired. IV Zosyn. Blood cultures negative till now. Bicarbonate 15. Changed to sodium bicarbonate drip. June 11: ICU. A-fib controlled. Propped up in bed. Answering questions. Daughter at the bedside. Eating some. Off Levophed. Sodium bicarbonate drip. IV Zosyn. Blood cultures negative in 72 hours. Urine culture grew Mariaa albicans. Will add Diflucan. BRENDA Antonio in a.m. Active Medications Acetaminophen (Acetaminophen Tab 325 Mg Tab) 650 mg PO Q6HR PRN PRN Reason: Mild Pain or Fever > 100.5 Last Admin: 06/10/23 12:16 Dose: 650 mg Hydrocodone Bitart/Acetaminophen (Hydrocodone/Apap 5-325mg 1 Each Tab) 1 each PO Q6H PRN PRN Reason: Pain Last Admin: 06/11/23 14:58 Dose: 1 each Albuterol Sulfate (Albuterol Hfa Inhaler) 2 puff INHALATION RT-Q6H PRN PRN Reason: Shortness Of Breath Apixaban (Apixaban 5 Mg Tab) 5 mg PO BID JAY; Protocol Last Admin: 06/11/23 08:54 Dose: 5 mg Atorvastatin Calcium (Atorvastatin 20 Mg Tab) 20 mg PO HS JAY Last Admin: 06/10/23 20:24 Dose: 20 mg Citalopram Hydrobromide (Citalopram Hydrobromide 20 Mg Tab) 20 mg PO DAILY [facility] Last Admin: 06/11/23 08:54 Dose: 20 mg Dextrose/Water (Dextrose 50% Syringe 50 Ml) 25 ml IVP PER PROTOCOL PRN; Protocol PRN Reason: Hypoglycemia Dextrose/Water (Dextrose 50% Syringe 50 Ml) 25 ml IVP PER PROTOCOL PRN; Protocol PRN Reason: Hypoglycemia Dextrose/Water (Dextrose 50% Syringe 50 Ml) 50 ml IVP PER PROTOCOL PRN; Protocol PRN Reason: Hypoglycemia Fluconazole (Fluconazole 100 Mg Tab) 200 mg PO ONCE ONE; Protocol Stop: 06/11/23 18:55 Fluconazole (Fluconazole 100 Mg Tab) 100 mg PO DAILY [facility]; Protocol Gabapentin (Gabapentin 300 Mg Cap) 600 mg PO TID PRN PRN Reason: Pain Last Admin: 06/07/23 20:31 Dose: 600 mg Piperacillin Sod/Tazobactam (Sod 3.375 gm/ Sodium Chloride) 100 mls @ 25 mls/hr IVPB Q8HR JAY; Protocol Last Admin: 06/11/23 08:54 Dose: 25 mls/hr Norepinephrine Bitartrate 4 mg (/ Sodium Chloride) 254 mls @ 7.383 mls/hr IV .Q24H JAY; Protocol Last Titration: 06/10/23 06:40 Dose: 0 mcg/kg/min, 0 mls/hr Sodium Bicarbonate 100 ml/ (Dextrose/Water) 1,100 mls @ 100 mls/hr IV .Q11H JAY Last Admin: 06/11/23 06:27 Dose: 100 mls/hr Insulin Aspart (Insulin Aspart (Novolog) 100 Unit/Ml Vial) 0 unit SQ ACHS JAY; Protocol Last Admin: 06/11/23 11:46 Dose: 2 unit Metoprolol Tartrate (Metoprolol Tartrate 50 Mg Tab) 50 mg PO BID [facility] Last Admin: 06/11/23 08:54 Dose: 50 mg Miscellaneous Information (Magnesium Replacement Protocol 1 Each Misc) 1 each MISCELLANE DAILY PRN; Protocol PRN Reason: Per Protocol Miscellaneous Information (Potassium Replacement Protocol 1 Each Misc) 1 each MISCELLANE DAILY PRN; Protocol PRN Reason: Per Protocol Naloxone HCl (Naloxone 0.4 Mg/Ml 1 Ml Vial) 0.2 mg IV Q2M PRN PRN Reason: Opioid Reversal Non-Formulary Medication (Semaglutide [Ozempic]) 0.5 mg SQ [facility] Ondansetron HCl (Ondansetron 4 Mg/2 Ml Vial) 4 mg IVP Q8HR PRN PRN Reason: Nausea And Vomiting Pantoprazole Sodium (Pantoprazole 40 Mg Tablet) 40 mg PO DAILY [facility] Last Admin: 06/11/23 08:54 Dose: 40 mg Tamsulosin HCl (Tamsulosin 0.4 Mg Cap.Er.24h) 0.4 mg PO DAILY [facility] Last Admin: 06/11/23 08:54 Dose: 0.4 mg Trazodone HCl (Trazodone Hcl 100 Mg Tab) 100 mg PO HS [facility] Last Admin: 06/10/23 20:26 Dose: 100 mg Social history: Lives with his daughter. Retired. Non-smoker. History of alcohol Physical examination: VITAL SIGNS:. 98.1, 77, 22, 127 x 83, 98% room air GENERAL: Reclining in bed awake, answering simple questions EYES: Pupils equal. Conjunctiva soraya l. HEENT: External appearance of nose and ears normal, oral cavity grossly normal. NECK: JVD not raised; masses not palpable. HEART: First and second heart sounds are normal; no edema. LUNGS: Respiratory rate normal; clear to auscultation. ABDOMEN: Soft, mild tenderness, no guarding rigidity liver spleen not palpable, no masses palpable. PSYCH: [Able to answer simple questions, more awake MUSCULOSKELETAL:No Clubbing/cyanosis;muscles-grossly intact. OA NEUROLOGICAL: Chronic left-sided weakness INVESTIGATIONS, reviewed in the clinical context: June 11: White count 5.7 hemoglobin 13 potassium 4.2. 6 creatinine 0.64 June 10: White count 7 hemoglobin 12.1 platelets 148 potassium 4.8 creatinine 0.76 June 09: White count 9 hemoglobin 8.5 platelets 159 sodium 146 potassium 2.8 creatinine 0.9 White count 16.9 hemoglobin 15.4 platelets 328 sodium 145 potassium 3.4 BUN 15 creatinine 1.12 blood glucose 286 lactic acid 4.9 UA: Positive for leukoesterase WBC Serum acetone positive COVID-19 PCR: Detected [influenza type A, type B, RSV: Not detected] EKG tracing personally reviewed by me-atrial fibrillation with a rate of 103 Chest x-ray from repeated from other place- unremarkable Assessment and plan: -Septic shock: Better IV Levophed-discontinued. IV Zosyn. IV fluids -sepsis from low-grade colitis. Patient been having abdominal pain for about 2 months with some diarrhea.: Better IV Zosyn-changed to Augmentin. IV fluids. GI services not available in the hospital. Blood culture-negative -Lactic acidosis from above: Improved IV fluids -Acute metabolic encephalopathy from sepsis: Improved. -Atrial fibrillation with rate controlled Received IV Cardizem at the outside hospital. Lopressor. Eliquis -Severe metabolic acidosis sodium bicarbonate drip -Candiduria Diflucan -Chronic left-sided paresis, from prior stroke -Diabetic ketoacidosis: Resolved -BPH Flomax -Diabetes mellitus type 2 , On Ozempic. Accu-Cheks with sliding scale -Depression Celexa, trazodone -Hyperlipidemia Lipitor -DNR [advance care planning: June 09, 2023: With daughter Yamileth. She understands patient overall prognosis guarded. Baseline with good left-sided weakness. Full discussion was held. She decided to make the patient DNR. Questions answered. She understands care will be provided till then including medications.]. Time spent about 25 minutes Stop IV Zosyn changed to Augmentin. Add Diflucan for candiduria. Discussed with daughter at the bedside. 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
[2023-06-11] MEDS: AMOXIC-POT CLAV 875-125MG 1 EACH TAB PO SCH (20:53)
[2023-06-11] MEDS: traZODone HCL 100 MG TAB PO SCH (20:53)
[2023-06-11] MEDS: ATORVASTATIN 20 MG TAB PO SCH (20:53)
[2023-06-11 21:10] LABS: Glucose,Whole Blood 242 mg/dL (70-110)
[2023-06-12] MEDS: DEXTROSE 5% IN WATER 1,000 ML with SODIUM BICARB (1 MEQ/ML) 100 ML IV SCH (04:35)
[2023-06-12 07:02] LABS: Glucose,Whole Blood 226 mg/dL (70-110)
[2023-06-12] MEDS: INSULIN ASPART (NovoLOG) 100 UNIT/ML VIAL SQ SCH ×4 (07:02→20:34)
[2023-06-12] MEDS: NOREPINEPHRINE 4 MG in SODIUM CHLORIDE 0.9% 250 ML IV SCH (08:01)
[2023-06-12] MEDS: TAMSULOSIN 0.4 MG CAP.ER.24H PO SCH (08:02)
[2023-06-12] MEDS: PANTOPRAZOLE 40 MG TABLET PO SCH (08:02)
[2023-06-12] MEDS: AMOXIC-POT CLAV 875-125MG 1 EACH TAB PO SCH ×3 (08:02→20:47)
[2023-06-12] MEDS: APIXABAN 5 MG TAB PO SCH ×2 (08:02→20:30)
[2023-06-12] MEDS: CITALOPRAM HYDROBROMIDE 20 MG TAB PO SCH (08:02)
[2023-06-12] MEDS: FLUCONAZOLE 100 MG TAB PO SCH (08:02)
[2023-06-12] MEDS: METOPROLOL TARTRATE 50 MG TAB PO SCH ×2 (08:33→20:34)
[2023-06-12] MEDS: HYDROcodone/APAP 5-325MG 1 EACH TAB PO PRN ×2 (09:08→21:49)
[2023-06-12 10:38] LABS: African American GFR (CKD) >90 (>60 ml/min/1.73 sqM); Anion Gap 7 mmol/L; Blood Urea Nitrogen 4 mg/dL (9-20); Calcium 7.4 mg/dL (8.4-10.2); Carbon Dioxide 23 mmol/L (22-30); Chloride 114 mmol/L (98-107); Glucose 195 mg/dL (74-99); Non-African American GFR(CKD) >90 (>60 ml/min/1.73 sqM); Sodium 144 mmol/L (137-145)
[2023-06-12 10:41] LABS: Potassium 2.5 mmol/L (3.5-5.1)
[2023-06-12] MEDS ORDERED: Potassium Replacement Protocol 1 EACH MISC MISCELLANE PRN ×3 (10:45→18:54)
[2023-06-12] MEDS ORDERED: POTASSIUM BICARBONATE/CIT AC 20 MEQ TABLET.EFF NG-TUBE ONE (10:45)
[2023-06-12 11:07] LABS: Glucose,Whole Blood 195 mg/dL (70-110)
--- NOTE | 2023-06-12 11:45 | P.PN ---
Subjective Progress Note Date: 06/12/23 This is an 82-year-old white male with history of multiple medical problems including recurrent urinary tract infections, hypertension, dyslipidemia, chronic atrial fibrillation/permanent, patient was seen at the emergency room in [facility] on [address], and he was noted to have urinary tract infection, hypotension, and possible sepsis. Patient was also in atrial fibrillation with controlled ventricular rate. Blood pressure was low, hence the patient was transferred from the ER to our ER for further evaluation. I saw this patient in the ER, he is not a great historian, however I discussed his condition with the daughter at bedside, apparently the patient presented with abdominal pain to the ER, and has been experiencing loose stool every day at least once a day. Considering patient was noted to be in atrial fibrillation with RVR upon presentation, patient was given fluids, patient was placed on Zosyn, CT of the abdomen and pelvis showed nonspecific inflammatory findings. When I saw the patient in the ER he was hypotensive, I recommended more fluid boluses, recommended norepinephrine and I recommended admission to the ICU labs were reviewed, patient had leukocytosis with WBC of 16.9, ABG showed a pO2 of 95 pCO2 28 pH of 7.31 bicarb 16 with anion gap of 13, however follow-up basic metabolic profile showed anion gap down to 7 and carbon dioxide of 20. Renal profile was noted to be relatively normal lactic acid on admission was 5.6 follow-up lactic acid was 4.1 BNP level was over 5000. Troponin 0.032. Chest x-ray showed mostly atelectasis at the bases, no evidence of pulmonary edema. Was reevaluated today on 06/09/2023, patient remains in the ICU, I saw him yesterday in consultation and recommended ICU admission patient was in the ER at the time. Remains on norepinephrine at 0.08 mcg/kg/min remains on IV fluid 0.9 normal saline at 120 cc/h remains on oral bicarb for his metabolic acidosis remains on Zosyn empirically and he is on Eliquis for his atrial fibrillation. Last night the patient developed hypotension received fluid boluses and received norepinephrine which has been tapered down to 0.08, patient has good urine output today, blood cultures are negative so far, urine cultures are pending. Patient is on room air, and he is not in any distress WBC count is 9 hemoglobin 8.5 renal profile is normal with BUN of 10 creatinine 0.9 bicarb remains low at 14, patient has hyperchloremic metabolic acidosisnone anion gap. Chest x-ray this morning showed no evidence of pneumonia and no evidence of congestive heart failure. Patient remains in atrial fibrillation but rate seems to be fairly well-controlled this morning being followed by cardiology echocardiogram recently showed normal systolic left ventricular function, but he does have moderate mitral regurgitation Patient was reevaluated today on 06/10/2023, remains in the ICU, he is on IV fluid at 120 cc/h patient is off norepinephrine since 6 AM this morning. Remains on Zosyn IV fluid was changed today to D5W with 1 amp of bicarb for his mild metabolic acidosis. Hemodynamically the patient is becoming more stable hence will avoid placement of a central line if not necessarily needed.wBC count is 7 hemoglobin is 12.0 sodium is 147 and his IV fluid was changed to D5W his bicarb is 15 patient is on oral bicarb blood cultures remain negative urine cultures are pending The patient was seen today June 11, 2023 in follow-up in the intensive care unit. He is currently sitting up in bed. Awake and alert in no acute distress. He is maintaining O2 saturations in the 90s on room air. His norepinephrine has been off. His urine output remains low. He is positive 8 L of fluid resuscitation this admission. Urine output has been low. He was given Lasix 40 mg IVP x 1. He has D5W with 1 amp of sodium bicarb at 100 MLS per hour. White count 5.7. Hemoglobin 13.0. Platelets 186. Sodium 145. Potassium 4.2. Bicarb 16. BUN 6. Creatinine 0.64. Glucose 236. He is continued on bro nchodilators. Antibiotics in the form of Zosyn. Anticoagulated with Eliquis. The patient is seen today June 12, 2023 and follow-up on the intensive care unit. He is currently awake and alert in no acute distress. Maintaining O2 saturation in the 90s on room air. He is up in a chair. He is D5W with 1 amp of bicarb at 100 MLS per hour. Sodium 144. Potassium 2.5. Bicarb 23. BUN 4. Creatinine 0.59. Glucose 195. He remains on antibiotics in the form of Augmentin. Procalcitonin 0.07. Potassium is being replaced. Anticoagulated with Eliquis. Objective - Vital Signs Vital signs: Vital Signs Temp 96.7 F L 06/12/23 02:00 Pulse 67 06/12/23 02:00 Resp 15 06/12/23 02:00 BP 94/58 06/12/23 02:00 Pulse Ox 96 06/11/23 20:00 FiO2 Intake & Output 06/11/23 06/12/23 06/12/23 18:59 06:59 18:59 Intake Total 1775 900 300 Output Total 3580 835 130 Balance -1805 65 170 Weight 76.9 kg Intake: IV 1500 900 300 Dextrose 5% in Water 1, 1300 900 300 000 ml @ 100 mls/hr IV . Q11H JAY with Sodium Bicarb (1 Meq/ml) 100 ml Rx#:[id number] Piperacillin-Tazobactam 3 200 .375 gm In Sodium Chloride 0.9% 100 ml @ 25 mls/hr IVPB Q8HR JAY Rx# :[id number] Oral 275 Output: Urine 3580 835 130 Other: Voiding Method Indwelling Catheter Indwelling Catheter # Bowel Movements 1 - Exam General:, Alert 82-year-old male patient, up in a chair, on room air, not in any distress. Skin: Skin is warm and dry and no rashes or lesions are noted. Dry skin noted. Eye: Pupils are equal, round and reactive to light, extra-ocular movements are intact; there is normal conjunctiva bilaterally. Ears, nose, mouth and throat: There are moist mucous membranes and no oral lesions. Neck: The neck is supple, there is no tenderness or JVD. Cardiovascular: Irregular irregular rhythm 2/6 systolic murmur throughout the precordium Respiratory: Diminished breath sound bilaterally no crackles rhonchi or wheezes Gastrointestinal: Soft nontender no megaly no rebound no guarding. Musculoskeletal: No limitation range of motion no deformity Neurological: No gross focal neurologic deficit. No further confusion noted today Psychiatric: Flat affect, normal mood, normal mental status examination - Labs CBC & Chem 7: 06/11/23 07:26 06/12/23 10:12 Labs: Abnormal Lab Results - Last 24 Hours (Table) 06/11/23 06/11/23 06/12/23 Range/Units 17:04 21:09 07:01 Potassium (3.5-5.1) mmol/L Chloride (98-107) mmol/L BUN (9-20) mg/dL Creatinine (0.66-1.25) mg/dL Glucose (74-99) mg/dL POC Glucose (mg/dL) 247 H 242 H 226 H (70-110) mg/dL Calcium (8.4-10.2) mg/dL 06/12/23 06/12/23 Range/Units 10:12 11:06 Potassium 2.5 L* (3.5-5.1) mmol/L Chloride 114 H (98-107) mmol/L BUN 4 L (9-20) mg/dL Creatinine 0.59 L (0.66-1.25) mg/dL Glucose 195 H (74-99) mg/dL POC Glucose (mg/dL) 195 H (70-110) mg/dL Calcium 7.4 L (8.4-10.2) mg/dL Assessment and Plan Assessment: Acute sepsis,/septic shock likely sources could be related to his urinary tract infection or colitis, urine culture positive for Mariaa only. Acute diabetic ketoacidosis, resolved with IV fluids Acute lactic acidosis secondary to above COVID-19 infection without evidence of COVID-pneumonia Permanent atrial fibrillation, rate controlled at present Benign prostatic hyperplasia Type 2 diabetes History of depression Benign essential hypertension Dyslipidemia History of CVA/TIA 2018 Hypokalemia, receiving supplements Plan: The patient was seen and evaluated Labs and medications reviewed Stable and on room air Replace potassium Transfer to the regular medical floor DNR/DNI CODE STATUS We will continue to follow I have personally seen and examined the patient, performed the documentation and the assessment and plan as written. Number of minutes spent on the visit: 10.
[2023-06-12] MEDS ORDERED: ZINC OXIDE PASTE (Z-GUARD) 1 APPLIC TOPICAL PRN (12:51)
[2023-06-12] MEDS: POTASSIUM BICARBONATE/CIT AC 20 MEQ TABLET.EFF NG-TUBE SCH ×2 (13:54→15:39)
--- NOTE | 2023-06-12 15:43 | P.PN ---
Subjective HISTORY OF PRESENT ILLNESS: This is a 82-year-old male with a past medical history significant for diabetes, hypertension, hyperlipidemia, CVA, and permanent atrial fibrillation.. Patient used to follow in the office with Dr. Soria but has not been seen since April 2021. We have been asked to see the patient in consultation for atrial fibrillation. Patient examined at the bedside in the emergency room. There is no family present at time of examination. Patient is lethargic and unable to provide any HPI. Apparently, he was transferred to [facility] from the [facility] on [address] Patient was transferred secondary to sepsis and urinary tract infection. The patient has been hypotensive throughout the night with a systolic blood pressure between 7080. Bedside telemetry reveals atrial fibrillation with controlled ventricular rate. Patient's blood pressure at time of examination is 72/50. DIAGNOSTICS: - EKG reveals atrial fibrillation with controlled ventricular rate. Right bundle branch block. - Chest xray not available at time of dictation - CT brain: Large old right-sided infarct. Chronic appearing periventricular white matter ischemic type changes with atrophy. - Laboratory data: WBC 13.2. Hemoglobin 12.8. Platelet count 239. Sodium 144. Potassium 3.8. BUN 16. Creatinine 0.94. Lactic acid 4.2. Repeat 3.3. Troponin negative times 3. proBNP 5630. - Current home cardiac medications include Eliquis 5 mg twice a day, Lipitor 20 mg at night, Lasix 40 mg daily, metoprolol titrate 100 mg twice a day - Most recent echocardiogram obtained in 2020 revealed ejection fraction 50-55%, mild MR, mild TR 06/11 Patient seen and examined. Patient denies any chest pain or pressure or shortness breath. He has had borderline blood pressures with 90s over 60s overnight however map adequate. He has been tolerating the metoprolol. Heart rates well controlled. Remains on anticoagulation without any significant hematochezia or melena. 06/12 Patient seen and examined. Patient denies any chest pain or pressure. Maintaining blood pressures in the 90s systolic. 0.59 with a potassium of 2.5 which is being replaced. PHYSICAL EXAM: VITAL SIGNS: Reviewed. GENERAL: Well-developed in no acute distress. HEENT: Head is normocephalic. Pupils are equal, round. Sclerae anicteric. Mucous membranes of the mouth are moist. Neck supple. No JVD or thyromegaly LUNGS: Respirations even and unlabored. Lungs essentially clear to auscultation bilaterally. HEART: Irregular rate and rhythm. S1 and S2 heard. ABDOMEN: Soft. Nondistended. Nontender. EXTREMITIES: Normal range of motion. No clubbing or cyanosis. Peripheral pulses intact. Trace bilateral lower extremity edema NEUROLOGIC: Lethargic ASSESSMENT: Sepsis Urinary tract infection Acute COVID-19 Hypotension Lactic acidosis Permanent atrial fibrillation with controlled ventricular rate Known right bundle branch block History of hypertension History of hyperlipidemia History of CVA Diabetes Moderate mitral regurgitation PLAN: Echocardiogram showed preserved EF with moderate mitral regurgitation Continue with metoprolol for rate control. Blood pressure is borderline however appears to be tolerating with adequate MAP Continue with anticoagulation. Potassium was replaced. Continue with current regimen and hopeful DC in next 24-48 hrs. Objective - Vital Signs Vital signs: Vital Signs Temp 97.4 F L 06/12/23 14:00 Pulse 66 06/12/23 14:00 Resp 10 L 06/12/23 14:00 BP 91/65 06/12/23 14:00 Pulse Ox 94 L 06/12/23 14:00 FiO2 Intake & Output 06/11/23 06/12/23 06/12/23 18:59 06:59 18:59 Intake Total 1775 900 520 Output Total 3580 835 305 Balance -1805 65 215 Weight 76.9 kg Intake: IV 1500 900 400 Dextrose 5% in Water 1, 1300 900 400 000 ml @ 100 mls/hr IV . Q11H JAY with Sodium Bicarb (1 Meq/ml) 100 ml Rx#:[id number] Piperacillin-Tazobactam 3 200 .375 gm In Sodium Chloride 0.9% 100 ml @ 25 mls/hr IVPB Q8HR JAY Rx# :[id number] Oral 275 120 Output: Urine 3580 835 305 Other: Voiding Method Indwelling Catheter Indwelling Catheter # Bowel Movements 1 1 - Labs CBC & Chem 7: 06/11/23 07:26 06/12/23 10:12 Labs: Abnormal Lab Results - Last 24 Hours (Table) 06/11/23 06/11/23 06/12/23 Range/Units 17:04 21:09 07:01 Potassium (3.5-5.1) mmol/L Chloride (98-107) mmol/L BUN (9-20) mg/dL Creatinine (0.66-1.25) mg/dL Glucose (74-99) mg/dL POC Glucose (mg/dL) 247 H 242 H 226 H (70-110) mg/dL Calcium (8.4-10.2) mg/dL 06/12/23 06/12/23 Range/Units 10:12 11:06 Potassium 2.5 L* (3.5-5.1) mmol/L Chloride 114 H (98-107) mmol/L BUN 4 L (9-20) mg/dL Creatinine 0.59 L (0.66-1.25) mg/dL Glucose 195 H (74-99) mg/dL POC Glucose (mg/dL) 195 H (70-110) mg/dL Calcium 7.4 L (8.4-10.2) mg/dL
[2023-06-12 16:46] LABS: Glucose,Whole Blood 147 mg/dL (70-110)
[2023-06-12] MEDS: POTASSIUM CHLORIDE 10 MEQ in WATER FOR INJECTION 1 100ML.BAG IVPB SCH ×3 (19:29→22:07)
[2023-06-12 20:27] LABS: Glucose,Whole Blood 95 mg/dL (70-110)
[2023-06-12] MEDS: traZODone HCL 100 MG TAB PO SCH (20:31)
[2023-06-12] MEDS: ATORVASTATIN 20 MG TAB PO SCH (20:31)
--- NOTE | 2023-06-12 20:56 | P.PN ---
Progress Note - Text Progress Note Date: 06/12/23 Chief Complaint: Sepsis This is a 82-year-old patient, follows with Dr. Ayaan Valdovinos. Patient was transferred to the ER from [facility] stand-alone ER on [address] . For sepsis/suspected UTI. Patient had presented there with some abdominal pain. Also having loose stool every day maybe once a day. Also was in A-fib with rapid ventricular rate. Was put on Cardizem given IV fluids and started on Zosyn. CFD abdomen had revealed some nonspecific inflammatory findings. And he was transferred here. In the ER patient tested positive for COVID-19. Patient rather tired. But able to normally walk independently. Denies any fever and chills. Was positive for lactic acid in the ER and given IV fluids. I saw the patient in the trauma room. Patient only able to answer some questions slowly. June 08, 2023: This morning patient became hypotensive. DKA had resolved. Placed on sliding scale. Patient to be moved to the ICU. Director Cost consulted. IV fluids. Started on Levophed. Sliding scale insulin. June 09, 2023: ICU. Daughter Yamileth at the bedside. Medical POA. She now tells me that patient is nonambulatory. Does use a wheelchair. Chronic left- sided weakness. Eating very little. Remains on IV Levophed. Atrial fibrillation rate controlled. IV Zosyn. Patient been having loose watery 2 bowel movements a day for some time. CODE STATUS discussed with the daughter at the bedside. Made DNR. June 10: ICU. IV Levophed. Remains in A-fib. Rate controlled. Laying in bed. Tired. IV Zosyn. Blood cultures negative till now. Bicarbonate 15. Changed to sodium bicarbonate drip. June 11: ICU. A-fib controlled. Propped up in bed. Answering questions. Daughter at the bedside. Eating some. Off Levophed. Sodium bicarbonate drip. IV Zosyn. Blood cultures negative in 72 hours. Urine culture grew Mariaa albicans. Will add Diflucan. DC Antonio in a.m. June 12: Sitting up. Holding a simple conversation. Daughter at the bedside. Reminded the nurse to DC the Antonio catheter. On room air. Decreased appetite. Hold Ozempic. Add Metamucil. To bulk up the stool. Active Medications Acetaminophen (Acetaminophen Tab 325 Mg Tab) 650 mg PO Q6HR PRN PRN Reason: Mild Pain or Fever > 100.5 Last Admin: 06/10/23 12:16 Dose: 650 mg Hydrocodone Bitart/Acetaminophen (Hydrocodone/Apap 5-325mg 1 Each Tab) 1 each PO Q6H PRN PRN Reason: Pain Last Admin: 06/12/23 09:08 Dose: 1 each Albuterol Sulfate (Albuterol Hfa Inhaler) 2 puff INHALATION RT-Q6H PRN PRN Reason: Shortness Of Breath Amoxicillin/Clavulanate Potassium (Amoxic-Pot Clav 875-125mg 1 Each Tab) 1 each PO Q12HR JAY; Protocol Last Admin: 06/12/23 20:47 Dose: Not Given Apixaban (Apixaban 5 Mg Tab) 5 mg PO BID [facility]; Protocol Last Admin: 06/12/23 20:30 Dose: 5 mg Atorvastatin Calcium (Atorvastatin 20 Mg Tab) 20 mg PO HS [facility] Last Admin: 06/12/23 20:31 Dose: 20 mg Citalopram Hydrobromide (Citalopram Hydrobromide 20 Mg Tab) 20 mg PO DAILY [facility] Last Admin: 06/12/23 08:02 Dose: 20 mg Dextrose/Water (Dextrose 50% Syringe 50 Ml) 25 ml IVP PER PROTOCOL PRN; Protocol PRN Reason: Hypoglycemia Dextrose/Water (Dextrose 50% Syringe 50 Ml) 25 ml IVP PER PROTOCOL PRN; Protocol PRN Reason: Hypoglycemia Dextrose/Water (Dextrose 50% Syringe 50 Ml) 50 ml IVP PER PROTOCOL PRN; Protocol PRN Reason: Hypoglycemia Fluconazole (Fluconazole 100 Mg Tab) 100 mg PO DAILY [facility]; Protocol Last Admin: 06/12/23 08:02 Dose: 100 mg Gabapentin (Gabapentin 300 Mg Cap) 600 mg PO TID PRN PRN Reason: Pain Last Admin: 06/07/23 20:31 Dose: 600 mg Potassium Chloride 10 meq/ IV (Solution) 100 mls @ 100 mls/hr IVPB Q1HR JAY; Protocol Stop: 06/13/23 00:59 Last Admin: 06/12/23 20:31 Dose: 100 mls/hr Insulin Aspart (Insulin Aspart (Novolog) 100 Unit/Ml Vial) 0 unit SQ ACHS JAY; Protocol Last Admin: 06/12/23 20:34 Dose: Not Given Metoprolol Tartrate (Metoprolol Tartrate 50 Mg Tab) 50 mg PO BID [facility] Last Admin: 06/12/23 20:34 Dose: 50 mg Miscellaneous Information (Magnesium Replacement Protocol 1 Each Misc) 1 each MISCELLANE DAILY PRN; Protocol PRN Reason: Per Protocol Miscellaneous Information (Potassium Replacement Protocol 1 Each Misc) 1 each MISCELLANE DAILY PRN; Protocol PRN Reason: Per Protocol Naloxone HCl (Naloxone 0.4 Mg/Ml 1 Ml Vial) 0.2 mg IV Q2M PRN PRN Reason: Opioid Reversal Non-Formulary Medication (Semaglutide [Ozempic]) 0.5 mg SQ [facility] Ondansetron HCl (Ondansetron 4 Mg/2 Ml Vial) 4 mg IVP Q8HR PRN PRN Reason: Nausea And Vomiting Pantoprazole Sodium (Pantoprazole 40 Mg Tablet) 40 mg PO DAILY [facility] Last Admin: 06/12/23 08:02 Dose: 40 mg Petrolatum (Zinc Oxide Paste (Z-Guard) 1 Applic) 1 applic TOPICAL BID PRN; Protocol PRN Reason: Wound Healing Last Admin: 06/12/23 12:58 Dose: 1 applic Tamsulosin HCl (Tamsulosin 0.4 Mg Cap.Er.24h) 0.4 mg PO DAILY [facility] Last Admin: 06/12/23 08:02 Dose: 0.4 mg Trazodone HCl (Trazodone Hcl 100 Mg Tab) 100 mg PO HS [facility] Last Admin: 06/12/23 20:31 Dose: 100 mg Social history: Lives with his daughter. Retired. Non-smoker. History of alcohol Physical examination: VITAL SIGNS:. 97.4, 66, 12, 91/65, 94% room air GENERAL: Reclining in bed awake, comfortable EYES: Pupils equal. Conjunctiva soraya l. HEENT: External appearance of nose and ears normal, oral cavity grossly normal. NECK: JVD not raised; masses not palpable. HEART: First and second heart sounds are normal; no edema. LUNGS: Respiratory rate normal; clear to auscultation. ABDOMEN: Soft, mild tenderness, no guarding rigidity liver spleen not palpable, no masses palpable. PSYCH: [Able to answer simple questions, MUSCULOSKELETAL:No Clubbing/cyanosis;muscles-grossly intact. OA NEUROLOGICAL: Chronic left-sided weakness INVESTIGATIONS, reviewed in the clinical context: June 12: Potassium 2.5. 4 creatinine 0.49 June 11: White count 5.7 hemoglobin 13 potassium 4.2. 6 creatinine 0.64 June 10: White count 7 hemoglobin 12.1 platelets 148 potassium 4.8 creatinine 0.76 June 09: White count 9 hemoglobin 8.5 platelets 159 sodium 146 potassium 2.8 creatinine 0.9 White count 16.9 hemoglobin 15.4 platelets 328 sodium 145 potassium 3.4 BUN 15 creatinine 1.12 blood glucose 286 lactic acid 4.9 UA: Positive for leukoesterase WBC Serum acetone positive COVID-19 PCR: Detected [influenza type A, type B, RSV: Not detected] EKG tracing personally reviewed by me-atrial fibrillation with a rate of 103 Chest x-ray from repeated from other place- unremarkable Assessment and plan: -Septic shock: Better IV Levophed-discontinued. IV Zosyn-stop. IV fluids -sepsis from low-grade colitis. Patient been having abdominal pain for about 2 months with some diarrhea.: Better IV Zosyn-changed to Augmentin. IV fluids. Augmentin l. Blood culture-negative -Lactic acidosis from above: Improved IV fluids -Acute metabolic encephalopathy from sepsis: Improved. -Atrial fibrillation with rate controlled Received IV Cardizem at the outside hospital. Lopressor. Eliquis -Severe metabolic acidosis: Corrected sodium bicarbonate drip -Candiduria Diflucan -Chronic left-sided paresis, from prior stroke -Diabetic ketoacidosis: Resolved -BPH Flomax -Diabetes mellitus type 2 , On Ozempic-hold. Accu-Cheks with sliding scale -Depression Celexa, trazodone -Hyperlipidemia Lipitor -DNR [advance care planning: June 09, 2023: With daughter Yamileth. She understands patient overall prognosis guarded. Baseline with good left-sided weakness. Full discussion was held. She decided to make the patient DNR. Questions answered. She understands care will be provided till then including medications.]. Time spent about 25 minutes Overall doing better. Severe hypokalemia. Replace. Hopefully discharge in next 24 hours. 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
[2023-06-12] MEDS ORDERED: POTASSIUM CHLORIDE ER 20 MEQ TAB.ER PO STA ×2 (21:08→21:18)
[2023-06-12] MEDS: PSYLLIUM HUSK 100% 6 GM PACKET PO SCH (21:26)
[2023-06-13] MEDS ORDERED: POTASSIUM CHLORIDE ER 20 MEQ TAB.ER PO ONE
[2023-06-13 06:11] LABS: Glucose,Whole Blood 120 mg/dL (70-110)
[2023-06-13] MEDS: INSULIN ASPART (NovoLOG) 100 UNIT/ML VIAL SQ SCH ×3 (06:17→17:54)
[2023-06-13 06:18] LABS: African American GFR (CKD) >90 (>60 ml/min/1.73 sqM); Blood Urea Nitrogen 4 mg/dL (9-20); Calcium 7.7 mg/dL (8.4-10.2); Carbon Dioxide 31 mmol/L (22-30); Glucose 132 mg/dL (74-99); Non-African American GFR(CKD) 90 (>60 ml/min/1.73 sqM)
[2023-06-13 06:27] LABS: Potassium 3.8 mmol/L (3.5-5.1); Sodium 142 mmol/L (137-145)
[2023-06-13 06:33] LABS: Anion Gap 0 mmol/L; Chloride 111 mmol/L (98-107)
[2023-06-13] MEDS ORDERED: POTASSIUM CHLORIDE ER 20 MEQ TAB.ER PO SCH (06:37)
[2023-06-13] MEDS: PANTOPRAZOLE 40 MG TABLET PO SCH (08:05)
[2023-06-13] MEDS: APIXABAN 5 MG TAB PO SCH (08:05)
[2023-06-13] MEDS: AMOXIC-POT CLAV 875-125MG 1 EACH TAB PO SCH (08:05)
[2023-06-13] MEDS: METOPROLOL TARTRATE 50 MG TAB PO SCH (08:05)
[2023-06-13] MEDS: TAMSULOSIN 0.4 MG CAP.ER.24H PO SCH (08:05)
[2023-06-13] MEDS: PSYLLIUM HUSK 100% 6 GM PACKET PO SCH (08:05)
[2023-06-13] MEDS: FLUCONAZOLE 100 MG TAB PO SCH (08:06)
[2023-06-13] MEDS: CITALOPRAM HYDROBROMIDE 20 MG TAB PO SCH (08:06)
[2023-06-13] MEDS ORDERED: NON FORMULARY DRUG (Semaglutide [Ozempic] 0.25 MG/0.368 ML Pen.Injctr) SQ SCH (09:00)
[2023-06-13] MEDS: ACETAMINOPHEN TAB 325 MG TAB PO PRN (10:09)
[2023-06-13 11:07] LABS: Glucose,Whole Blood 193 mg/dL (70-110)
--- NOTE | 2023-06-13 11:21 | P.PN ---
Subjective Progress Note Date: 06/13/23 This is an 82-year-old white male with history of multiple medical problems including recurrent urinary tract infections, hypertension, dyslipidemia, chronic atrial fibrillation/permanent, patient was seen at the emergency room in [facility] on [address], and he was noted to have urinary tract infection, hypotension, and possible sepsis. Patient was also in atrial fibrillation with controlled ventricular rate. Blood pressure was low, hence the patient was transferred from the ER to our ER for further evaluation. I saw this patient in the ER, he is not a great historian, however I discussed his condition with the daughter at bedside, apparently the patient presented with abdominal pain to the ER, and has been experiencing loose stool every day at least once a day. Considering patient was noted to be in atrial fibrillation with RVR upon presentation, patient was given fluids, patient was placed on Zosyn, CT of the abdomen and pelvis showed nonspecific inflammatory findings. When I saw the patient in the ER he was hypotensive, I recommended more fluid boluses, recommended norepinephrine and I recommended admission to the ICU labs were reviewed, patient had leukocytosis with WBC of 16.9, ABG showed a pO2 of 95 pCO2 28 pH of 7.31 bicarb 16 with anion gap of 13, however follow-up basic metabolic profile showed anion gap down to 7 and carbon dioxide of 20. Renal profile was noted to be relatively normal lactic acid on admission was 5.6 follow-up lactic acid was 4.1 BNP level was over 5000. Troponin 0.032. Chest x-ray showed mostly atelectasis at the bases, no evidence of pulmonary edema. Was reevaluated today on 06/09/2023, patient remains in the ICU, I saw him yesterday in consultation and recommended ICU admission patient was in the ER at the time. Remains on norepinephrine at 0.08 mcg/kg/min remains on IV fluid 0.9 normal saline at 120 cc/h remains on oral bicarb for his metabolic acidosis remains on Zosyn empirically and he is on Eliquis for his atrial fibrillation. Last night the patient developed hypotension received fluid boluses and received norepinephrine which has been tapered down to 0.08, patient has good urine output today, blood cultures are negative so far, urine cultures are pending. Patient is on room air, and he is not in any distress WBC count is 9 hemoglobin 8.5 renal profile is normal with BUN of 10 creatinine 0.9 bicarb remains low at 14, patient has hyperchloremic metabolic acidosisnone anion gap. Chest x-ray this morning showed no evidence of pneumonia and no evidence of congestive heart failure. Patient remains in atrial fibrillation but rate seems to be fairly well-controlled this morning being followed by cardiology echocardiogram recently showed normal systolic left ventricular function, but he does have moderate mitral regurgitation Patient was reevaluated today on 06/10/2023, remains in the ICU, he is on IV fluid at 120 cc/h patient is off norepinephrine since 6 AM this morning. Remains on Zosyn IV fluid was changed today to D5W with 1 amp of bicarb for his mild metabolic acidosis. Hemodynamically the patient is becoming more stable hence will avoid placement of a central line if not necessarily needed.wBC count is 7 hemoglobin is 12.0 sodium is 147 and his IV fluid was changed to D5W his bicarb is 15 patient is on oral bicarb blood cultures remain negative urine cultures are pending The patient was seen today June 11, 2023 in follow-up in the intensive care unit. He is currently sitting up in bed. Awake and alert in no acute distress. He is maintaining O2 saturations in the 90s on room air. His norepinephrine has been off. His urine output remains low. He is positive 8 L of fluid resuscitation this admission. Urine output has been low. He was given Lasix 40 mg IVP x 1. He has D5W with 1 amp of sodium bicarb at 100 MLS per hour. White count 5.7. Hemoglobin 13.0. Platelets 186. Sodium 145. Potassium 4.2. Bicarb 16. BUN 6. Creatinine 0.64. Glucose 236. He is continued on bro nchodilators. Antibiotics in the form of Zosyn. Anticoagulated with Eliquis. The patient is seen today June 12, 2023 and follow-up on the intensive care unit. He is currently awake and alert in no acute distress. Maintaining O2 saturation in the 90s on room air. He is up in a chair. He is D5W with 1 amp of bicarb at 100 MLS per hour. Sodium 144. Potassium 2.5. Bicarb 23. BUN 4. Creatinine 0.59. Glucose 195. He remains on antibiotics in the form of Augmentin. Procalcitonin 0.07. Potassium is being replaced. Anticoagulated with Eliquis. The patient is seen June 13, 2023 in follow-up in the intensive care unit. He remains a regular medical floor overflow. He is sitting up in bed. He is maintaining O2 saturations in the 90s on room air. No IV fluids. His procalcitonin was 0.07. Augmentin will be discontinued. Culture positive for Mariaa. Blood cultures revealed no growth. Sodium 142. Potassium 3.8. Bicarb 31. BUN 4. Creatinine 0.64. Glucose 132. Objective - Vital Signs Vital signs: Vital Signs Temp 96.6 F L 06/13/23 08:00 Pulse 82 06/13/23 08:00 Resp 19 06/13/23 08:00 BP 107/78 06/13/23 08:00 Pulse Ox 96 06/13/23 08:00 FiO2 Intake & Output 06/12/23 06/13/23 06/13/23 18:59 06:59 18:59 Intake Total 520 100 Output Total 380 360 Balance 140 -260 Intake: IV 400 100 Dextrose 5% in Water 1, 400 000 ml @ 100 mls/hr IV . Q11H JAY with Sodium Bicarb (1 Meq/ml) 100 ml Rx#:[id number] Potassium Chloride 10 meq 100 In Water For Injection 1 100ml.bag @ 100 mls/hr IVPB Q1HR JAY Rx#: [id number] Oral 120 Output: Urine 380 360 Other: Voiding Method Indwelling Catheter Indwelling Catheter # Bowel Movements 1 1 - Exam General:, Alert pleasant 82-year-old male patient, sitting up in bed, on room air, not in any distress. Skin: Skin is warm and dry and no rashes or lesions are noted. Dry skin noted. Eye: Pupils are equal, round and reactive to light, extra-ocular movements are intact; there is normal conjunctiva bilaterally. Ears, nose, mouth and throat: There are moist mucous membranes and no oral lesions. Neck: The neck is supple, there is no tenderness or JVD. Cardiovascular: Irregular irregular rhythm 2/6 systolic murmur throughout the precordium Respiratory: Diminished breath sound bilaterally no crackles rhonchi or wheezes Gastrointestinal: Soft nontender no megaly no rebound no guarding. Musculoskeletal: No limitation range of motion no deformity Neurological: No gross focal neurologic deficit. No further confusion noted today Psychiatric: Flat affect, normal mood, normal mental status examination - Labs CBC & Chem 7: 06/11/23 07:26 06/13/23 05:31 Labs: Abnormal Lab Results - Last 24 Hours (Table) 06/12/23 06/12/23 06/13/23 Range/Units 16:45 17:22 05:31 Potassium 2.9 L (3.5-5.1) mmol/L Chloride 111 H (98-107) mmol/L Carbon Dioxide 31 H (22-30) mmol/L BUN 4 L (9-20) mg/dL Creatinine 0.64 L (0.66-1.25) mg/dL Glucose 132 H (74-99) mg/dL POC Glucose (mg/dL) 147 H (70-110) mg/dL Calcium 7.7 L (8.4-10.2) mg/dL 06/13/23 06/13/23 Range/Units 06:10 11:05 Potassium (3.5-5.1) mmol/L Chloride (98-107) mmol/L Carbon Dioxide (22-30) mmol/L BUN (9-20) mg/dL Creatinine (0.66-1.25) mg/dL Glucose (74-99) mg/dL POC Glucose (mg/dL) 120 H 193 H (70-110) mg/dL Calcium (8.4-10.2) mg/dL Microbiology - Last 24 Hours (Table) 06/07/23 15:45 Blood Culture - Final Blood 06/07/23 16:00 Blood Culture - Final Blood Assessment and Plan Assessment: Acute sepsis/septic shock likely sources could be related to his urinary tract infection or colitis, urine culture positive for Mariaa only. Acute diabetic ketoacidosis, resolved with IV fluids Acute lactic acidosis secondary to above COVID-19 infection without evidence of COVID-pneumonia Permanent atrial fibrillation, rate controlled at present Benign prostatic hyperplasia Type 2 diabetes History of depression Benign essential hypertension Dyslipidemia History of CVA/TIA 2018 Hypokalemia, receiving supplements Plan: The patient was seen and evaluated Labs and medications reviewed Procalcitonin within normal limits Augmentin discontinued Stable and on room air Regular medical floor over flow DNR/DNI CODE STATUS Plan is to return home with his daughter at discharge I have personally seen and examined the patient, performed the documentation and the assessment and plan as written. Number of minutes spent on the visit: 10.
--- NOTE | 2023-06-13 13:15 | P.PN ---
Subjective HISTORY OF PRESENT ILLNESS: This is a 82-year-old male with a past medical history significant for diabetes, hypertension, hyperlipidemia, CVA, and permanent atrial fibrillation.. Patient used to follow in the office with Dr. Soria but has not been seen since April 2021. We have been asked to see the patient in consultation for atrial fibrillation. Patient examined at the bedside in the emergency room. There is no family present at time of examination. Patient is lethargic and unable to provide any HPI. Apparently, he was transferred to [facility] from the [facility] on [address]. Patient was transferred secondary to sepsis and urinary tract infection. The patient has been hypotensive throughout the night with a systolic blood pressure between 7080. Bedside telemetry reveals atrial fibrillation with controlled ventricular rate. Patient's blood pressure at time of examination is 72/50. DIAGNOSTICS: - EKG reveals atrial fibrillation with controlled ventricular rate. Right bundle branch block. - Chest xray not available at time of dictation - CT brain: Large old right-sided infarct. Chronic appearing periventricular white matter ischemic type changes with atrophy. - Laboratory data: WBC 13.2. Hemoglobin 12.8. Platelet count 239. Sodium 144. Potassium 3.8. BUN 16. Creatinine 0.94. Lactic acid 4.2. Repeat 3.3. Troponin negative times 3. proBNP 5630. - Current home cardiac medications include Eliquis 5 mg twice a day, Lipitor 20 mg at night, Lasix 40 mg daily, metoprolol titrate 100 mg twice a day - Most recent echocardiogram obtained in 2020 revealed ejection fraction 50-55%, mild MR, mild TR 06/11 Patient seen and examined. Patient denies any chest pain or pressure or shortness breath. He has had borderline blood pressures with 90s over 60s overnight however map adequate. He has been tolerating the metoprolol. Heart rates well controlled. Remains on anticoagulation without any significant hematochezia or melena. 06/12 Patient seen and examined. Patient denies any chest pain or pressure. Maintaining blood pressures in the 90s systolic. 0.59 with a potassium of 2.5 which is being replaced. 06/13 Patient seen and examined. Patient denies any chest pain or pressure. States t hat shortness breath is stable. Anxious to go home. Creatinine 0.6. Blood pressures systolic 90s to 100s and heart rates controlled, off of telemetry. Remains on metoprolol 50 twice a day as well as Eliquis. PHYSICAL EXAM: VITAL SIGNS: Reviewed. GENERAL: Well-developed in no acute distress. HEENT: Head is normocephalic. Pupils are equal, round. Sclerae anicteric. Mucous membranes of the mouth are moist. Neck supple. No JVD or thyromegaly LUNGS: Respirations even and unlabored. Lungs essentially clear to auscultation bilaterally. HEART: Irregular rate and rhythm. S1 and S2 heard. ABDOMEN: Soft. Nondistended. Nontender. EXTREMITIES: Normal range of motion. No clubbing or cyanosis. Peripheral pulses intact. Trace bilateral lower extremity edema NEUROLOGIC: Lethargic ASSESSMENT: Sepsis Urinary tract infection Acute COVID-19 Hypotension Lactic acidosis Permanent atrial fibrillation with controlled ventricular rate Known right bundle branch block History of hypertension History of hyperlipidemia History of CVA Diabetes Moderate mitral regurgitation PLAN: Echocardiogram showed preserved EF with moderate mitral regurgitation Continue with metoprolol for rate control. Blood pressure is borderline however appears to be tolerating with adequate MAP Continue with anticoagulation. Patient appears stable for discharge from a cardiology standpoint. Continue with current supportive care. Objective - Vital Signs Vital signs: Vital Signs Temp 96.6 F L 06/13/23 08:00 Pulse 82 06/13/23 08:00 Resp 19 06/13/23 08:00 BP 107/78 06/13/23 08:00 Pulse Ox 96 06/13/23 08:00 FiO2 Intake & Output 06/12/23 06/13/23 06/13/23 18:59 06:59 18:59 Intake Total 520 100 Output Total 380 360 Balance 140 -260 Intake: IV 400 100 Dextrose 5% in Water 1, 400 000 ml @ 100 mls/hr IV . Q11H JAY with Sodium Bicarb (1 Meq/ml) 100 ml Rx#:[id number] Potassium Chloride 10 meq 100 In Water For Injection 1 100ml.bag @ 100 mls/hr IVPB Q1HR JAY Rx#: [id number] Oral 120 Output: Urine 380 360 Other: Voiding Method Indwelling Catheter Indwelling Catheter # Bowel Movements 1 1 - Labs CBC & Chem 7: 06/11/23 07:26 06/13/23 05:31 Labs: Abnormal Lab Results - Last 24 Hours (Table) 06/12/23 06/12/23 06/13/23 Range/Units 16:45 17:22 05:31 Potassium 2.9 L (3.5-5.1) mmol/L Chloride 111 H (98-107) mmol/L Carbon Dioxide 31 H (22-30) mmol/L BUN 4 L (9-20) mg/dL Creatinine 0.64 L (0.66-1.25) mg/dL Glucose 132 H (74-99) mg/dL POC Glucose (mg/dL) 147 H (70-110) mg/dL Calcium 7.7 L (8.4-10.2) mg/dL 06/13/23 06/13/23 Range/Units 06:10 11:05 Potassium (3.5-5.1) mmol/L Chloride (98-107) mmol/L Carbon Dioxide (22-30) mmol/L BUN (9-20) mg/dL Creatinine (0.66-1.25) mg/dL Glucose (74-99) mg/dL POC Glucose (mg/dL) 120 H 193 H (70-110) mg/dL Calcium (8.4-10.2) mg/dL Microbiology - Last 24 Hours (Table) 06/07/23 15:45 Blood Culture - Final Blood 06/07/23 16:00 Blood Culture - Final Blood
[2023-06-13 15:19] VITALS: BP 99/79; PULSE 73; RESP 20; TEMP 96.7
[2023-06-13 17:01] LABS: Glucose,Whole Blood 163 mg/dL (70-110)
--- NOTE | 2023-06-13 19:41 | P.DS ---
Providers Date of admission: 06/07/23 17:13 Expected date of discharge: 06/13/23 Attending physician: Nestor Dinh Consults: 06/07/23 17:10 Consult Physician Routine Consulting Provider: [facility] Consult Reason/Comments: afib, episode of rvr Do you want consulting provider notified?: Yes 06/08/23 08:41 Consult Physician Routine Consulting Provider: Molina Crisostomo Consult Reason/Comments: ICU management, sepsis Do you want consulting provider notified?: Yes 06/08/23 12:42 Consult Physician Routine Consulting Provider: Garret Gómez Consult Reason/Comments: difficult catheter insertion Do you want consulting provider notified?: Yes Primary care physician: Milly Valdovinos [facility] Course: Chief Complaint: Sepsis This is a 82-year-old patient, follows with Dr. Ayaan Valdovinos. Patient was transferred to the ER from [facility] ER on [address] For sepsis/suspected UTI. Patient had presented there with some abdominal pain. Also having loose stool every day maybe once a day. Also was in A-fib with rapid ventricular rate. Was put on Cardizem given IV fluids and started on Zosyn. CFD abdomen had revealed some nonspecific inflammatory findings. And he was transferred here. In the ER patient tested positive for COVID-19. Patient rather tired. But able to normally walk independently. Denies any fever and chills. Was positive for lactic acid in the ER and given IV fluids. I saw the patient in the trauma room. Patient only able to answer some questions slowly. June 08, 2023: This morning patient became hypotensive. DKA had resolved. Placed on sliding scale. Patient to be moved to the ICU. Health Information Tech consulted. IV fluids. Started on Levophed. Sliding scale insulin. June 09, 2023: ICU. Daughter Yamileth at the bedside. Medical POA. She now tells me that patient is nonambulatory. Does use a wheelchair. Chronic left- sided weakness. Eating very little. Remains on IV Levophed. Atrial fibrillation rate controlled. IV Zosyn. Patient been having loose watery 2 bowel movements a day for some time. CODE STATUS discussed with the daughter at the bedside. Made DNR. June 10: ICU. IV Levophed. Remains in A-fib. Rate controlled. Laying in bed. Tired. IV Zosyn. Blood cultures negative till now. Bicarbonate 15. Changed to sodium bicarbonate drip. June 11: ICU. A-fib controlled. Propped up in bed. Answering questions. Daughter at the bedside. Eating some. Off Levophed. Sodium bicarbonate drip. IV Zosyn. Blood cultures negative in 72 hours. Urine culture grew Mariaa albicans. Will add Diflucan. DC Antonio in a.m. June 12: Sitting up. Holding a simple conversation. Daughter at the bedside. Reminded the nurse to DC the Antonio catheter. On room air. Decreased appetite. Hold Ozempic. Add Metamucil. To bulk up the stool. June 13: Patient comfortable. Patient did not make urine after Antonio discontinued. Reinserted. Patient to hold his Ozempic until follow-up with PCP. Not eating much. Overall prognosis guarded given his age and comorbidities. Lives with his daughter. Social history: Lives with his daughter. Retired. Non-smoker. History of alcohol Physical examination: VITAL SIGNS:. 96.7, 33, 20, 99/79, 97% room air GENERAL: Reclining in bed awake, comfortable EYES: Pupils equal. Conjunctiva soraya l. HEENT: External appearance of nose and ears normal, oral cavity grossly normal. NECK: JVD not raised; masses not palpable. HEART: First and second heart sounds are normal; no edema. LUNGS: Respiratory rate normal; clear to auscultation. ABDOMEN: Soft, mild tenderness, no guarding rigidity liver spleen not palpable, no masses palpable. PSYCH: [Able to answer simple questions, MUSCULOSKELETAL:No Clubbing/cyanosis;muscles-grossly intact. OA NEUROLOGICAL: Chronic left-sided weakness INVESTIGATIONS, reviewed in the clinical context: June 13: Potassium 3.8 creatinine 0.64 June 11: White count 5.7 hemoglobin 13 potassium 4.2. 6 creatinine 0.64 White count 16.9 hemoglobin 15.4 platelets 328 sodium 145 potassium 3.4 BUN 15 creatinine 1.12 blood glucose 286 lactic acid 4.9 UA: Positive for leukoesterase WBC Serum acetone positive COVID-19 PCR: Detected [influenza type A, type B, RSV: Not detected] EKG tracing personally reviewed by me-atrial fibrillation with a rate of 103 Chest x-ray from repeated from other place- unremarkable Assessment and plan: -Septic shock: Resolved IV Levophed-discontinued. IV Zosyn-stop. IV fluids -sepsis from low-grade colitis. Patient been having abdominal pain for about 2 months with some diarrhea.: Better IV Zosyn-changed to Augmentin. IV fluids. Augmentin l. Blood culture-negative -Lactic acidosis from above: Improved IV fluids -Acute metabolic encephalopathy from sepsis: Improved. -Atrial fibrillation with rate controlled Received IV Cardizem at the outside hospital. Lopressor. Eliquis -Severe metabolic acidosis: Corrected sodium bicarbonate drip -Candiduria Diflucan-5 days -Chronic left-sided paresis, from prior stroke -Diabetic ketoacidosis: Resolved -BPH Flomax -Diabetes mellitus type 2 , On Ozempic-hold. Accu-Cheks with sliding scale -Depression Celexa, trazodone -Hyperlipidemia Lipitor -DNR [advance care planning: June 09, 2023: With daughter Yamileth. She understands patient overall prognosis guarded. Baseline with good left-sided weakness. Full discussion was held. She decided to make the patient DNR. Questions answered. She understands care will be provided till then including medications.]. Time spent about 25 minutes Disposition: Home with daughter 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 History of Any Multi-Drug Resistant Organisms: None Reported Past Surgical History: No Surgical Hx Reported Smoking Status: Never smoker Past Alcohol Use History: Daily Past Drug Use History: None Reported Plan - Discharge Summary Discharge Rx Participant: Yes New Discharge Prescriptions: New Fluconazole [Diflucan] 100 mg PO DAILY #5 tab Psyllium Husk 100% [Metamucil Packet] 6 gm PO BID #60 packet Acetaminophen Tab [Tylenol] 650 mg PO Q6HR PRN tab PRN Reason: Mild Pain Or Fever > 100.5 Continue Albuterol Inhaler [Ventolin Hfa Inhaler] 1 - 2 puff INHALATION RT-Q6H PRN PRN Reason: Shortness Of Breath traZODone HCL [Desyrel] 100 mg PO HS Tamsulosin HCl [Flomax] 0.4 mg PO DAILY Pantoprazole Sodium [Protonix] 40 mg PO DAILY Metoprolol Tartrate [Lopressor] 100 mg PO BID HYDROcodone/APAP 5-325MG [[place] 5-325] 1 tab PO Q6H PRN PRN Reason: Pain Gabapentin [Neurontin] 600 mg PO TID PRN PRN Reason: Pain Atorvastatin [Lipitor] 20 mg PO HS Citalopram Hydrobromide [Citalopram HBr] 20 mg PO DAILY Apixaban [Eliquis] 5 mg PO BID Discontinued Furosemide [Lasix] 40 mg PO DAILY Enalapril Maleate 2.5 mg PO DAILY Semaglutide [Ozempic] 0.5 mg SQ WE Ciprofloxacin HCl [Cipro] 500 mg PO Q12HR Discharge Medication List Albuterol Inhaler [Ventolin Hfa Inhaler] 1 - 2 puff INHALATION RT-Q6H PRN 07/04 [History] Apixaban [Eliquis] 5 mg PO BID 06/15/20 [History] Atorvastatin [Lipitor] 20 mg PO HS 06/15/20 [History] Citalopram Hydrobromide [Citalopram HBr] 20 mg PO DAILY 06/15/20 [History] Gabapentin [Neurontin] 600 mg PO TID PRN 06/15/20 [History] HYDROcodone/APAP 5-325MG [[place] 5-325] 1 tab PO Q6H PRN 06/15/20 [History] Metoprolol Tartrate [Lopressor] 100 mg PO BID 06/15/20 [History] Pantoprazole Sodium [Protonix] 40 mg PO DAILY 06/15/20 [History] Tamsulosin HCl [Flomax] 0.4 mg PO DAILY 06/15/20 [History] traZODone HCL [Desyrel] 100 mg PO HS 06/15/20 [History] Acetaminophen Tab [Tylenol] 650 mg PO Q6HR PRN tab 06/13/23 [Rx] Fluconazole [Diflucan] 100 mg PO DAILY #5 tab 06/13/23 [Rx] Psyllium Husk 100% [Metamucil Packet] 6 gm PO BID #60 packet 06/13/23 [Rx] Follow up Appointment(s)/Referral(s): [facility] [NON-STAFF] - 1 Week ([facility] homecare will call you to arrange a visit. ) Garret Gómez MD [STAFF PHYSICIAN] - 1-2 Days Milly Valdovinos MD [Primary Care Provider] - 06/26/23 1:20 pm Walker Mehta MD [STAFF PHYSICIAN] - 2 Weeks (Office will call with date and time of appointment.) Activity/Diet/Wound Care/Special Instructions: hold ozempic until f/u with pcp - to review Discharge Disposition: HOME SELF-CARE
== END 2023-06-13 18:36 | disposition home or self-care (01) | DRG 871 ==
LOC: EC 15:19 → 3SCARD 17:13 → 2SICU 06-08 08:44
PROVIDERS: ADMIT Hospitalist; ATTEND Hospitalist
PROC: 0VTTXZZ Resection of Prepuce, External Approach (ICD-10-PCS; principal; 2023-06-08)
DX: A41.89 Other specified sepsis (principal); E11.10 Type 2 diabetes mellitus with ketoacidosis without coma; R65.21 Severe sepsis with septic shock; U07.1 COVID-19; G93.41 Metabolic encephalopathy; I48.21 Permanent atrial fibrillation; I69.354 Hemiplegia and hemiparesis following cerebral infarction affecting left non-dominant side; J98.11 Atelectasis; B37.49 Other urogenital candidiasis; Z66 Do not resuscitate; I11.0 Hypertensive heart disease with heart failure; I50.9 Heart failure, unspecified; E86.0 Dehydration; F32.A Depression, unspecified; Z79.01 Long term (current) use of anticoagulants; E78.5 Hyperlipidemia, unspecified; G89.29 Other chronic pain; Z11.52 Encounter for screening for COVID-19; I45.10 Unspecified right bundle-branch block; N40.0 Benign prostatic hyperplasia without lower urinary tract symptoms; Z87.440 Personal history of urinary (tract) infections; K52.9 Noninfective gastroenteritis and colitis, unspecified; N47.1 Phimosis; E87.6 Hypokalemia; I08.1 Rheumatic disorders of both mitral and tricuspid valves; Z79.899 Other long term (current) drug therapy
CPT/HCPCS: 36415; 36600; 70450; 71045; 80048; 80051; 80053; 81001; 82009; 82565; 82805; 82947; 83605; 83735; 83880; 84100; 84132; 84145; 84484; 84520; 85025; 85610; 85730; 87040; 87086; 87636; 93005; 93306; 96365; 96366; 96368; 96375; 99291